=== PATIENT | male | born 1955 | race Caucasian/White ===

== ENCOUNTER 2017-10-14 10:20 | Inpatient (IN) ==
[2017-10-14] MEDS ORDERED: IOPAMIDOL 100 ML BOTTLE IJ ONE (10:21)
[2017-10-14] MEDS ORDERED: VANCOMYCIN 1,000 MG in 0.9 % SODIUM CHLORIDE 250 ML IV ONE (10:29)
[2017-10-14] MEDS ORDERED: PIPERACILLIN SODIUM/TAZOBACTAM 4.5 GM in DEXTROSE 5% IN WATER 50 ML IV ONE (10:29)
[2017-10-14] MEDS ORDERED: DILTIAZEM 25 MG/5 ML VIAL IV ONE (10:30)
[2017-10-14] MEDS ORDERED: 0.9 % SODIUM CHLORIDE 1,000 ML IV ONE ×3 (10:30→11:23)
[2017-10-14] MEDS ORDERED: MAGNESIUM SULFATE 2 GM/50 ML BAG IV ONE (10:31)
--- NOTE | 2017-10-14 10:39 | Emergency Department Note ---
Arrhythmia/Palpitations HPI - General Chief Complaint: Arrhythmia/Palpitations Stated Complaint: Tachycardia. Chest pain Time Seen by Provider: 10/14/17 10:28 Source: patient Mode of arrival: wheelchair Limitations: no limitations - History of Present Illness HPI Narrative: Patient seen critical care. Rapid heart rate, wheeled over from his physician' s office. Reports chest pressure and palpitations that began approximately one hour prior to his exam with his primary physician this morning. Comes in the setting of increasing low back pain, flank pain, abdominal distention with pain. Associated malaise. Unclear fever. Drinking increasing amounts of alcohol for "control my back pain". Several beers with hard alcohol every day History otherwise limited, patient in extremis. asplenia due to trauma and surgical removal - Related Data Home Medications Medication Instructions Recorded Confirmed Valsartan [Diovan] 80 mg PO DAILY 07/12/17 10/14/17 budesonide-formoterol HFA 80 2 puff INHALATION BID 08/12/17 10/14/17 mcg-4.5 mcg/actuation aerosol inhaler oxyCODONE HCL [Oxycodone HCl] 5 mg PO Q4HP PRN 10/14/17 10/14/17 Allergies Allergy/AdvReac Type Severity Reaction Status Date / Time No Known Drug Allergies Allergy Verified 10/14/17 10:29 Review of Systems All systems ED: reviewed and negative except as stated. Past Medical History - Past Medical History Attestation: Yes: The following information was validated with the patient. Medical history: Reports: other (Chronic back pain; alcohol abuse; asplenic) Surgical history ED: Reports: other (spleen removal; low back surgery) Family history: Reports: non-contributory - Social History smoking status: Current every day smoker Physical Exam Limitations: no limitations General appearance: alert, anxious, in distress, other (Central wasting distended abdomen) Head: atraumatic Eye: Present: normal appearance. Absent: scleral icterus ENT: normal exam, mucous membranes moist Neck: Present: normal inspection. Absent: meningismus Chest: Present: normal inspection, symmetric chest wall rise Respiratory: Present: normal lung sounds bilaterally. Absent: respiratory distress Cardiovascular: Present: tachycardia, irregular rhythm. Absent: systolic murmur Abdominal: Present: distention, tenderness, guarding, rebound, scar (midline). Absent: soft, rigidity Extremities: Present: other (thin, no edema) Neurological: Present: alert, oriented X3 Psychiatric: Present: anxious Skin: Present: other (no petechia). Absent: rash Course - Reevaluation(s) Reevaluation #1: improved rate and pain control; antibiotics handing; Time: 11:13 Reevaluation #2: requested to the bedside for reassessment; increasing pain report; patient with severe epigastric pain, radiating to mid back; pacing repeat EKG, patient converted to NSR; no ischemic findings pain consistent with tense ascites; pending paracentesis; r/o SBP Time: 14:53 Vital Signs Temperature 97.1 F 10/14/17 10:23 Pulse Rate 185 H 10/14/17 10:23 Respiratory Rate 24 H 10/14/17 10:23 Blood Pressure 170/80 10/14/17 10:23 Pulse Oximetry (%) 97 10/14/17 10:23 Temperature 97.1 F 10/14/17 10:23 Pulse Rate 135 H 10/14/17 14:17 Respiratory Rate 22 10/14/17 14:17 Blood Pressure 120/76 10/14/17 14:17 Pulse Oximetry (%) 91 10/14/17 14:17 Arrhythmia/Palpitations - Lab Data Lab results reviewed: Yes I reviewed the patient's lab results. Result diagrams: 10/14/17 10:29 10/14/17 11:08 Lab Results 10/14/17 10/14/17 10/14/17 Range/Units 10:29 10:57 11:04 WBC 12.4 H (4.5-11.0) K/mcL RBC 3.72 L (4.50-5.90) M/mcL Hgb 13.6 (13.5-16.5) g/dL Hct 40.0 L (41.0-55.0) % POC Hct (41.0-55.0) % MCV 107.4 H (80.0-100.0) fL MCH 36.6 H (26.0-34.0) pg MCHC 34.1 (31.0-36.0) g/dL RDW 14.8 H (11.5-14.5) % Plt Count 101 L (140-440) K/mcL MPV 12.8 H (7.4-10.4) fL Gran % 59.6 (38.0-78.0) % Lymph % (Auto) 21.8 (15.5-49.0) % [place] % (Auto) 15.1 H (1.0-12.0) % Eos % (Auto) 2.2 (0.0-7.0) % Baso % (Auto) 1.3 (0.0-2.0) % Gran # 7.4 (1.8-8.0) K/mcL Lymph # (Auto) 2.7 (1.5-4.8) K/mcL [place] # (Auto) 1.9 H (0.1-0.9) K/mcL Eos # (Auto) 0.3 (0.0-0.7) K/mcL Baso # (Auto) 0.2 (0.0-0.3) K/mcL PT INR VBG Lactic Acid 5.3 H* (0.5-2.2) mmol/L POC Sodium (133-145) mmol/L Sodium (133-145) mmol/L POC Potassium (3.3-5.1) mmol/L Potassium (3.3-5.1) mmol/L POC Chloride (96-108) mmol/L Chloride (96-108) mmol/L Carbon Dioxide (22-30) mmol/L POC Total CO2 (22-30) mmol/L Anion Gap (8-16) POC BUN (6-20) mg/dl BUN (6-20) mg/dl Creatinine (0.7-1.2) mg/dl POC Creatinine (0.7-1.2) mg/dl GFR Calculation Glucose (70-105) mg/dL POC Glucose (70-105) mg/dL Calcium (8.6-10.4) mg/dl POC WB Ioniz Calcium (1.16-1.32) mmol/L Magnesium (1.6-2.5) mg/dL Total Bilirubin (0.0-1.0) mg/dL AST (0-37) U/l ALT (0-40) U/l Alkaline Phosphatase (39-117) U/L Troponin T < 0.01 (0-0.03) ng/ml Total Protein (5.9-8.4) gm/dL Albumin (3.2-5.2) gm/dL Globulin (2.2-3.7) gm/dL Albumin/Globulin Ratio (1.0-2.3) Amylase (28-100) U/L Lipase (7-60) U/L 10/14/17 10/14/17 10/14/17 Range/Units 11:08 11:10 12:24 WBC (4.5-11.0) K/mcL RBC (4.50-5.90) M/mcL Hgb (13.5-16.5) g/dL Hct (41.0-55.0) % POC Hct 47.0 (41.0-55.0) % MCV (80.0-100.0) fL MCH (26.0-34.0) pg MCHC (31.0-36.0) g/dL RDW (11.5-14.5) % Plt Count (140-440) K/mcL MPV (7.4-10.4) fL Gran % (38.0-78.0) % Lymph % (Auto) (15.5-49.0) % [place] % (Auto) (1.0-12.0) % Eos % (Auto) (0.0-7.0) % Baso % (Auto) (0.0-2.0) % Gran # (1.8-8.0) K/mcL Lymph # (Auto) (1.5-4.8) K/mcL [place] # (Auto) (0.1-0.9) K/mcL Eos # (Auto) (0.0-0.7) K/mcL Baso # (Auto) (0.0-0.3) K/mcL PT TNP 16.7 H INR TNP 1.3 H VBG Lactic Acid (0.5-2.2) mmol/L POC Sodium 139 (133-145) mmol/L Sodium 138 (133-145) mmol/L POC Potassium 3.4 (3.3-5.1) mmol/L Potassium 3.3 (3.3-5.1) mmol/L POC Chloride 103 (96-108) mmol/L Chloride 100 (96-108) mmol/L Carbon Dioxide 18 L (22-30) mmol/L POC Total CO2 21 L (22-30) mmol/L Anion Gap 20.0 H (8-16) POC BUN 13 (6-20) mg/dl BUN 13 (6-20) mg/dl Creatinine 0.7 (0.7-1.2) mg/dl POC Creatinine 0.8 (0.7-1.2) mg/dl GFR Calculation 103 Glucose 103 (70-105) mg/dL POC Glucose 101 (70-105) mg/dL Calcium 8.1 L (8.6-10.4) mg/dl POC WB Ioniz Calcium 1.02 L (1.16-1.32) mmol/L Magnesium 1.6 (1.6-2.5) mg/dL Total Bilirubin 2.8 H (0.0-1.0) mg/dL AST 119 H (0-37) U/l ALT 65 H (0-40) U/l Alkaline Phosphatase 218 H (39-117) U/L Troponin T (0-0.03) ng/ml Total Protein 6.3 (5.9-8.4) gm/dL Albumin 3.1 L (3.2-5.2) gm/dL Globulin 3.2 (2.2-3.7) gm/dL Albumin/Globulin Ratio 1.0 (1.0-2.3) Amylase 95 (28-100) U/L Lipase 33 (7-60) U/L - Radiology Data Radiology results reviewed: Yes I reviewed the patient's radiology results. CT results of abd reviewed Chest xray nl - EKG Data EKG attestation: Yes I reviewed and interpreted this EKG. Rhythm: A.Fib (RVR) Critical Care Time Critical Care Time: Yes Total Critical Care Time: 105 Attestation: asplenic, A. fib with RVR, acute abdomen multiple reassessments over 5 hrs ER stay Disposition Pt seen by [employer]CH[employer] APPRENTICE/PA only: No Clinical Impression: SBP (spontaneous bacterial peritonitis), Lactic acid acidosis, Post-splenectomy Atrial fibrillation Qualifiers: Atrial fibrillation type: unspecified Qualified Code(s): I48.91 - Unspecified atrial fibrillation Sepsis Qualifiers: Sepsis type: sepsis due to unspecified organism Qualified Code(s): A41.9 - Sepsis, unspecified organism Cirrhosis of liver with ascites Qualifiers: Hepatic cirrhosis type: alcoholic cirrhosis Qualified Code(s): K70.31 - Alcoholic cirrhosis of liver with ascites Disposition: Xfer As Inpt ([facility]) Condition: Critical Referrals: Vitaliy Chen PA-C [Primary Care Provider] -
[2017-10-14] MEDS ORDERED: fentaNYL 100 MCG/2 ML VIAL IV ONE ×2 (10:50→12:13)
[2017-10-14] MEDS ORDERED: DILTIAZEM 125 MG in DEXTROSE 5% IN WATER 100 ML IV SCH (11:15)
[2017-10-14 11:33] LABS: Basophils # (Auto) 0.2 K/mcL (0.0-0.3); Basophils % (Auto) 1.3 % (0.0-2.0); Eosinophils # (Auto) 0.3 K/mcL (0.0-0.7); Eosinophils % (Auto) 2.2 % (0.0-7.0); Granulocytes % (Auto) 59.6 % (38.0-78.0); Lymphocytes # (Auto) 2.7 K/mcL (1.5-4.8); Lymphocytes % (Auto) 21.8 % (15.5-49.0); Mean Cell Volume 107.4 fL (80.0-100.0); Mean Corpuscular HGB Conc 34.1 g/dL (31.0-36.0); Mean Corpuscular Hemoglobin 36.6 pg (26.0-34.0); Monocytes # (Auto) 1.9 K/mcL (0.1-0.9); Monocytes % (Auto) 15.1 % (1.0-12.0); Platelet Count 101 K/mcL (140-440); RBC 3.72 M/mcL (4.50-5.90); Red Cell Distribution Width 14.8 % (11.5-14.5)
[2017-10-14 11:59] LABS: ALT/SGPT 65 U/l (0-40); Albumin 3.1 gm/dL (3.2-5.2); Alkaline Phosphatase 218 U/L (39-117); Amylase 95 U/L (28-100); Blood Urea Nitrogen 13 mg/dl (6-20); Lipase 33 U/L (7-60); Magnesium 1.6 mg/dL (1.6-2.5)
[2017-10-14] MEDS ORDERED: fentaNYL 100 MCG/2 ML VIAL IV PRN (12:15)
--- NOTE | 2017-10-14 12:25 | XRay Report ---
CLINICAL INFORMATION: Tachycardia and chest pain COMPARISON: None. FINDINGS: Heart is mildly enlarged. Mediastinum is unremarkable. Pulmonary vessels are mildly distended and there is mild interstitial edema in both lungs. Minor bibasilar atelectasis noted. Small right pleural effusion is appreciated IMPRESSION: Moderate CHF Interpreted and Authenticated by: Cristian Ozuna 10/14/17
[2017-10-14] MEDS: HYDROmorphone 2 MG/ML SYRINGE IV PRN ×2 (12:40→13:58)
[2017-10-14] MEDS ORDERED: ONDANSETRON 4 MG/2 ML VIAL IV ONE (12:40)
[2017-10-14] MEDS ORDERED: ONDANSETRON 4 MG/2 ML VIAL ONE (12:49)
--- NOTE | 2017-10-14 13:54 | Cat Scan Report ---
CLINICAL INFORMATION: New onset ascites COMPARISON: Very limited shot tube machine tender images of the upper abdomen from a lumbar spine MRI 08/07/2017. TECHNIQUE: Following enteric contrast, 80 cc of Isovue-300 were injected intravenously, and 60 seconds later, 0.625 mm helical slices were obtained from the mid heart through the subtrochanteric regions. Following reconstruction, 2.5 mm sagittal, coronal and axial reformatted images were processed and reviewed at bone, lung and soft tissue windows. Five minutes later, 0.625 mm helical slices were obtained from the mid heart through the kidneys and viewed at soft tissue windows.The exam was performed using radiation dose optimization techniques including, but not limited to, automated exposure control, adjustment of the mA and/or kV according to patient size and use of iterative reconstruction technique. FINDINGS: There is moderate subsegmental atelectasis in the posterior lower lobes and small bilateral pleural effusions. The visualized heart is borderline enlarged. Images through the abdomen show moderate cirrhotic changes. A 2.4 cm fat-containing lobulated mass in the medial segment of the left lower lobe was not definitely seen on the previous study. Moderate ascites seen throughout the abdomen and pelvis. Portal vein and tributaries are normal caliber - no evidence of portal hypertension. The gallbladder is surrounded by ascites, but the wall appears normal thickness. The intrahepatic and common bile ducts are normal caliber. A 16 mm low-attenuation lesion noted in the posterior cortex of the inferior pole right kidney. The remainder of both kidneys, adrenal glands, pancreas are unremarkable. The spleen has been surgically removed. The aorta is normal in caliber. Moderate as chronic plaque is noted. Celiac, SMA, SCOTT and renal arteries are unremarkable. Images through the pelvis show urinary bladder to be normal. Prostate and seminal vesicles are unremarkable. Bone windows show no osseous abnormality IMPRESSION: 1. Moderate cirrhotic changes progressing rapidly over the past two months. There is moderate ascites throughout the abdomen and pelvis. No definite evidence of portal hypertension. 2. 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 It also represent an adenoma, focal nodular hyperplasia, teratoma or even hepatocellular carcinoma. Please correlate with alpha-fetoprotein and suggest ultrasound-guided biopsy 3. Subsegmental atelectasis both lower lobes and tiny bilateral pleural effusions. 4. 16 mm low-attenuation lesion posterior cortex inferior right kidney. Suggest renal ultrasound to determine whether it is a cyst or solid lesion 5. Splenectomy changes Interpreted and Authenticated by: Cristian Ozuna 10/14/17
[2017-10-14] MEDS ORDERED: KETOROLAC 30 MG/ML VIAL IV ONE (14:09)
[2017-10-14] MEDS ORDERED: ALBUMIN HUMAN 12.5 GM/50 ML BAG IV ONE (14:19)
[2017-10-14] MEDS ORDERED: ALBUMIN HUMAN 25 GM/100 ML BAG IV ONE (14:28)
--- NOTE | 2017-10-14 16:00 | Ultrasound Report ---
Ultrasound-guided paracentesis CLINICAL INFORMATION: Moderate ascites TECHNIQUE: Procedure and risks including possibility of bleeding, infection, and pneumothorax were explained to the patient. They understood and wished to proceed. With the patient in supine position, the fluid was first sonographically localized over the right flank in the subhepatic region. The skin overlying this region was marked, prepped and locally anesthetized with 1% lidocaine using a 25-gauge needle to the level the parietal peritoneum. An 18-gauge Yueh needle was then advanced under sonographic guidance into the ascites approximately 2.6 L of simple appearing ascites was aspirated. Post procedure scanning shows only minimal residual fluid. Patient tolerated procedure well without apparent complication. IMPRESSION: Successful ultrasound-guided paracentesis yielding 2.6 L cc of simple appearing ascites. No apparent complication. The patient was given concomitant IV albumin to prevent third spacing Interpreted and Authenticated by: Cristian Ozuna 10/14/17
[2017-10-14] MEDS ORDERED: PNEUMOCOCCAL 23-VAL P-SAC VAC 0.5 ML VIAL IM ONE (16:21)
[2017-10-14] MEDS ORDERED: NALOXONE HCL 0.4 MG/ML VIAL IV PRN (16:21)
[2017-10-14] MEDS ORDERED: DOCUSATE SODIUM 100 MG CAPSULE PO PRN (16:21)
[2017-10-14] MEDS ORDERED: ALBUTEROL SULFATE 2.5 MG/3 ML NEBULIZER NEB PRN (16:21)
[2017-10-14] MEDS ORDERED: MAGNESIUM HYDROXIDE 30 ML ORAL.SUSP PO PRN (16:21)
[2017-10-14] MEDS ORDERED: ONDANSETRON 4 MG/2 ML VIAL IV PRN (16:21)
--- NOTE | 2017-10-14 16:29 | Internal Med History&Physical ---
Medical - H&P: HPI Patient information: Note initiated : 10/14/17 at 4:20 pm Patient: Neal Bolaños 62 y/o M admitted on for Tachycardia, Chest Pain. History of present illness: Mr. Bolaños is a 62 year old with a past history of alcohol and tobacco abuse and hepatitis C. He also has chronic back pain, and underwent back surgery for what sounds like a discectomy about 2-1/2 weeks ago. When he saw his surgeon in follow-up, he complained that his abdomen was getting more and more distended , and that he was having abdominal pain that was radiating into his back. His surgeon strongly recommended that he see his PCP today, which he did. He was then referred to the emergency room for further evaluation. The patient had somewhat altered mental status on arrival. He was also found to be in A. fib with a rate of 170. Extremities were a bit mottled. Paracentesis was performed and showed turbid fluid, consistent with probable spontaneous bacterial peritonitis, cirrhosis with ascites. Elevated lactic acid was consistent with sepsis. The patient is now admitted for further workup and management. He and his deny that he has had recent fever or chills. He believes he has had abdominal swelling for about 1 month now. He was told of hepatitis C 10 years or so ago and told that he had liver damage, but does not have any follow-up for his liver health. He denies headaches or dizziness new eye or ear changes, sore throat or cough. He describes lower sternal chest pain in addition to epigastric pain today, which seems to be radiating towards his back between his shoulder blades. He has had increased shortness of breath since yesterday and worse today. He denies diaphoresis. He says he did vomit once in the emergency room today, and that was just clear fluid. He has diffuse abdominal pain. The pain did seem to improve after they took off about a liter of fluid in the emergency room. He denies palpitations, orthopnea, hematemesis, nausea. He does say that he is been struggling with some constipation which he blames on his pain medications. He denies dysuria. Medical History Sciatica, status post recent discectomy with orthopedics. Chronic back pain (Chronic) Hypertension (Chronic) alcohol abuse-he drinks about 2/5 of vodka per week, according to his . He has smoked cigarettes since about the age of 18, generally 1 pack per day. COPD History of hepatitis C History of splenectomy Social History The patient is and lives with his . He has a 40+ pack year smoking history, and still smokes 3-4 cigarettes per day. He drinks 3-4 drinks of alcohol per day, either beer or vodka, and his notes 2/5 of vodka per week. He only occasionally smokes marijuana. His says he has a [facility] eligibility, and wonders if he should follow-up with them. Family history: He believes his parents are alive and well. He has 1 sister who is paralyzed and resides in a wheelchair. Medication List budesonide-formoterol 80-4.5 mcg/actuation (Symbicort) 2 puffs Inhalation BID oxycodone 10 mg PO TID valsartan 80 mg PO DAILY Allergies/Adverse Reactions No Known Drug Allergies Allergy (Verified 10/14/17 10:29) Medical - H&P: Meds Home Medications Medication Instructions Recorded Confirmed Type Valsartan [Diovan] 80 mg PO DAILY 07/12/17 10/14/17 History budesonide-formoterol HFA 80 2 puff INHALATION BID 08/12/17 10/14/17 History mcg-4.5 mcg/actuation aerosol inhaler Symbicort 80-4.5 Mcg Inhaler 1 puff PO BID 10/14/17 10/14/17 History oxyCODONE HCL [Oxycodone HCl] 5 mg PO Q4HP PRN 10/14/17 10/14/17 History Allergies Allergy/AdvReac Type Severity Reaction Status Date / Time No Known Drug Allergies Allergy Verified 10/14/17 10:29 Medical - H&P: Exam - Constitutional Vitals: Temp Pulse Resp BP Pulse Ox 97.1 F 82 17 95/51 91 10/14/17 10:23 10/14/17 16:03 10/14/17 16:03 10/14/17 16:03 10/14/17 16:03 Heart rate ranges from 82-185, respiratory rate ranging from 11 -32, blood pressure 92 -170/68-83, O2 saturation 88 to 97% on room air On exam, he appears quite uncomfortable, and keeps shifting around due to the pain in his back. He is a bit sleepy at times, and occasionally falls asleep mid sentence. Otherwise, his answers to questions seem appropriate. Head: Normocephalic, atraumatic. Eyes: PERRLA, EOMI, anicteric. Ears: TMs and canals are clear. Pharynx: Pharynx is clear. Mucosa appears normal. Neck: Is supple, without lymphadenopathy, JVD, thyromegaly, bruits. Cardiac exam shows regular rate and rhythm with normal S1 and S2, without murmurs, rubs, gallops. Lungs have slightly decreased breath sounds at the bases, but otherwise are clear, without obvious rales, rhonchi, wheezes. Abdomen: Is quite protuberant, and is diffusely tender. There does not appear to be guarding or rebound. There are no definite masses. Bowel sounds are active. Does have fairly diffuse telangiectasias. Extremities: Show 1-2+ pitting edema of the feet and lower ankles. Pulses are somewhat decreased. Neurologic exam: The patient is generally awake but at times sleepy. He answers questions appropriately. Mood is calm. He is cooperative. Cranial nerves are grossly intact. Motor exam is grossly nonfocal. Medical - H&P: Reslt - Labs CBC & Chem 7: 10/14/17 10:29 10/14/17 11:08 Labs: Short CBC 10/14/17 Range/Units 10:29 WBC 12.4 H (4.5-11.0) K/mcL Hgb 13.6 (13.5-16.5) g/dL Hct 40.0 L (41.0-55.0) % Plt Count 101 L (140-440) K/mcL BMP 10/14/17 11:08 Sodium 138 Potassium 3.3 Chloride 100 Carbon Dioxide 18 L BUN 13 Creatinine 0.7 Glucose 103 Calcium 8.1 L Cardiac Enzymes 10/14/17 10/14/17 Range/Units 11:04 14:30 Troponin T < 0.01 0.04 H* (0-0.03) ng/ml Liver Function 10/14/17 Range/Units 11:08 Total Bilirubin 2.8 H (0.0-1.0) mg/dL AST 119 H (0-37) U/l ALT 65 H (0-40) U/l Alkaline Phosphatase 218 H (39-117) U/L Albumin 3.1 L (3.2-5.2) gm/dL October 14: Lactic acid #1: 5.3; lactic acid #2: 3.4 Peritoneal fluid Gram stain: Shows moderate polys, mononuclear cells, many red blood cells, no organisms. EKG at 10:13 AM: Shows A. fib with a rate of 170, with nonspecific ST-T changes. EKG at 2:39 PM: Shows probable sinus rhythm, although P waves not well visualized. Next CT of the abdomen: IMPRESSION: 1. Moderate cirrhotic changes progressing rapidly over the past two months. There is moderate ascites throughout the abdomen and pelvis. No definite evidence of portal hypertension. 2. 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 It also represent an adenoma, focal nodular hyperplasia, teratoma or even hepatocellular carcinoma. Please correlate with alpha-fetoprotein and suggest ultrasound-guided biopsy 3. Subsegmental atelectasis both lower lobes and tiny bilateral pleural effusions. 4. 16 mm low-attenuation lesion posterior cortex inferior right kidney. Suggest renal ultrasound to determine whether it is a cyst or solid lesion 5. Splenectomy changes Chest x-ray: Shows mild cardiomegaly, mild pulmonary vascular congestion consistent with mild CHF. Small right pleural effusion. Medical - H&P: A/P (1) Elevated troponin Current visit: No Status: Acute (2) CHF (congestive heart failure) Current visit: No Status: Acute (3) Atrial fibrillation Current visit: No Status: Acute (4) Cirrhosis of liver with ascites Current visit: No Status: Acute (5) Lactic acid acidosis Current visit: No Status: Acute (6) SBP (spontaneous bacterial peritonitis) Current visit: No Status: Acute (7) Sepsis Current visit: No Status: Acute - Narrative A/P Narrative: #1. Infectious disease/sepsis. Patient presents appearing very ill, with leukocytosis, tachycardia, lactic acidosis. Peritoneal fluid analysis is consistent with likely spontaneous bacterial peritonitis. -Patient was given IV fluids in the ER, and lactic acid is trending down. We will need to be cautious with this, as he appears to have both ascites and CHF. -GI consult. -Empiric antibiotic coverage with Zosyn and ciprofloxacin. -Blood and peritoneal fluid cultures and other studies are pending. #2. Cardiac. Patient presents with dyspnea, and atrial fibrillation with rapid ventricular response, apparently of new onset. -Admit to ICU, monitor on telemetry. -Patient was given diltiazem in the emergency room, and can appears to have converted to sinus rhythm. To need to monitor. -Initial troponin is elevated, continue to trend. -Check echocardiogram. 3. CODE STATUS: Full code. Patient would not want long-term life support. His will act as his POA. 4. DVT prophylaxis: Use low-dose subcu heparin for now, to keep an eye on his platelets, which are borderline low. 5. History of alcohol abuse. Monitor with CIWA protocol. 6. Tobacco abuse. -NicoDerm patch. 7. GI. Patient presents with apparent alcoholic liver cirrhosis, with associated ascites, which apparently has been getting quite a bit worse lately. CT scan also shows a liver mass, which could be benign, but may also be malignant. -GI consult. -Check alpha-fetoprotein, and consider biopsy. -GI prophylaxis with Protonix. -He will likely need to be discharged on a combination of Lasix and spironolactone to help manage his ascites. Patient appears to be declining a Chamberlain catheter to help keep an eye on intake and output. 8. Renal. Patient also has a tiny lesion in the right kidney, which might require ultrasound to follow-up further to see if it is a cyst. 9. 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 --be sure he is up-to-date on flu vaccine and Pneumovax. Next 10. Chronic pain. He apparently has chronic disc issues. He also has a new pain that is slightly higher this evening. We may try Lidoderm on that. Also use IV morphine with or without muscle relaxers as needed. Disposition: The patient's mentions they might be considering moving to the [facility] so that he can be connected with the [facility] for his care. Today's visit took approximately 70 minutes, review his case with the ER MD, review his records, interview and examine him, review plan of care with the patient and his family, and write orders. I have also placed a page out to GI, to discuss GI consultation.
[2017-10-14 16:41] LABS: Glucose,Peritoneal Fluid 110 mg/dL; LDH,Peritoneal Fluid 49 U/L; Total Protein,Peritoneal Fluid 0.8 gm/dL
[2017-10-14 17:19] LABS: Appearance, Body Fluid HAZY; Color, Body Fluid YELLOW; Nucleated Cells,Body Fld 349 /cumm; RBC, Body Fluid < 50000 /cumm
[2017-10-14 17:21] LABS: Mesothelial,Body Fluid 9 %; Total Cell Count Body Fld 100
[2017-10-14] MEDS: [UNRECOGNIZED DRUG - OTHER] IV SCH (17:25)
[2017-10-14] MEDS: POTASSIUM CHLORIDE IV SCH (17:25)
[2017-10-14] MEDS: DEXTROSE 5% IV SCH (17:25)
[2017-10-14] MEDS: CIPROFLOXACIN 400 MG/200 ML BAG IV SCH (17:25)
[2017-10-14] MEDS: PIPERACILLIN SODIUM/TAZOBACTAM 3.375 GM in DEXTROSE 5% IN WATER 50 ML IV SCH (18:09)
[2017-10-14] MEDS: cloNIDine HCL 0.1 MG TABLET PO PRN (18:20)
[2017-10-14] MEDS: LORazepam 2 MG/ML VIAL IV PRN (18:20)
[2017-10-14 22:08] LABS: Amphetamine Screen,Urine NONE DETECTED (NONDETECTED); Benzodiazepines Screen,Urine NONE DETECTED (NONDETECTED); Cocaine Screen,Urine NONE DETECTED (NONDETECTED); Opiate Screen,Urine SUSPECT POSITIVE (NONDETECTED)
[2017-10-14] MEDS: NICOTINE 7 MG PATCH TOPICAL SCH (22:37)
[2017-10-14] MEDS: HEPARIN 5,000 UNIT/ML VIAL SQ SCH (22:37)
[2017-10-14] MEDS: 0.9 % SODIUM CHLORIDE 10 ML SYRINGE IV SCH ×2 (22:37→22:38)
[2017-10-15] MEDS: DILTIAZEM 125 MG in DEXTROSE 5% IN WATER 100 ML IV SCH ×2 (00:15→11:26)
[2017-10-15] MEDS: PIPERACILLIN SODIUM/TAZOBACTAM 3.375 GM in DEXTROSE 5% IN WATER 50 ML IV SCH ×4 (00:17→16:46)
[2017-10-15] MEDS: LORazepam 2 MG/ML VIAL IV PRN ×2 (01:30→21:35)
[2017-10-15 05:09] LABS: Basophils # (Auto) 0.1 K/mcL (0.0-0.3); Basophils % (Auto) 1.1 % (0.0-2.0); Eosinophils # (Auto) 0.8 K/mcL (0.0-0.7); Eosinophils % (Auto) 7.4 % (0.0-7.0); Granulocytes % (Auto) 49.2 % (38.0-78.0); Lymphocytes # (Auto) 3.1 K/mcL (1.5-4.8); Lymphocytes % (Auto) 27.1 % (15.5-49.0); Mean Corpuscular HGB Conc 33.4 g/dL (31.0-36.0); Mean Corpuscular Hemoglobin 36.4 pg (26.0-34.0); Monocytes # (Auto) 1.7 K/mcL (0.1-0.9); Monocytes % (Auto) 15.2 % (1.0-12.0); Platelet Count 88 K/mcL (140-440); RBC 3.11 M/mcL (4.50-5.90); Red Cell Distribution Width 15.4 % (11.5-14.5)
[2017-10-15 05:29] LABS: ALT/SGPT 47 U/l (0-40); Albumin 2.8 gm/dL (3.2-5.2); Albumin/Globulin Ratio 1.2 (1.0-2.3); Alkaline Phosphatase 119 U/L (39-117); Bilirubin,Direct 2.2 mg/dL (0.0-0.3); Blood Urea Nitrogen 18 mg/dl (6-20); Gamma Glutamyl Transpeptidase 85 U/L (8-61); Uric Acid 4.8 mg/dL (2.5-8.0)
[2017-10-15] MEDS: 0.9 % SODIUM CHLORIDE 10 ML SYRINGE IV SCH ×6 (05:46→22:05)
[2017-10-15] MEDS: [UNRECOGNIZED DRUG - OTHER] IV SCH ×2 (08:14→20:45)
[2017-10-15] MEDS: DEXTROSE 5% IV SCH ×2 (08:14→20:45)
[2017-10-15] MEDS: POTASSIUM CHLORIDE IV SCH ×2 (08:14→20:45)
[2017-10-15] MEDS: THIAMINE 100 MG/ML VIAL IM SCH (08:15)
[2017-10-15] MEDS: CIPROFLOXACIN 400 MG/200 ML BAG IV SCH ×2 (08:15→21:11)
[2017-10-15] MEDS: MULTIVIT,THER IRON,CA,FA & MIN 1 TABLET PO SCH (11:23)
[2017-10-15] MEDS: PANTOPRAZOLE 40 MG VIAL IV SCH (11:23)
[2017-10-15] MEDS: FUROSEMIDE 20 MG TABLET PO SCH (11:23)
[2017-10-15] MEDS: SPIRONOLACTONE 25 MG TABLET PO SCH ×2 (11:23→15:58)
[2017-10-15] MEDS: FOLIC ACID 1 MG TABLET PO SCH (11:23)
[2017-10-15] MEDS: HEPARIN 5,000 UNIT/ML VIAL SQ SCH ×2 (11:24→21:12)
[2017-10-15] MEDS: NICOTINE 7 MG PATCH TOPICAL SCH (11:25)
--- NOTE | 2017-10-15 11:43 | Internal Med Progress Note ---
Medical - PN: Subj Patient information: Note initiated : 10/15/17 at 11:43 am Service Date, if different from initiated Date: [] Patient: Neal Bolaños 62 y/o M admitted on 10/14/17 for AFib, Sepsis, Spontaneous Bacterial Peritonitis. Chief Complaint: [] Interval history: October 14, 2017: History of present illness: Mr. Bolaños is a 62 year old with a past history of alcohol and tobacco abuse and hepatitis C. He also has chronic back pain, and underwent back surgery for what sounds like a discectomy about 2-1/2 weeks ago. When he saw his surgeon in follow-up, he complained that his abdomen was getting more and more distended , and that he was having abdominal pain that was radiating into his back. His surgeon strongly recommended that he see his PCP today, which he did. He was then referred to the emergency room for further evaluation. The patient had somewhat altered mental status on arrival. He was also found to be in A. fib with a rate of 170. Extremities were a bit mottled. Paracentesis was performed and showed turbid fluid, consistent with probable spontaneous bacterial peritonitis, cirrhosis with ascites. Elevated lactic acid was consistent with sepsis. The patient is now admitted for further workup and management. He and his deny that he has had recent fever or chills. He believes he has had abdominal swelling for about 1 month now. He was told of hepatitis C 10 years or so ago and told that he had liver damage, but does not have any follow-up for his liver health. He denies headaches or dizziness new eye or ear changes, sore throat or cough. He describes lower sternal chest pain in addition to epigastric pain today, which seems to be radiating towards his back between his shoulder blades. He has had increased shortness of breath since yesterday and worse today. He denies diaphoresis. He says he did vomit once in the emergency room today, and that was just clear fluid. He has diffuse abdominal pain. The pain did seem to improve after they took off about a liter of fluid in the emergency room. He denies palpitations, orthopnea, hematemesis, nausea. He does say that he is been struggling with some constipation which he blames on his pain medications. He denies dysuria. October 15: The patient thinks she is feeling a bit better today. However he still having moderate abdominal discomfort related to abdominal distention. Unfortunately, he appears to have gained about 5 pounds since admission. He denies fever chills, chest pain or palpitations. He does not have shortness of breath, but notes his abdomen seems to create a lot of pressure in his chest area as well. He had declined Chamberlain catheter last night, but had great difficulty emptying his bladder, so Chamberlain catheter was placed. He is continuing to have significant mid back pain. He says he thinks oral oxycodone works better for him than IV morphine. He is concerned that he may have constipation. He was up with physical therapy today, and continues to need moderate assistance for all mobility. Occupational Therapy also notes the patient has decreased cognition and coordination. He is requiring 5 L of oxygen to keep his O2 saturations above 90%. - Constitutional Vitals: Vital Signs Temp Pulse Resp BP Pulse Ox 99.0 F H 85 12 126/67 96 10/15/17 04:01 10/15/17 06:31 10/15/17 06:31 10/15/17 06:01 10/15/17 06:31 Period Temp Pulse Resp BP Sys/[place] Pulse Ox Last 24 Hr 98.4 F-99.0 F 71-155 8-30 86-149/49-126 82-96 Intake and Output 10/14/17 10/15/17 10/15/17 21:59 05:59 13:59 Intake Total 342 / 342 610 / 610 1185 / 1185 Output Total 300 / 300 420 / 420 Balance 42 / 42 190 / 190 1185 / 1185 Weight 187 lb He is awake, but a bit groggy this morning. Neck is supple without obvious JVD. Cardiac exam shows regular rate and rhythm. Lungs have decreased breath sounds at the bases, but are otherwise clear. Abdomen is quite protuberant and distended. Extremities show 2-3+ pitting edema. Neurologic exam: Patient is somewhat groggy. It is unclear if this is related to his disease or to his medications. Intake & Output: Intake & Output 10/14/17 10/15/17 10/15/17 21:59 05:59 13:59 Intake Total 342 / 342 610 / 610 1185 / 1185 Output Total 300 / 300 420 / 420 Balance 42 / 42 190 / 190 1185 / 1185 Weight 187 lb Intake: IV 222 / 222 250 / 250 1065 / 1065 BUMINATE 25 gm In 100 ml As IV 100 / 100 [facility] Rx#:[id number] Cardizem 125 mg In Dextrose 5% 72 / 72 in Water 100 ml @ 5 MG/HR 5 mls /hr IV Q12H [facility] Rx#:[id number] Zosyn 3.375 gm In Dextrose 5% 50 / 50 50 / 50 50 / 50 in Water 50 ml @ 100 mls/hr IV Q6H [facility] Rx#:[id number] Potassium Chloride 30 Meq In 1015 / 1015 Dextrose 5%-Ns IV Solution 1, 000 ml @ 75 mls/hr IV .[id number] [facility] Rx#:[id number] Oral 120 / 120 360 / 360 120 / 120 Output: Urine Catheter Amount 300 / 300 420 / 420 Other: Meal Dinner Breakfast Percent of Meal Consumed 25% 100% Medical - PN: Obj Da - Labs CBC & Chem 7: 10/15/17 04:10 10/15/17 04:10 Labs: Abnormal Lab Results 10/15/17 10/15/17 10/15/17 04:10 04:10 04:10 WBC 11.4 H RBC 3.11 L Hgb 11.3 L Hct 33.9 L MCV 109.0 H MCH 36.4 H RDW 15.4 H Plt Count 88 L MPV 11.7 H [place] % (Auto) 15.2 H Eos % (Auto) 7.4 H [place] # (Auto) 1.7 H Eos # (Auto) 0.8 H PT INR VBG Lactic Acid Carbon Dioxide POC Total CO2 Anion Gap Calcium 7.6 L POC WB Ioniz Calcium Total Bilirubin 3.9 H Direct Bilirubin 2.2 H GGT 85 H AST 90 H ALT 47 H Alkaline Phosphatase 119 H Lactate Dehydrogenase 265 H Troponin T NT-Pro-B Natriuret Pep Total Protein 5.1 L Albumin 2.8 L Alpha Fetoprotein 80.4 H Urine Opiates Screen 10/14/17 10/14/17 10/14/17 20:35 19:55 19:55 WBC RBC Hgb Hct MCV MCH RDW Plt Count MPV [place] % (Auto) Eos % (Auto) [place] # (Auto) Eos # (Auto) PT INR VBG Lactic Acid 2.6 H Carbon Dioxide POC Total CO2 Anion Gap Calcium POC WB Ioniz Calcium Total Bilirubin Direct Bilirubin GGT AST ALT Alkaline Phosphatase Lactate Dehydrogenase Troponin T NT-Pro-B Natriuret Pep 632.1 H Total Protein Albumin Alpha Fetoprotein Urine Opiates Screen Suspect positive A 10/14/17 10/14/17 10/14/17 15:15 14:30 12:24 WBC RBC Hgb Hct MCV MCH RDW Plt Count MPV [place] % (Auto) Eos % (Auto) [place] # (Auto) Eos # (Auto) PT 16.7 H INR 1.3 H VBG Lactic Acid 3.4 H Carbon Dioxide POC Total CO2 Anion Gap Calcium POC WB Ioniz Calcium Total Bilirubin Direct Bilirubin GGT AST ALT Alkaline Phosphatase Lactate Dehydrogenase Troponin T 0.04 H* NT-Pro-B Natriuret Pep Total Protein Albumin Alpha Fetoprotein Urine Opiates Screen 10/14/17 10/14/17 10/14/17 11:08 10:57 10:29 WBC 12.4 H RBC 3.72 L Hgb Hct 40.0 L MCV 107.4 H MCH 36.6 H RDW 14.8 H Plt Count 101 L MPV 12.8 H [place] % (Auto) 15.1 H Eos % (Auto) [place] # (Auto) 1.9 H Eos # (Auto) PT INR VBG Lactic Acid 5.3 H* Carbon Dioxide 18 L POC Total CO2 21 L Anion Gap 20.0 H Calcium 8.1 L POC WB Ioniz Calcium 1.02 L Total Bilirubin 2.8 H Direct Bilirubin GGT AST 119 H ALT 65 H Alkaline Phosphatase 218 H Lactate Dehydrogenase Troponin T NT-Pro-B Natriuret Pep Total Protein Albumin 3.1 L Alpha Fetoprotein Urine Opiates Screen October 15: Alpha-fetoprotein is elevated at 80 Peritoneal fluid analysis: 13% neutrophils, 21% lymphocytes, 57 macrophages. Total protein 0.8, albumin 0.4, LDH 49, glucose 110, amylase 26, lipase 21 Echocardiogram: Shows normal left ventricular systolic function with ejection fraction 55%. No wall motion abnormalities. No valvular abnormalities. October 14: Nasal MRSA screen was negative. Lactic acid #1: 5.3; lactic acid #2: 3.4 Peritoneal fluid Gram stain: Shows moderate polys, mononuclear cells, many red blood cells, no organisms. EKG at 10:13 AM: Shows A. fib with a rate of 170, with nonspecific ST-T changes. EKG at 2:39 PM: Shows probable sinus rhythm, although P waves not well visualized. Next CT of the abdomen: IMPRESSION: 1. Moderate cirrhotic changes progressing rapidly over the past two months. There is moderate ascites throughout the abdomen and pelvis. No definite evidence of portal hypertension. 2. 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 It also represent an adenoma, focal nodular hyperplasia, teratoma or even hepatocellular carcinoma. Please correlate with alpha-fetoprotein and suggest ultrasound-guided biopsy 3. Subsegmental atelectasis both lower lobes and tiny bilateral pleural effusions. 4. 16 mm low-attenuation lesion posterior cortex inferior right kidney. Suggest renal ultrasound to determine whether it is a cyst or solid lesion 5. Splenectomy changes Chest x-ray: Shows mild cardiomegaly, mild pulmonary vascular congestion consistent with mild CHF. Small right pleural effusion. Meds: Medications Albuterol Sulfate (Ventolin) 2.5 mg NEB Q4HRT PRN PRN Reason: Shortness Of Breath Or Wheezing Clonidine HCl (Catapres) 0.1 mg PO Q4HP PRN PRN Reason: Alcohol Withdrawal Last Admin: 10/14/17 18:20 Dose: 0.1 mg Docusate Sodium (Colace) 100 mg PO BID PRN PRN Reason: Constipation Folic Acid (Folic Acid) 1 mg PO DAILY [facility] Last Admin: 10/15/17 11:23 Dose: 1 mg Furosemide (Lasix) 20 mg PO DAILY [facility] Last Admin: 10/15/17 11:23 Dose: 20 mg Heparin Sodium (Porcine) (Heparin) 5,000 unit SQ Q12 [facility] Last Admin: 10/15/17 11:24 Dose: 5,000 unit Diltiazem HCl 125 mg/ Dextrose 125 mls @ 5 mls/hr IV Q12H ANNELIESE; 5 MG/HR PRN Reason: Protocol Last Admin: 10/15/17 11:26 Dose: Not Given Ciprofloxacin (Cipro) 400 mg in 200 mls @ 200 mls/hr IV BID [facility] Last Admin: 10/15/17 08:15 Dose: 200 mls/hr Potassium Chloride 30 meq/ (Dextrose/Sodium Chloride) 1,015 mls @ 75 mls/hr IV .[id number] [facility] Last Admin: 10/15/17 08:14 Dose: 75 mls/hr Piperacillin Sod/Tazobactam (Sod 3.375 gm/ Dextrose) 50 mls @ 100 mls/hr IV Q6H [facility] Last Infusion: 10/15/17 07:10 Dose: Infused Iron Carb/Multivit/[place]/Folic Acid (Multivitamin W/Minerals) 1 tab PO DAILY [facility] Last Admin: 10/15/17 11:23 Dose: 1 tab Lorazepam (Ativan) 0 mg IV Q4HP PRN; Protocol PRN Reason: Alcohol Withdrawal Last Admin: 10/15/17 01:30 Dose: 1 mg Magnesium Hydroxide (Milk Of Magnesia) 30 ml PO DAILYP PRN PRN Reason: Constipation Last Admin: 10/15/17 11:24 Dose: 30 ml Morphine Sulfate (Morphine) 4 mg IV Q2HP PRN PRN Reason: PAIN LEVEL > 6 Last Admin: 10/15/17 01:29 Dose: 4 mg Naloxone HCl (Narcan) 0.1 mg IV Q2MIN PRN PRN Reason: Opiate Reversal Nicotine (Nicoderm) 7 mg TOPICAL DAILY@1000 [facility] Last Admin: 10/15/17 11:25 Dose: 7 mg Ondansetron HCl (Zofran) 4 mg IV Q4-6HP PRN PRN Reason: Nausea And Vomiting Pantoprazole Sodium (Protonix) 40 mg IV QAMAC [facility] Last Admin: 10/15/17 11:23 Dose: 40 mg Sodium Chloride (Saline Flush) 10 ml IV Q8 [facility] Last Admin: 10/15/17 05:46 Dose: 10 ml Sodium Chloride (Saline Flush) 10 ml IV Q8 [facility] Last Admin: 10/15/17 05:46 Dose: Not Given Spironolactone (Aldactone) 25 mg PO BIDD [facility] Last Admin: 10/15/17 11:23 Dose: 25 mg Thiamine HCl (Vitamin B1) 100 mg IM DAILY [facility] Last Admin: 10/15/17 08:15 Dose: 100 mg Medical - PN: A/P - Time Spent With Patient Total time spent is greater than 50% in coordination of care (as documented) at patient's floor/unit and/or counseling patient: Greater than 35 minutes (1) Elevated troponin Status: Acute Current Visit: No (2) CHF (congestive heart failure) Status: Acute Current Visit: No (3) Atrial fibrillation Status: Acute Current Visit: No (4) Cirrhosis of liver with ascites Status: Acute Current Visit: No (5) Lactic acid acidosis Status: Acute Current Visit: No (6) SBP (spontaneous bacterial peritonitis) Status: Acute Current Visit: No (7) Sepsis Status: Acute Current Visit: No - Narrative A/P Narrative: #1. Infectious disease/sepsis. Patient presents appearing very ill, with leukocytosis, tachycardia, lactic acidosis. Peritoneal fluid analysis is consistent with likely spontaneous bacterial peritonitis. -Patient was given IV fluids in the ER, and lactic acid is trending down. We will need to be cautious with this, as he appears to have both ascites and CHF. -GI consult was requested, but the GI on-call doctor was actually unavailable. I have asked Dr. Antonio if he can step in and see the patient tomorrow.. -Empiric antibiotic coverage with Zosyn and ciprofloxacin. -Blood and peritoneal fluid cultures are pending. #2. Cardiac. Patient presents with dyspnea, and atrial fibrillation with rapid ventricular response, apparently of new onset. Atrial fibrillation resolved. Echocardiogram does not indicate any significant abnormalities. A. fib was likely due to acute illness. -Troponin bumped slightly on admission, but is back to normal today. 3. CODE STATUS: Full code. Patient would not want long-term life support. His will act as his POA. 4. DVT prophylaxis: Use low-dose subcu heparin for now, to keep an eye on his platelets, which are borderline low. 5. History of alcohol abuse. Monitor with CIWA protocol. 6. Tobacco abuse. -NicoDerm patch. 7. GI. Patient presents with apparent alcoholic liver cirrhosis, with associated ascites, which apparently has been getting quite a bit worse lately. CT scan also shows a liver mass, which could be benign, but may also be malignant. -GI consult. Alpha-fetoprotein level is elevated, which is worrisome. -GI prophylaxis with Protonix. -He will likely need to be discharged on a combination of Lasix and spironolactone to help manage his ascites. Spironolactone dose is increased, to see if he can tolerate this. I will request paracentesis with radiology under ultrasound, in addition to IV albumin tomorrow, after GI evaluation. 8. Renal. Patient also has a tiny lesion in the right kidney, which might require ultrasound to follow-up further to see if it is a cyst. 9. 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 --be sure he is up-to-date on flu vaccine and Pneumovax. 10. Chronic pain. He apparently has chronic disc issues. Patient requested switching IV morphine back to oral oxycodone today, so that was done. Disposition: The patient's mentions they might be considering moving to the [facility] so that he can be connected with the [facility] for his care. Approximately 35 minutes was spent today, reviewing patient's test results, interviewing and examining him, reviewing plan of care with the patient and his family, as well as staff, and touching base with GI. Medical - PN: Qual - VTE Deep Vein Thrombosis/Pulmonary Embolism Present on Admission: No
[2017-10-15] MEDS ORDERED: DILTIAZEM 125 MG in DEXTROSE 5% IN WATER 100 ML IV PRN (15:45)
[2017-10-15] MEDS: oxyCODONE HCL 5 MG TABLET PO PRN ×2 (17:43→21:17)
[2017-10-15] MEDS ORDERED: SPIRONOLACTONE 25 MG TABLET PO SCH (20:46)
[2017-10-15] MEDS: cloNIDine HCL 0.1 MG TABLET PO PRN (21:13)
[2017-10-15] MEDS: Budesonide/Formoterol Fumarate [Symbicort] 80-4.5 mcg Inhaler INH SCH (21:13)
[2017-10-16] MEDS: LORazepam 2 MG/ML VIAL IV PRN
[2017-10-16] MEDS: PIPERACILLIN SODIUM/TAZOBACTAM 3.375 GM in DEXTROSE 5% IN WATER 50 ML IV SCH ×5 (00:15→23:56)
[2017-10-16] MEDS: oxyCODONE HCL 5 MG TABLET PO PRN ×5 (01:02→21:22)
[2017-10-16] MEDS: 0.9 % SODIUM CHLORIDE 10 ML SYRINGE IV SCH ×5 (05:22→20:36)
[2017-10-16 05:30] LABS: Basophils # (Auto) 0.1 K/mcL (0.0-0.3); Basophils % (Auto) 0.9 % (0.0-2.0); Eosinophils # (Auto) 1.2 K/mcL (0.0-0.7); Eosinophils % (Auto) 8.9 % (0.0-7.0); Granulocytes % (Auto) 50.6 % (38.0-78.0); Lymphocytes # (Auto) 3.2 K/mcL (1.5-4.8); Lymphocytes % (Auto) 22.9 % (15.5-49.0); Mean Cell Volume 109.1 fL (80.0-100.0); Mean Corpuscular HGB Conc 33.6 g/dL (31.0-36.0); Mean Corpuscular Hemoglobin 36.6 pg (26.0-34.0); Monocytes # (Auto) 2.3 K/mcL (0.1-0.9); Monocytes % (Auto) 16.7 % (1.0-12.0); Platelet Count 92 K/mcL (140-440); RBC 3.17 M/mcL (4.50-5.90); Red Cell Distribution Width 15.3 % (11.5-14.5)
[2017-10-16 05:51] LABS: ALT/SGPT 46 U/l (0-40); Albumin 2.7 gm/dL (3.2-5.2); Albumin/Globulin Ratio 1.3 (1.0-2.3); Alkaline Phosphatase 111 U/L (39-117); Bilirubin,Direct 2.1 mg/dL (0.0-0.3); Blood Urea Nitrogen 12 mg/dl (6-20); Gamma Glutamyl Transpeptidase 89 U/L (8-61); Magnesium 1.9 mg/dL (1.6-2.5); Uric Acid 3.5 mg/dL (2.5-8.0)
[2017-10-16] MEDS: PANTOPRAZOLE 40 MG VIAL IV SCH (07:47)
[2017-10-16] MEDS: FUROSEMIDE 20 MG TABLET PO SCH (08:19)
[2017-10-16] MEDS: MULTIVIT,THER IRON,CA,FA & MIN 1 TABLET PO SCH (08:19)
[2017-10-16] MEDS: FOLIC ACID 1 MG TABLET PO SCH (08:19)
[2017-10-16] MEDS: CIPROFLOXACIN 400 MG/200 ML BAG IV SCH ×2 (08:43→20:34)
[2017-10-16] MEDS ORDERED: FUROSEMIDE 40 MG TABLET PO SCH (09:00)
[2017-10-16] MEDS: Budesonide/Formoterol Fumarate [Symbicort] 80-4.5 mcg Inhaler INH SCH ×3 (09:00→22:42)
[2017-10-16] MEDS: HEPARIN 5,000 UNIT/ML VIAL SQ SCH ×2 (09:01→20:34)
[2017-10-16] MEDS: THIAMINE 100 MG/ML VIAL IM SCH (09:01)
[2017-10-16] MEDS ORDERED: ALBUMIN HUMAN IV ONE (09:12)
--- NOTE | 2017-10-16 09:28 | Internal Medicine Consult Note ---
Medical - CN: HPI - Data of Consult Patient: new to practice Consult date: 10/16/17 Requesting Physician: Betzaida Garcia Primary Care Provider: Vitaliy Chen - Consult Narrative Reason for consult: Ascites History of present illness: Mr. Bolaños is a 62 year old M with a long history of ETOH/treatment-naive HCV cirrhosis, believed to be acquired after unregulated tattoo in 1982, who presented to ER 10/14 with a 4-6 week history of abdominal distention and mental status changes following microdiskectomy and was discovered to have ascites and sepsis. He has not previously undergone GI evaluation. He drinks alcohol daily, but has cut back to 2-3 beers a day and 2 mixed drinks nightly. He is not sure if he will be able to stop drinking while also attempting tobacco cessation. Extrahepatic manifestations of HCV include chronic arthralgias of hips and back. He is on chronic narcotics. He has gained 30lbs above baseline. Upon admission, paracentesis of 2.6L of turbid fluid was drawn and he was started on empiric treatment with cipro IV BID for SBP. Fluid analysis was inconsistent with SBP however and there has been no growth on culture to date. Today, he continues to have abdominal pain and appears lethargic. He is afebrile. He has been given ativan for CIWA protocol as well as roxicodone for chronic pain. Schaefer was placed at admission for urinary retention, but patient believes he was unable to void due to an audience of healthcare providers. 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 Smoker. 4+ alcoholic beverages daily. Marijuana occasionally. No IVDA. Smoking status: Current every day smoker Have you smoked in the last 12 months: Yes Drug use: marijuana Alcohol use: heavy history: [place] Medical - CN: Meds Home Medications Medication Instructions Recorded Confirmed Type Valsartan [Diovan] 80 mg PO DAILY 07/12/17 10/14/17 History budesonide-formoterol HFA 80 2 puff INHALATION BID 08/12/17 10/14/17 History mcg-4.5 mcg/actuation aerosol inhaler Symbicort 80-4.5 Mcg Inhaler 1 puff PO BID 10/14/17 10/14/17 History oxyCODONE HCL [Oxycodone HCl] 5 mg PO Q4HP PRN 10/14/17 10/14/17 History Allergies Allergy/AdvReac Type Severity Reaction Status Date / Time No Known Drug Allergies Allergy Verified 10/14/17 10:29 Medical - CN: Exam - Constitutional Vitals: Temp Pulse Resp BP Pulse Ox 99.3 F H 78 14 134/72 94 10/16/17 07:00 10/16/17 07:31 10/16/17 07:31 10/16/17 07:00 10/16/17 07:31 General appearance: average body habitus Exam: jaundiced - Head Head exam: Present: atraumatic - Neck Neck exam: Absent: lymphadenopathy, thyromegaly - Respiratory Respiratory exam: Present: decreased breath sounds, wheezes Additional comments: crackles right base - Cardiovascular Cardiovascular exam: Present: normal rate and rhythm Additional comments: mild dependent edema - GI/Abdominal GI/Abdominal exam: Present: normal bowel sounds, distended Additional comments: tense ascites, tender - Expanded GI/Abdominal Exam GI/Abdominal exam: Present: ascites - Neurological Exam Additional comments: no asterixis. lethargic consistent with mild encephalopathy Medical - CN: Result - Labs CBC & Chem 7: 10/16/17 04:00 10/16/17 04:00 Labs: Short CBC 10/16/17 Range/Units 04:00 WBC 13.9 H (4.5-11.0) K/mcL Hgb 11.6 L (13.5-16.5) g/dL Hct 34.6 L (41.0-55.0) % Plt Count 92 L (140-440) K/mcL BMP 10/16/17 04:00 Sodium 138 Potassium 4.1 Chloride 105 Carbon Dioxide 23 BUN 12 Creatinine 0.7 Glucose 82 Calcium 7.7 L Liver Function 10/16/17 Range/Units 04:00 Total Bilirubin 4.1 H (0.0-1.0) mg/dL Direct Bilirubin 2.1 H (0.0-0.3) mg/dL GGT 89 H (8-61) U/L AST 90 H (0-37) U/l ALT 46 H (0-40) U/l Alkaline Phosphatase 111 (39-117) U/L Albumin 2.7 L (3.2-5.2) gm/dL Medical - CN: A/P (1) Ascites due to alcoholic cirrhosis Status: Acute Assessment and plan: Child's class C cirrhotic. Discussed the importance of abstinence from alcohol. Cautioned patient that alcoholic cirrhotics often have a decompensation in the liver function for several weeks following abstinence and careful followup will be required. Will continue to follow during hospital admission with hospitalist. His fluid analysis showed neutrophils 13 with moderate polys and total cell count 100. No growth on cx today. Patient does not meet criteria of SBP, but is at high risk for developing SBP so it would be reasonable to continue CIPRO for at least 5 days. Should be started on SBP prophylaxis at discharge. SAAG 2.3 consistent with portal hypertension. Will aggressively diuresis patient , changing from aldactone to amiloride to minimize gynecomastia complaints, and increasing furosemide and administering IV albumin. Repeat paracentesis with repeat fluid analysis. Remove schaefer due to risk of infection. Plan for EGD as outpatient for variceal screening. Avoid beta blockers. (2) Hepatitis C Status: Acute Assessment and plan: Ordered HBV and HIV serologies to check for coinfection. ORdered HCV ab, genotype and PCR RNA. Briefly discussed possibility of treatment once acute issues improve. Patient concerned about cost but treatment typically [facility]. Also checked serologies for autoimmune hepatitis and Alpha 1 antitrypsin in light of patient's COPD. (3) Encephalopathy Status: Acute Assessment and plan: Discussed with Dr. Talbert. Patient is quite lethargic. Will DC CiWA protocol as encephalopathics unlikely to suffer DTs. Ammonia ordered. Consider adding lactulose and/or Xifaxan. (4) Liver mass, left lobe Status: Acute Assessment and plan: AFP 80. Would advocate for avoiding biopsy at this time. Will follow radiologically. 1 hour spent on consult
[2017-10-16] MEDS ORDERED: ALBUMIN HUMAN 25 GM/100 ML BAG IV ONE (10:00)
[2017-10-16] MEDS: NICOTINE 7 MG PATCH TOPICAL SCH (10:08)
--- NOTE | 2017-10-16 11:00 | Internal Med Progress Note ---
Medical - PN: Subj Patient information: Note initiated : 10/16/17 at 11:00 am Patient: Neal Bolaños 62 y/o M admitted on 10/14/17 for AFib, Sepsis, Spontaneous Bacterial Peritonitis. Interval history: October 14, 2017: History of present illness: Mr. Bolaños is a 62 year old with a past history of alcohol and tobacco abuse and hepatitis C. He also has chronic back pain, and underwent back surgery for what sounds like a discectomy about 2-1/2 weeks ago. When he saw his surgeon in follow-up, he complained that his abdomen was getting more and more distended , and that he was having abdominal pain that was radiating into his back. His surgeon strongly recommended that he see his PCP today, which he did. He was then referred to the emergency room for further evaluation. The patient had somewhat altered mental status on arrival. He was also found to be in A. fib with a rate of 170. Extremities were a bit mottled. Paracentesis was performed and showed turbid fluid, consistent with probable spontaneous bacterial peritonitis, cirrhosis with ascites. Elevated lactic acid was consistent with sepsis. The patient is now admitted for further workup and management. He and his deny that he has had recent fever or chills. He believes he has had abdominal swelling for about 1 month now. He was told of hepatitis C 10 years or so ago and told that he had liver damage, but does not have any follow-up for his liver health. He denies headaches or dizziness new eye or ear changes, sore throat or cough. He describes lower sternal chest pain in addition to epigastric pain today, which seems to be radiating towards his back between his shoulder blades. He has had increased shortness of breath since yesterday and worse today. He denies diaphoresis. He says he did vomit once in the emergency room today, and that was just clear fluid. He has diffuse abdominal pain. The pain did seem to improve after they took off about a liter of fluid in the emergency room. He denies palpitations, orthopnea, hematemesis, nausea. He does say that he is been struggling with some constipation which he blames on his pain medications. He denies dysuria. October 15: The patient thinks she is feeling a bit better today. However he still having moderate abdominal discomfort related to abdominal distention. Unfortunately, he appears to have gained about 5 pounds since admission. He denies fever chills, chest pain or palpitations. He does not have shortness of breath, but notes his abdomen seems to create a lot of pressure in his chest area as well. He had declined Chamberlain catheter last night, but had great difficulty emptying his bladder, so Chamberlain catheter was placed. He is continuing to have significant mid back pain. He says he thinks oral oxycodone works better for him than IV morphine. He is concerned that he may have constipation. He was up with physical therapy today, and continues to need moderate assistance for all mobility. Occupational Therapy also notes the patient has decreased cognition and coordination. He is requiring 5 L of oxygen to keep his O2 saturations above 90%. October 16: Today, the patient notes he is still having significant flank pain and still feels quite weak. Otherwise he thinks overall he is improved. He is having a little bit less pressure in his lower chest upper epigastric area. He denies fever chills, chest pain or palpitations significant shortness of breath, nausea or vomiting, diarrhea or constipation. He was seen by GI this morning, and they agree with IV albumin and paracentesis. They have also ordered some other studies to follow-up on his history of hepatitis C, and changed his diuretics around a little bit. Patient did have a low-grade fever this morning. Cultures so far have been negative. Peritoneal fluid will be recultured today. - Constitutional Vitals: Vital Signs Temp Pulse Resp BP Pulse Ox 98.6 F 78 14 141/75 97 10/16/17 09:03 10/16/17 07:31 10/16/17 10:01 10/16/17 10:01 10/16/17 10:01 Period Temp Pulse Resp BP Sys/[place] Pulse Ox Last 24 Hr 98.6 F-99.7 F 73-95 8-22 116-154/65-90 88-99 Intake and Output 10/15/17 10/16/17 10/16/17 21:59 05:59 13:59 Intake Total 1315 / 1315 1000 / 1000 620 / 620 Output Total 1400 / 1400 640 / 640 370 / 370 Balance -85 / -85 360 / 360 250 / 250 Weight 192 lb Intake & Output: Intake & Output 10/15/17 10/16/17 10/16/17 21:59 05:59 13:59 Intake Total 1315 / 1315 1000 / 1000 620 / 620 Output Total 1400 / 1400 640 / 640 370 / 370 Balance -85 / -85 360 / 360 250 / 250 Weight 192 lb Intake: IV 1195 / 1195 250 / 250 50 / 50 Zosyn 3.375 gm In Dextrose 5% 50 / 50 50 / 50 50 / 50 in Water 50 ml @ 100 mls/hr IV Q6H [facility] Rx#:[id number] Oral 120 / 120 750 / 750 570 / 570 Output: Urine Catheter Amount 1400 / 1400 640 / 640 370 / 370 Other: Meal Dinner Breakfast Percent of Meal Consumed 10% 100% He is awake, but still seems to mentate a bit slowly. He is sitting up in a chair and just a good breakfast. O2 saturations tend to drift down into the upper 80s when he is not on oxygen. . Neck is supple without obvious JVD. Cardiac exam shows regular rate and rhythm. Lungs have decreased breath sounds at the bases, but are otherwise clear. Abdomen is quite protuberant and distended. Abdomen is tender. Extremities show 2-3+ pitting edema. Neurologic exam: Patient is somewhat groggy. It is unclear if this is related to his disease or to his medications, or possibly due to hepatic encephalopathy.. Medical - PN: Obj Da - Labs CBC & Chem 7: 10/16/17 04:00 10/16/17 04:00 Labs: Abnormal Lab Results 10/16/17 10/16/17 10/15/17 04:00 04:00 04:10 WBC 13.9 H RBC 3.17 L Hgb 11.6 L Hct 34.6 L MCV 109.1 H MCH 36.6 H RDW 15.3 H Plt Count 92 L MPV 12.1 H [place] % (Auto) 16.7 H Eos % (Auto) 8.9 H [place] # (Auto) 2.3 H Eos # (Auto) 1.2 H PT INR VBG Lactic Acid Carbon Dioxide POC Total CO2 Anion Gap Calcium 7.7 L POC WB Ioniz Calcium Total Bilirubin 4.1 H Direct Bilirubin 2.1 H GGT 89 H AST 90 H ALT 46 H Alkaline Phosphatase Lactate Dehydrogenase 262 H Troponin T NT-Pro-B Natriuret Pep Total Protein 4.8 L Albumin 2.7 L Globulin 2.1 L Alpha Fetoprotein 80.4 H Urine Opiates Screen 10/15/17 10/15/17 10/14/17 04:10 04:10 20:35 WBC 11.4 H RBC 3.11 L Hgb 11.3 L Hct 33.9 L MCV 109.0 H MCH 36.4 H RDW 15.4 H Plt Count 88 L MPV 11.7 H [place] % (Auto) 15.2 H Eos % (Auto) 7.4 H [place] # (Auto) 1.7 H Eos # (Auto) 0.8 H PT INR VBG Lactic Acid Carbon Dioxide POC Total CO2 Anion Gap Calcium 7.6 L POC WB Ioniz Calcium Total Bilirubin 3.9 H Direct Bilirubin 2.2 H GGT 85 H AST 90 H ALT 47 H Alkaline Phosphatase 119 H Lactate Dehydrogenase 265 H Troponin T NT-Pro-B Natriuret Pep Total Protein 5.1 L Albumin 2.8 L Globulin Alpha Fetoprotein Urine Opiates Screen Suspect positive A 10/14/17 10/14/17 10/14/17 19:55 19:55 15:15 WBC RBC Hgb Hct MCV MCH RDW Plt Count MPV [place] % (Auto) Eos % (Auto) [place] # (Auto) Eos # (Auto) PT INR VBG Lactic Acid 2.6 H 3.4 H Carbon Dioxide POC Total CO2 Anion Gap Calcium POC WB Ioniz Calcium Total Bilirubin Direct Bilirubin GGT AST ALT Alkaline Phosphatase Lactate Dehydrogenase Troponin T NT-Pro-B Natriuret Pep 632.1 H Total Protein Albumin Globulin Alpha Fetoprotein Urine Opiates Screen 10/14/17 10/14/17 10/14/17 14:30 12:24 11:08 WBC RBC Hgb Hct MCV MCH RDW Plt Count MPV [place] % (Auto) Eos % (Auto) [place] # (Auto) Eos # (Auto) PT 16.7 H INR 1.3 H VBG Lactic Acid Carbon Dioxide 18 L POC Total CO2 21 L Anion Gap 20.0 H Calcium 8.1 L POC WB Ioniz Calcium 1.02 L Total Bilirubin 2.8 H Direct Bilirubin GGT AST 119 H ALT 65 H Alkaline Phosphatase 218 H Lactate Dehydrogenase Troponin T 0.04 H* NT-Pro-B Natriuret Pep Total Protein Albumin 3.1 L Globulin Alpha Fetoprotein Urine Opiates Screen 10/14/17 10/14/17 10:57 10:29 WBC 12.4 H RBC 3.72 L Hgb Hct 40.0 L MCV 107.4 H MCH 36.6 H RDW 14.8 H Plt Count 101 L MPV 12.8 H [place] % (Auto) 15.1 H Eos % (Auto) [place] # (Auto) 1.9 H Eos # (Auto) PT INR VBG Lactic Acid 5.3 H* Carbon Dioxide POC Total CO2 Anion Gap Calcium POC WB Ioniz Calcium Total Bilirubin Direct Bilirubin GGT AST ALT Alkaline Phosphatase Lactate Dehydrogenase Troponin T NT-Pro-B Natriuret Pep Total Protein Albumin Globulin Alpha Fetoprotein Urine Opiates Screen October 16 Peritoneal fluid: Gram stain: Many polys, no organisms seen. October 15: Alpha-fetoprotein is elevated at 80 Peritoneal fluid analysis: 13% neutrophils, 21% lymphocytes, 57 macrophages. Total protein 0.8, albumin 0.4, LDH 49, glucose 110, amylase 26, lipase 21 Echocardiogram: Shows normal left ventricular systolic function with ejection fraction 55%. No wall motion abnormalities. No valvular abnormalities. October 14: Nasal MRSA screen was negative. Lactic acid #1: 5.3; lactic acid #2: 3.4 Peritoneal fluid Gram stain: Shows moderate polys, mononuclear cells, many red blood cells, no organisms. EKG at 10:13 AM: Shows A. fib with a rate of 170, with nonspecific ST-T changes. EKG at 2:39 PM: Shows probable sinus rhythm, although P waves not well visualized. Next CT of the abdomen: IMPRESSION: 1. Moderate cirrhotic changes progressing rapidly over the past two months. There is moderate ascites throughout the abdomen and pelvis. No definite evidence of portal hypertension. 2. 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 It also represent an adenoma, focal nodular hyperplasia, teratoma or even hepatocellular carcinoma. Please correlate with alpha-fetoprotein and suggest ultrasound-guided biopsy 3. Subsegmental atelectasis both lower lobes and tiny bilateral pleural effusions. 4. 16 mm low-attenuation lesion posterior cortex inferior right kidney. Suggest renal ultrasound to determine whether it is a cyst or solid lesion 5. Splenectomy changes Chest x-ray: Shows mild cardiomegaly, mild pulmonary vascular congestion consistent with mild CHF. Small right pleural effusion. Meds: Medications Albuterol Sulfate (Ventolin) 2.5 mg NEB Q4HRT PRN PRN Reason: Shortness Of Breath Or Wheezing Amiloride HCl (Amiloride) 20 mg PO BID [facility] Clonidine HCl (Catapres) 0.1 mg PO Q4HP PRN PRN Reason: Alcohol Withdrawal Last Admin: 10/15/17 21:13 Dose: 0.1 mg Docusate Sodium (Colace) 100 mg PO BID PRN PRN Reason: Constipation Last Admin: 10/15/17 21:13 Dose: 100 mg Folic Acid (Folic Acid) 1 mg PO DAILY [facility] Last Admin: 10/16/17 08:19 Dose: 1 mg Furosemide (Lasix) 40 mg PO DAILY [facility] Last Admin: 10/16/17 10:07 Dose: 40 mg Heparin Sodium (Porcine) (Heparin) 5,000 unit SQ Q12 [facility] Last Admin: 10/16/17 09:01 Dose: 5,000 unit Ciprofloxacin (Cipro) 400 mg in 200 mls @ 200 mls/hr IV BID [facility] Last Admin: 10/16/17 08:43 Dose: 200 mls/hr Piperacillin Sod/Tazobactam (Sod 3.375 gm/ Dextrose) 50 mls @ 100 mls/hr IV Q6H [facility] Last Infusion: 10/16/17 06:00 Dose: Infused Diltiazem HCl 125 mg/ Dextrose 125 mls @ 5 mls/hr IV Q12HP PRN; Protocol; 5 MG/ HR PRN Reason: Tachyarrhythmias Albumin Human (Buminate) 100 gm in 400 mls @ 133.333 mls/hr IV ONCE ONE Stop: 10/16/17 12:11 Last Admin: 10/16/17 10:20 Dose: 133.333 mls/hr Iron Carb/Multivit/Line Clearance Foreman/Folic Acid (Multivitamin W/Minerals) 1 tab PO DAILY [facility] Last Admin: 10/16/17 08:19 Dose: 1 tab Lorazepam (Ativan) 0 mg IV Q4HP PRN; Protocol PRN Reason: Alcohol Withdrawal Last Admin: 10/16/17 00:00 Dose: 1 mg Magnesium Hydroxide (Milk Of Magnesia) 30 ml PO DAILYP PRN PRN Reason: Constipation Last Admin: 10/15/17 11:24 Dose: 30 ml Morphine Sulfate (Morphine) 4 mg IV Q2HP PRN PRN Reason: PAIN LEVEL > 6 Last Admin: 10/15/17 01:29 Dose: 4 mg Naloxone HCl (Narcan) 0.1 mg IV Q2MIN PRN PRN Reason: Opiate Reversal Nicotine (Nicoderm) 7 mg TOPICAL DAILY@1000 [facility] Last Admin: 10/16/17 10:08 Dose: 7 mg Ondansetron HCl (Zofran) 4 mg IV Q4-6HP PRN PRN Reason: Nausea And Vomiting Oxycodone HCl (Roxicodone) 5 mg PO Q4HP PRN PRN Reason: Pain Last Admin: 10/16/17 07:58 Dose: 5 mg Pantoprazole Sodium (Protonix) 40 mg IV QAMAC [facility] Last Admin: 10/16/17 07:47 Dose: 40 mg Budesonide/Formoterol Fumarate [Symbicort] 80-4.5 Mcg Inhaler 2 dose INH BID [facility] Last Admin: 10/16/17 09:00 Dose: 2 dose Sodium Chloride (Saline Flush) 10 ml IV Q8 [facility] Last Admin: 10/16/17 07:48 Dose: 10 ml Thiamine HCl (Vitamin B1) 100 mg IM DAILY [facility] Last Admin: 10/16/17 09:01 Dose: 100 mg Medical - PN: A/P - Time Spent With Patient Total time spent is greater than 50% in coordination of care (as documented) at patient's floor/unit and/or counseling patient: Greater than 35 minutes (1) Elevated troponin Status: Acute Current Visit: No (2) CHF (congestive heart failure) Status: Acute Current Visit: No (3) Atrial fibrillation Status: Acute Current Visit: No (4) Cirrhosis of liver with ascites Status: Acute Current Visit: No (5) Lactic acid acidosis Status: Acute Current Visit: No (6) SBP (spontaneous bacterial peritonitis) Status: Acute Current Visit: No (7) Sepsis Status: Acute Current Visit: No - Narrative A/P Narrative: #1. Infectious disease/sepsis. Patient presents appearing very ill, with leukocytosis, tachycardia, lactic acidosis. Peritoneal fluid analysis is consistent with likely spontaneous bacterial peritonitis. -Patient was given IV fluids in the ER, and lactic acid is trending down. We will need to be cautious with this, as he appears to have both ascites and CHF. -GI consult .. -Empiric antibiotic coverage with Zosyn and ciprofloxacin. White blood cell count is a bit higher today, for uncertain reasons. Per GI, he may need empiric SBP prophylaxis as an outpatient. -Repeat blood and peritoneal fluid cultures are pending. #2. Cardiac. Patient presents with dyspnea, and atrial fibrillation with rapid ventricular response, apparently of new onset. Atrial fibrillation resolved. Echocardiogram does not indicate any significant abnormalities. A. fib was likely due to acute illness. -Troponin bumped slightly on admission, but is back to normal .. 3. CODE STATUS: Full code. Patient would not want long-term life support. His will act as his POA. 4. DVT prophylaxis: Use low-dose subcu heparin for now, to keep an eye on his platelets, which are borderline low. 5. History of alcohol abuse. Monitor with CIWA protocol. GI suggested if patient has encephalopathy he is at lower risk for alcohol withdrawal, but patient's ammonia level is normal. We will continue to monitor. 6. Tobacco abuse. -NicoDerm patch. 7. GI. Patient presents with apparent alcoholic liver cirrhosis, with associated ascites, which apparently has been getting quite a bit worse lately. CT scan also shows a liver mass, which could be benign, but may also be malignant. - Alpha-fetoprotein level is elevated, which is worrisome. GI recommends following radiologically. -Peptic ulcer disease prophylaxis with Protonix. -He will likely need to be discharged on a combination of Lasix and spironolactone or amiloride to help manage his ascites. Patient had repeat paracentesis and IV albumin today. -Patient has reported history of hepatitis C. Serologies were ordered by GI today. Remove Chamberlain catheter to decrease risk of infection. 8. Renal. Patient also has a tiny lesion in the right kidney, which might require ultrasound to follow-up further to see if it is a cyst. 9. 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 --be sure he is up-to-date on flu vaccine and Pneumovax. 10. Chronic pain. He apparently has chronic disc issues. Patient requested switching IV morphine back to oral oxycodone , so that was done. Disposition: The patient's mentions they might be considering moving to the [facility] so that he can be connected with the [facility] for his care. Approximately 35 minutes was spent today, reviewing patient's test results, interviewing and examining him, reviewing plan of care with the patient , as well as staff, and reviewing the case with Dr. Antonio and Felecia Aguilar of GI. Medical - PN: Qual - VTE Deep Vein Thrombosis/Pulmonary Embolism Present on Admission: No
[2017-10-16] MEDS: ALBUMIN HUMAN 25 GM/100 ML BAG IV SCH ×3 (12:29→14:42)
[2017-10-16] MEDS ORDERED: LIDOCAINE 1% 20 ML VIAL SQ ONE (13:27)
--- NOTE | 2017-10-16 14:05 | Ultrasound Report ---
Ultrasound-guided paracentesis CLINICAL INFORMATION: Ascites TECHNIQUE: Procedure and risks including possibility of bleeding, infection, and bowel perforation were explained to the patient. They understood and wished to proceed. With the patient in supine position, the fluid was first sonographically localized over the right flank the skin overlying this region was marked, prepped and locally anesthetized with 1% lidocaine using a 25-gauge needle to the level the parietal peritoneum. An 18-gauge Yueh needle was then advanced under sonographic guidance into the ascites and approximately 1.4 L of simple appearing ascites was aspirated. Post procedure scanning shows only minimal residual fluid. Patient tolerated procedure well without apparent complication. IMPRESSION: Successful paracentesis yielding 1.4 L of simple appearing ascites. No apparent complication Interpreted and Authenticated by: Cristian Ozuna 10/16/17
[2017-10-16 14:08] LABS: Neutrophils,Peritoneal Fluid 33 %; Nucleated Cel,Peritoneal Fluid 148 /cumm; RBC,Peritoneal Fluid < 50000 /cumm
[2017-10-16] MEDS ORDERED: ALBUTEROL SULFATE 2.5 MG/3 ML NEBULIZER NEB PRN (15:51)
[2017-10-16] MEDS ORDERED: NALOXONE HCL 0.4 MG/ML VIAL IV PRN (15:51)
[2017-10-16] MEDS ORDERED: cloNIDine HCL 0.1 MG TABLET PO PRN (15:51)
[2017-10-16] MEDS ORDERED: LORazepam 2 MG/ML VIAL IV PRN (15:51)
[2017-10-16] MEDS ORDERED: DOCUSATE SODIUM 100 MG CAPSULE PO PRN (15:51)
[2017-10-16] MEDS ORDERED: ONDANSETRON 4 MG/2 ML VIAL IV PRN (15:51)
[2017-10-16] MEDS ORDERED: MAGNESIUM HYDROXIDE 30 ML ORAL.SUSP PO PRN (15:51)
[2017-10-16] MEDS ORDERED: ACETAMINOPHEN 500 MG TABLET PO PRN (20:19)
[2017-10-16] MEDS ORDERED: ACETAMINOPHEN 500 MG TABLET PO ONE (20:31)
[2017-10-16] MEDS: aMILoride 5 MG TABLET PO SCH (20:35)
[2017-10-16] MEDS ORDERED: aMILoride 5 MG TABLET PO SCH (21:00)
[2017-10-17] MEDS: oxyCODONE HCL 5 MG TABLET PO PRN ×5 (02:48→22:46)
[2017-10-17 05:14] LABS: ALT/SGPT 36 U/l (0-40); Albumin 3.4 gm/dL (3.2-5.2); Albumin/Globulin Ratio 1.9 (1.0-2.3); Alkaline Phosphatase 82 U/L (39-117); Basophils # (Auto) 0.1 K/mcL (0.0-0.3); Basophils % (Auto) 0.5 % (0.0-2.0); Bilirubin,Direct 2.1 mg/dL (0.0-0.3); Blood Urea Nitrogen 12 mg/dl (6-20); Eosinophils # (Auto) 0.9 K/mcL (0.0-0.7); Eosinophils % (Auto) 6.5 % (0.0-7.0); Gamma Glutamyl Transpeptidase 68 U/L (8-61); Granulocytes % (Auto) 51.2 % (38.0-78.0); Lymphocytes # (Auto) 3.5 K/mcL (1.5-4.8); Lymphocytes % (Auto) 24.8 % (15.5-49.0); Magnesium 1.8 mg/dL (1.6-2.5); Mean Cell Volume 108.8 fL (80.0-100.0); Mean Corpuscular HGB Conc 33.8 g/dL (31.0-36.0); Mean Corpuscular Hemoglobin 36.8 pg (26.0-34.0); Monocytes # (Auto) 2.4 K/mcL (0.1-0.9); Platelet Count 84 K/mcL (140-440); RBC 2.97 M/mcL (4.50-5.90); Red Cell Distribution Width 14.9 % (11.5-14.5); Uric Acid 3.7 mg/dL (2.5-8.0)
[2017-10-17] MEDS: PIPERACILLIN SODIUM/TAZOBACTAM 3.375 GM in DEXTROSE 5% IN WATER 50 ML IV SCH ×3 (05:40→17:45)
[2017-10-17 05:52] LABS: Hepatitis B Surface Antigen NEGATIVE (NEGATIVE)
[2017-10-17 06:30] LABS: Hepatitis C Virus Antibody REACTIVE (NEGATIVE)
[2017-10-17] MEDS: 0.9 % SODIUM CHLORIDE 10 ML SYRINGE IV SCH ×6 (06:30→22:46)
[2017-10-17] MEDS: PANTOPRAZOLE 40 MG VIAL IV SCH (06:55)
[2017-10-17] MEDS: HEPARIN 5,000 UNIT/ML VIAL SQ SCH ×2 (09:03→20:30)
[2017-10-17] MEDS: FOLIC ACID 1 MG TABLET PO SCH (09:03)
[2017-10-17] MEDS: FUROSEMIDE 40 MG TABLET PO SCH (09:07)
[2017-10-17] MEDS: Budesonide/Formoterol Fumarate [Symbicort] 80-4.5 mcg Inhaler INH SCH ×2 (09:08→20:30)
[2017-10-17] MEDS: MULTIVIT,THER IRON,CA,FA & MIN 1 TABLET PO SCH (09:08)
[2017-10-17] MEDS: aMILoride 5 MG TABLET PO SCH ×2 (09:08→20:29)
[2017-10-17] MEDS: THIAMINE 100 MG/ML VIAL IM SCH (09:08)
[2017-10-17] MEDS: CIPROFLOXACIN 400 MG/200 ML BAG IV SCH (09:09)
--- NOTE | 2017-10-17 10:18 | XRay Report ---
CLINICAL INFORMATION: Fever COMPARISON: 10/14/2017 FINDINGS: Heart size, mediastinum and pulmonary vessels are normal. Moderate sized infiltrate has developed in the right upper lobe with a possible small infiltrate developing in the left upper lobe. No definite effusion IMPRESSION: Moderate right upper lobe infiltrate with probable small infiltrate developing in the left upper lobe. Interpreted and Authenticated by: Cristian Ozuna 10/17/17
[2017-10-17] MEDS: NICOTINE 7 MG PATCH TOPICAL SCH (11:05)
[2017-10-17] MEDS: LORazepam 2 MG/ML VIAL IV PRN ×2 (11:47→22:50)
--- NOTE | 2017-10-17 11:57 | Internal Med Progress Note ---
Medical - PN: Subj Patient information: Note initiated : 10/17/17 at 11:57 am Service Date, if different from initiated Date: [] Patient: Neal Bolaños 62 y/o M admitted on 10/14/17 for AFib, Sepsis, Spontaneous Bacterial Peritonitis. Chief Complaint: [] Interval history: October 14, 2017: History of present illness: Mr. Bolaños is a 62 year old with a past history of alcohol and tobacco abuse and hepatitis C. He also has chronic back pain, and underwent back surgery for what sounds like a discectomy about 2-1/2 weeks ago. When he saw his surgeon in follow-up, he complained that his abdomen was getting more and more distended , and that he was having abdominal pain that was radiating into his back. His surgeon strongly recommended that he see his PCP today, which he did. He was then referred to the emergency room for further evaluation. The patient had somewhat altered mental status on arrival. He was also found to be in A. fib with a rate of 170. Extremities were a bit mottled. Paracentesis was performed and showed turbid fluid, consistent with probable spontaneous bacterial peritonitis, cirrhosis with ascites. Elevated lactic acid was consistent with sepsis. The patient is now admitted for further workup and management. He and his deny that he has had recent fever or chills. He believes he has had abdominal swelling for about 1 month now. He was told of hepatitis C 10 years or so ago and told that he had liver damage, but does not have any follow-up for his liver health. He denies headaches or dizziness new eye or ear changes, sore throat or cough. He describes lower sternal chest pain in addition to epigastric pain today, which seems to be radiating towards his back between his shoulder blades. He has had increased shortness of breath since yesterday and worse today. He denies diaphoresis. He says he did vomit once in the emergency room today, and that was just clear fluid. He has diffuse abdominal pain. The pain did seem to improve after they took off about a liter of fluid in the emergency room. He denies palpitations, orthopnea, hematemesis, nausea. He does say that he is been struggling with some constipation which he blames on his pain medications. He denies dysuria. October 15: The patient thinks she is feeling a bit better today. However he still having moderate abdominal discomfort related to abdominal distention. Unfortunately, he appears to have gained about 5 pounds since admission. He denies fever chills, chest pain or palpitations. He does not have shortness of breath, but notes his abdomen seems to create a lot of pressure in his chest area as well. He had declined Chamberlain catheter last night, but had great difficulty emptying his bladder, so Chamberlain catheter was placed. He is continuing to have significant mid back pain. He says he thinks oral oxycodone works better for him than IV morphine. He is concerned that he may have constipation. He was up with physical therapy today, and continues to need moderate assistance for all mobility. Occupational Therapy also notes the patient has decreased cognition and coordination. He is requiring 5 L of oxygen to keep his O2 saturations above 90%. October 16: Today, the patient notes he is still having significant flank pain and still feels quite weak. Otherwise he thinks overall he is improved. He is having a little bit less pressure in his lower chest upper epigastric area. He denies fever chills, chest pain or palpitations significant shortness of breath, nausea or vomiting, diarrhea or constipation. He was seen by GI this morning, and they agree with IV albumin and paracentesis. They have also ordered some other studies to follow-up on his history of hepatitis C, and changed his diuretics around a little bit. Patient did have a low-grade fever this morning. Cultures so far have been negative. Peritoneal fluid will be recultured today. October 17: Today, the patient continues to complain of low back pain, and frequently requests oxycodone. He was more sedated and confused this morning, but became more alert as the day wore on. He states he really did not sleep well, and notes he has chronic insomnia at home. I mentioned to him that alcohol tends to make that worse. He says overall he definitely feels better than when he was admitted. So far he is tolerating oral diuretics. Chamberlain catheter was removed this morning. He denies fever chills, chest pain or shortness of breath, nausea or vomiting or diarrhea. - Constitutional Vitals: Vital Signs Temp Pulse Resp BP Pulse Ox 99.2 F H 85 12 131/71 92 10/17/17 07:00 10/17/17 03:28 10/17/17 07:00 10/17/17 07:00 10/17/17 07:00 Period Temp Pulse Resp BP Sys/[place] Pulse Ox Last 24 Hr 98.9 F-100.3 F 85-106 12-20 127-153/59-117 92-98 Intake and Output 10/16/17 10/17/17 10/17/17 21:59 05:59 13:59 Intake Total 1100 / 1100 300 / 300 670 / 670 Output Total 2530 / 2530 1350 / 1350 1550 / 1550 Balance -1430 / -1430 -1050 / -1050 -880 / -880 Weight 182 lb 8 oz Intake & Output: Intake & Output 10/16/17 10/17/17 10/17/17 21:59 05:59 13:59 Intake Total 1100 / 1100 300 / 300 670 / 670 Output Total 2530 / 2530 1350 / 1350 1550 / 1550 Balance -1430 / -1430 -1050 / -1050 -880 / -880 Weight 182 lb 8 oz Intake: IV 450 / 450 50 / 50 250 / 250 Zosyn 3.375 gm In Dextrose 5% 50 / 50 50 / 50 50 / 50 in Water 50 ml @ 100 mls/hr IV Q6H [facility] Rx#:[id number] Oral 650 / 650 250 / 250 420 / 420 Output: Urine Catheter Amount 2530 / 2530 1350 / 1350 975 / 975 Void Amount 575 / 575 Other: Meal Dinner Breakfast Percent of Meal Consumed 100% 75% Feeding Ability Assist with Tray Set Up Independent # Bowel Movements 0 He is awake, but still seems to mentate a bit slowly. He is lying in bed with his eyes closed. Neck is supple without obvious JVD. Cardiac exam shows regular rate and rhythm. Lungs have decreased breath sounds at the bases, but are otherwise clear. Abdomen is quite protuberant and distended. Abdomen is less tender. Extremities show 2-3+ pitting edema. Neurologic exam: Patient is somewhat groggy. It is unclear if this is related to his disease or to his medications, or possibly due to hepatic encephalopathy.. Medical - PN: Obj Da - Labs CBC & Chem 7: 10/17/17 03:35 10/17/17 03:35 Labs: Abnormal Lab Results 12/01/0210/17/17 10/16/17 03:35 03:35 04:00 WBC 14.1 H 13.9 H RBC 2.97 L 3.17 L Hgb 10.9 L 11.6 L Hct 32.3 L 34.6 L MCV 108.8 H 109.1 H MCH 36.8 H 36.6 H RDW 14.9 H 15.3 H Plt Count 84 L 92 L MPV 11.9 H 12.1 H [place] % (Auto) 17.0 H 16.7 H Eos % (Auto) 8.9 H [place] # (Auto) 2.4 H 2.3 H Eos # (Auto) 0.9 H 1.2 H PT INR VBG Lactic Acid Carbon Dioxide Anion Gap Calcium 8.2 L Total Bilirubin 5.0 H Direct Bilirubin 2.1 H GGT 68 H AST 69 H ALT Alkaline Phosphatase Lactate Dehydrogenase Troponin T NT-Pro-B Natriuret Pep Total Protein 5.2 L Albumin Globulin 1.8 L Alpha Fetoprotein Urine Opiates Screen 10/16/17 10/15/17 10/15/17 04:00 04:10 04:10 WBC 11.4 H RBC 3.11 L Hgb 11.3 L Hct 33.9 L MCV 109.0 H MCH 36.4 H RDW 15.4 H Plt Count 88 L MPV 11.7 H [place] % (Auto) 15.2 H Eos % (Auto) 7.4 H [place] # (Auto) 1.7 H Eos # (Auto) 0.8 H PT INR VBG Lactic Acid Carbon Dioxide Anion Gap Calcium 7.7 L Total Bilirubin 4.1 H Direct Bilirubin 2.1 H GGT 89 H AST 90 H ALT 46 H Alkaline Phosphatase Lactate Dehydrogenase 262 H Troponin T NT-Pro-B Natriuret Pep Total Protein 4.8 L Albumin 2.7 L Globulin 2.1 L Alpha Fetoprotein 80.4 H Urine Opiates Screen 10/15/17 10/14/17 10/14/17 04:10 20:35 19:55 WBC RBC Hgb Hct MCV MCH RDW Plt Count MPV [place] % (Auto) Eos % (Auto) [place] # (Auto) Eos # (Auto) PT INR VBG Lactic Acid Carbon Dioxide Anion Gap Calcium 7.6 L Total Bilirubin 3.9 H Direct Bilirubin 2.2 H GGT 85 H AST 90 H ALT 47 H Alkaline Phosphatase 119 H Lactate Dehydrogenase 265 H Troponin T NT-Pro-B Natriuret Pep 632.1 H Total Protein 5.1 L Albumin 2.8 L Globulin Alpha Fetoprotein Urine Opiates Screen Suspect positive A 10/14/17 10/14/17 10/14/17 19:55 15:15 14:30 WBC RBC Hgb Hct MCV MCH RDW Plt Count MPV [place] % (Auto) Eos % (Auto) [place] # (Auto) Eos # (Auto) PT INR VBG Lactic Acid 2.6 H 3.4 H Carbon Dioxide Anion Gap Calcium Total Bilirubin Direct Bilirubin GGT AST ALT Alkaline Phosphatase Lactate Dehydrogenase Troponin T 0.04 H* NT-Pro-B Natriuret Pep Total Protein Albumin Globulin Alpha Fetoprotein Urine Opiates Screen 10/14/17 10/14/17 12:24 11:08 WBC RBC Hgb Hct MCV MCH RDW Plt Count MPV [place] % (Auto) Eos % (Auto) [place] # (Auto) Eos # (Auto) PT 16.7 H INR 1.3 H VBG Lactic Acid Carbon Dioxide 18 L Anion Gap 20.0 H Calcium 8.1 L Total Bilirubin 2.8 H Direct Bilirubin GGT AST 119 H ALT 65 H Alkaline Phosphatase 218 H Lactate Dehydrogenase Troponin T NT-Pro-B Natriuret Pep Total Protein Albumin 3.1 L Globulin Alpha Fetoprotein Urine Opiates Screen October 17: Urinalysis: Normal. Chest x-ray: IMPRESSION: Moderate right upper lobe infiltrate with probable small infiltrate developing in the left upper lobe. October 16 Peritoneal fluid: Gram stain: Many polys, no organisms seen. October 15: Alpha-fetoprotein is elevated at 80 Peritoneal fluid analysis: 13% neutrophils, 21% lymphocytes, 57 macrophages. Total protein 0.8, albumin 0.4, LDH 49, glucose 110, amylase 26, lipase 21 Echocardiogram: Shows normal left ventricular systolic function with ejection fraction 55%. No wall motion abnormalities. No valvular abnormalities. October 14: Nasal MRSA screen was negative. Lactic acid #1: 5.3; lactic acid #2: 3.4 Peritoneal fluid Gram stain: Shows moderate polys, mononuclear cells, many red blood cells, no organisms. EKG at 10:13 AM: Shows A. fib with a rate of 170, with nonspecific ST-T changes. EKG at 2:39 PM: Shows probable sinus rhythm, although P waves not well visualized. Next CT of the abdomen: IMPRESSION: 1. Moderate cirrhotic changes progressing rapidly over the past two months. There is moderate ascites throughout the abdomen and pelvis. No definite evidence of portal hypertension. 2. 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 It also represent an adenoma, focal nodular hyperplasia, teratoma or even hepatocellular carcinoma. Please correlate with alpha-fetoprotein and suggest ultrasound-guided biopsy 3. Subsegmental atelectasis both lower lobes and tiny bilateral pleural effusions. 4. 16 mm low-attenuation lesion posterior cortex inferior right kidney. Suggest renal ultrasound to determine whether it is a cyst or solid lesion 5. Splenectomy changes Chest x-ray: Shows mild cardiomegaly, mild pulmonary vascular congestion consistent with mild CHF. Small right pleural effusion. Meds: Medications Acetaminophen (Tylenol) 500 mg PO Q6HP PRN PRN Reason: PAIN/FEVER > 101 Last Admin: 10/16/17 20:35 Dose: 500 mg Albuterol Sulfate (Ventolin) 2.5 mg NEB Q4HRT PRN PRN Reason: Shortness Of Breath Or Wheezing Amiloride HCl (Amiloride) 20 mg PO BID [facility] Last Admin: 10/17/17 09:08 Dose: 20 mg Clonidine HCl (Catapres) 0.1 mg PO Q4HP PRN PRN Reason: Alcohol Withdrawal Docusate Sodium (Colace) 100 mg PO BID PRN PRN Reason: Constipation Last Admin: 10/16/17 20:34 Dose: 100 mg Folic Acid (Folic Acid) 1 mg PO DAILY [facility] Last Admin: 10/17/17 09:03 Dose: 1 mg Furosemide (Lasix) 40 mg PO DAILY [facility] Last Admin: 10/17/17 09:07 Dose: 40 mg Heparin Sodium (Porcine) (Heparin) 5,000 unit SQ Q12 [facility] Last Admin: 10/17/17 09:03 Dose: 5,000 unit Ciprofloxacin (Cipro) 400 mg in 200 mls @ 200 mls/hr IV BID [facility] Last Infusion: 10/17/17 11:15 Dose: Infused Piperacillin Sod/Tazobactam (Sod 3.375 gm/ Dextrose) 50 mls @ 100 mls/hr IV Q6H [facility] Last Admin: 10/17/17 11:51 Dose: 100 mls/hr Iron Carb/Multivit/Housekeeping Assistant/Folic Acid (Multivitamin W/Minerals) 1 tab PO DAILY [facility] Last Admin: 12/02/17 09:08 Dose: 1 tab Lorazepam (Ativan) 0 mg IV Q4HP PRN; Protocol PRN Reason: Alcohol Withdrawal Lorazepam (Ativan) 0.5 mg IV Q4HP PRN PRN Reason: ANXIETY/SEDATION Last Admin: 10/17/17 11:47 Dose: 0.5 mg Magnesium Hydroxide (Milk Of Magnesia) 30 ml PO DAILYP PRN PRN Reason: Constipation Last Admin: 10/17/17 04:59 Dose: 30 ml Morphine Sulfate (Morphine) 4 mg IV Q2HP PRN PRN Reason: PAIN LEVEL > 6 Naloxone HCl (Narcan) 0.1 mg IV Q2MIN PRN PRN Reason: Opiate Reversal Nicotine (Nicoderm) 7 mg TOPICAL DAILY@1000 [facility] Last Admin: 10/17/17 11:05 Dose: 7 mg Ondansetron HCl (Zofran) 4 mg IV Q4-6HP PRN PRN Reason: Nausea And Vomiting Oxycodone HCl (Roxicodone) 5 mg PO Q4HP PRN PRN Reason: Pain Last Admin: 10/17/17 09:06 Dose: 5 mg Pantoprazole Sodium (Protonix) 40 mg IV QAMAC [facility] Last Admin: 10/17/17 06:55 Dose: 40 mg Budesonide/Formoterol Fumarate [Symbicort] 80-4.5 Mcg Inhaler 2 dose INH BID [facility] Last Admin: 10/17/17 09:08 Dose: 2 dose Sodium Chloride (Saline Flush) 10 ml IV Q8 [facility] Last Admin: 10/17/17 11:50 Dose: 10 ml Thiamine HCl (Vitamin B1) 100 mg IM DAILY [facility] Last Admin: 10/17/17 09:08 Dose: 100 mg Medical - PN: A/P - Time Spent With Patient Total time spent is greater than 50% in coordination of care (as documented) at patient's floor/unit and/or counseling patient: 25 - 35 minutes (1) Elevated troponin Status: Acute Current Visit: No (2) CHF (congestive heart failure) Status: Acute Current Visit: No (3) Atrial fibrillation Status: Acute Current Visit: No (4) Cirrhosis of liver with ascites Status: Acute Current Visit: No (5) Lactic acid acidosis Status: Acute Current Visit: No (6) SBP (spontaneous bacterial peritonitis) Status: Acute Current Visit: No (7) Sepsis Status: Acute Current Visit: No - Narrative A/P Narrative: #1. Infectious disease/sepsis. Patient presents appearing very ill, with leukocytosis, tachycardia, lactic acidosis. Initial peritoneal fluid analysis was consistent with likely spontaneous bacterial peritonitis, but cultures have not been positive.. -Patient has been on empiric antibiotic coverage with Zosyn and ciprofloxacin. White blood cell count is a bit higher today, so urinalysis and chest x-ray were ordered. Chest x-ray shows right upper lobe and possible left upper lobe infiltrates. I will stop his Cipro, given negative peritoneal fluid analysis, and add vancomycin to the Zosyn, for possible healthcare associated pneumonia. #2. Cardiac. Patient presents with dyspnea, and atrial fibrillation with rapid ventricular response, apparently of new onset. Atrial fibrillation resolved. Echocardiogram does not indicate any significant abnormalities. A. fib was likely due to acute illness. -Troponin bumped slightly on admission, but is back to normal .. 3. CODE STATUS: Full code. Patient would not want long-term life support. His will act as his POA. 4. DVT prophylaxis: Use low-dose subcu heparin for now, to keep an eye on his platelets, which are borderline low. 5. History of alcohol abuse. Monitor with CIWA protocol. GI suggested if patient has encephalopathy he is at lower risk for alcohol withdrawal, but patient's ammonia level is normal. We will continue to monitor. 6. Tobacco abuse. -NicoDerm patch. 7. GI. Patient presents with apparent alcoholic liver cirrhosis, with associated ascites, which apparently has been getting quite a bit worse lately. CT scan also shows a liver mass, which could be benign, but may also be malignant. - Alpha-fetoprotein level is elevated, which is worrisome. GI recommends following radiologically. -Peptic ulcer disease prophylaxis with Protonix. -He will likely need to be discharged on a combination of Lasix and spironolactone or amiloride to help manage his ascites. Patient had repeat paracentesis and IV albumin today. -Patient has reported history of hepatitis C. Serologies were ordered by GI . Remove Chamberlain catheter to decrease risk of infection. 8. Renal. Patient also has a tiny lesion in the right kidney, which might require ultrasound to follow-up further to see if it is a cyst. 9. 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 --be sure he is up-to-date on flu vaccine and Pneumovax. 10. Chronic pain. He apparently has chronic disc issues. Patient requested switching IV morphine back to oral oxycodone , so that was done. Disposition: The patient's mentions they might be considering moving to the [facility] so that he can be connected with the [facility] for his care. Approximately 30 minutes was spent today, reviewing patient's test results, interviewing and examining him, reviewing plan of care with the patient , as well as staff, and reviewing the case with Felecia Aguilar of . Medical - PN: Qual - VTE Deep Vein Thrombosis/Pulmonary Embolism Present on Admission: No
[2017-10-17] MEDS ORDERED: VANCOMYCIN PER PHARMACY IV SCH (12:52)
--- NOTE | 2017-10-17 12:57 | Internal Med Progress Note ---
Medical - PN: Subj Patient information: Note initiated : 10/17/17 at 12:53 pm Service Date, if different from initiated Date: [] Patient: Neal Bolaños 62 y/o M admitted on 10/14/17 for AFib, Sepsis, Spontaneous Bacterial Peritonitis. Chief Complaint: [Ascites, cirrhosis 2/2 ETOH and HCV, sepsis] Interval history: Mr. 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 at bedside. Had 1.6L Paracentesis yesterday; repeat fluid analysis inconsistent with SBP. WBC continues to rise (14 today) and recent CXR shows RUL infiltrate). Per nursing, pt has been agitated, requesting cigarettes and beer. Lost 10lbs since yesterday. Tolerating diuretic therapy without renal insufficiency. Bilirubin increased to 5. No problems urinating since [place]lain d/c' d. Abdominal pain improved. - Constitutional Vitals: Vital Signs Temp Pulse Resp BP Pulse Ox 98.9 F 85 16 141/75 94 10/17/17 11:50 10/17/17 03:28 10/17/17 11:50 10/17/17 11:50 10/17/17 11:50 Period Temp Pulse Resp BP Sys/[place] Pulse Ox Last 24 Hr 98.9 F-100.3 F 85-106 12-20 127-153/59-117 92-98 Intake and Output 10/16/17 10/17/17 10/17/17 21:59 05:59 13:59 Intake Total 1100 / 1100 300 / 300 670 / 670 Output Total 2530 / 2530 1350 / 1350 1675 / 1675 Balance -1430 / -1430 -1050 / -1050 -1005 / -1005 Weight 182 lb 8 oz 182 lb 8 oz Patient Weight 10/18/17 05:59 Weight 182 lb 8 oz Intake & Output: Intake & Output 10/16/17 10/17/17 10/17/17 21:59 05:59 13:59 Intake Total 1100 / 1100 300 / 300 670 / 670 Output Total 2530 / 2530 1350 / 1350 1675 / 1675 Balance -1430 / -1430 -1050 / -1050 -1005 / -1005 Weight 182 lb 8 oz 182 lb 8 oz Intake: IV 450 / 450 50 / 50 250 / 250 Zosyn 3.375 gm In Dextrose 5% 50 / 50 50 / 50 50 / 50 in Water 50 ml @ 100 mls/hr IV Q6H [facility] Rx#:[id number] Oral 650 / 650 250 / 250 420 / 420 Output: Urine Catheter Amount 2530 / 2530 1350 / 1350 975 / 975 Void Amount 700 / 700 Other: Meal Dinner Breakfast Percent of Meal Consumed 100% 75% Feeding Ability Assist with Tray Set Up Independent # Bowel Movements 0 General appearance: average body habitus Exam: lethargic, responds to questions briefly with prompting - Respiratory Respiratory exam: Present: rhonchi Additional comments: right side - Cardiovascular Cardiovascular exam: Present: normal rate and rhythm Additional comments: no dependent edema - GI/Abdominal GI/Abdominal exam: Present: normal bowel sounds, distended, tenderness Additional comments: Decreased ascites. Less tender than yesterday. Midline scar. - Skin Additional comments: jaundiced. lumbar diskectomy scar without erythema, pain, induration or drainage. Medical - PN: Obj Da - Labs CBC & Chem 7: 10/17/17 03:35 10/17/17 03:35 Labs: Abnormal Lab Results 10/17/17 10/17/17 10/16/17 03:35 03:35 04:00 WBC 14.1 H 13.9 H RBC 2.97 L 3.17 L Hgb 10.9 L 11.6 L Hct 32.3 L 34.6 L MCV 108.8 H 109.1 H MCH 36.8 H 36.6 H RDW 14.9 H 15.3 H Plt Count 84 L 92 L MPV 11.9 H 12.1 H Crosby % (Auto) 17.0 H 16.7 H Eos % (Auto) 8.9 H Crosby # (Auto) 2.4 H 2.3 H Eos # (Auto) 0.9 H 1.2 H PT INR VBG Lactic Acid Calcium 8.2 L Total Bilirubin 5.0 H Direct Bilirubin 2.1 H GGT 68 H AST 69 H ALT Alkaline Phosphatase Lactate Dehydrogenase Troponin T NT-Pro-B Natriuret Pep Total Protein 5.2 L Albumin Globulin 1.8 L Alpha Fetoprotein Urine Opiates Screen 10/16/17 10/15/17 10/15/17 04:00 04:10 04:10 WBC 11.4 H RBC 3.11 L Hgb 11.3 L Hct 33.9 L MCV 109.0 H MCH 36.4 H RDW 15.4 H Plt Count 88 L MPV 11.7 H Crosby % (Auto) 15.2 H Eos % (Auto) 7.4 H Crosby # (Auto) 1.7 H Eos # (Auto) 0.8 H PT INR VBG Lactic Acid Calcium 7.7 L Total Bilirubin 4.1 H Direct Bilirubin 2.1 H GGT 89 H AST 90 H ALT 46 H Alkaline Phosphatase Lactate Dehydrogenase 262 H Troponin T NT-Pro-B Natriuret Pep Total Protein 4.8 L Albumin 2.7 L Globulin 2.1 L Alpha Fetoprotein 80.4 H Urine Opiates Screen 10/15/17 10/14/17 10/14/17 04:10 20:35 19:55 WBC RBC Hgb Hct MCV MCH RDW Plt Count MPV Crosby % (Auto) Eos % (Auto) Crosby # (Auto) Eos # (Auto) PT INR VBG Lactic Acid Calcium 7.6 L Total Bilirubin 3.9 H Direct Bilirubin 2.2 H GGT 85 H AST 90 H ALT 47 H Alkaline Phosphatase 119 H Lactate Dehydrogenase 265 H Troponin T NT-Pro-B Natriuret Pep 632.1 H Total Protein 5.1 L Albumin 2.8 L Globulin Alpha Fetoprotein Urine Opiates Screen Suspect positive A 10/14/17 10/14/17 10/14/17 19:55 15:15 14:30 WBC RBC Hgb Hct MCV MCH RDW Plt Count MPV Crosby % (Auto) Eos % (Auto) Crosby # (Auto) Eos # (Auto) PT INR VBG Lactic Acid 2.6 H 3.4 H Calcium Total Bilirubin Direct Bilirubin GGT AST ALT Alkaline Phosphatase Lactate Dehydrogenase Troponin T 0.04 H* NT-Pro-B Natriuret Pep Total Protein Albumin Globulin Alpha Fetoprotein Urine Opiates Screen 10/14/17 12:24 WBC RBC Hgb Hct MCV MCH RDW Plt Count MPV Crosby % (Auto) Eos % (Auto) Crosby # (Auto) Eos # (Auto) PT 16.7 H INR 1.3 H VBG Lactic Acid Calcium Total Bilirubin Direct Bilirubin GGT AST ALT Alkaline Phosphatase Lactate Dehydrogenase Troponin T NT-Pro-B Natriuret Pep Total Protein Albumin Globulin Alpha Fetoprotein Urine Opiates Screen Meds: Medications Acetaminophen (Tylenol) 500 mg PO Q6HP PRN PRN Reason: PAIN/FEVER > 101 Last Admin: 10/16/17 20:35 Dose: 500 mg Albuterol Sulfate (Ventolin) 2.5 mg NEB Q4HRT PRN PRN Reason: Shortness Of Breath Or Wheezing Amiloride HCl (Amiloride) 20 mg PO BID [facility] Last Admin: 10/17/17 09:08 Dose: 20 mg Clonidine HCl (Catapres) 0.1 mg PO Q4HP PRN PRN Reason: Alcohol Withdrawal Docusate Sodium (Colace) 100 mg PO BID PRN PRN Reason: Constipation Last Admin: 10/16/17 20:34 Dose: 100 mg Folic Acid (Folic Acid) 1 mg PO DAILY [facility] Last Admin: 10/17/17 09:03 Dose: 1 mg Furosemide (Lasix) 40 mg PO DAILY [facility] Last Admin: 10/17/17 09:07 Dose: 40 mg Heparin Sodium (Porcine) (Heparin) 5,000 unit SQ Q12 [facility] Last Admin: 10/17/17 09:03 Dose: 5,000 unit Piperacillin Sod/Tazobactam (Sod 3.375 gm/ Dextrose) 50 mls @ 100 mls/hr IV Q6H [facility] Last Admin: 10/17/17 11:51 Dose: 100 mls/hr Iron Carb/Multivit/Mainframe Applications Developer/Folic Acid (Multivitamin W/Minerals) 1 tab PO DAILY [facility] Last Admin: 10/17/17 09:08 Dose: 1 tab Lorazepam (Ativan) 0 mg IV Q4HP PRN; Protocol PRN Reason: Alcohol Withdrawal Lorazepam (Ativan) 0.5 mg IV Q4HP PRN PRN Reason: ANXIETY/SEDATION Last Admin: 10/17/17 11:47 Dose: 0.5 mg Magnesium Hydroxide (Milk Of Magnesia) 30 ml PO DAILYP PRN PRN Reason: Constipation Last Admin: 10/17/17 04:59 Dose: 30 ml Morphine Sulfate (Morphine) 4 mg IV Q2HP PRN PRN Reason: PAIN LEVEL > 6 Naloxone HCl (Narcan) 0.1 mg IV Q2MIN PRN PRN Reason: Opiate Reversal Nicotine (Nicoderm) 7 mg TOPICAL DAILY@1000 ANNELIESE Last Admin: 10/17/17 11:05 Dose: 7 mg Ondansetron HCl (Zofran) 4 mg IV Q4-6HP PRN PRN Reason: Nausea And Vomiting Oxycodone HCl (Roxicodone) 5 mg PO Q4HP PRN PRN Reason: Pain Last Admin: 10/17/17 09:06 Dose: 5 mg Pantoprazole Sodium (Protonix) 40 mg IV QAMAC [facility] Last Admin: 10/17/17 06:55 Dose: 40 mg Budesonide/Formoterol Fumarate [Symbicort] 80-4.5 Mcg Inhaler 2 dose INH BID [facility] Last Admin: 10/17/17 09:08 Dose: 2 dose Sodium Chloride (Saline Flush) 10 ml IV Q8 [facility] Last Admin: 10/17/17 11:50 Dose: 10 ml Thiamine HCl (Vitamin B1) 100 mg IM DAILY [facility] Last Admin: 10/17/17 09:08 Dose: 100 mg Vancomycin HCl (Vancomycin Per Pharmacy) 1 order IV ONCE ONE Stop: 10/17/17 12:53 Medical - PN: A/P - Time Spent With Patient Total time spent is greater than 50% in coordination of care (as documented) at patient's floor/unit and/or counseling patient: 15 - 24 minutes (1) Ascites due to alcoholic cirrhosis Status: Acute Assessment and plan: Continue diuretic therapy. Discussed importance of abstaining from alcohol with and patient. Emphasized 2g Na diet. Cautioned that cirrhotics are increased risk for infection and often experience a decline in liver function temporarily after alcohol cessation. EGD as an outpatient for variceal screening. Current Visit: Yes (2) Hepatitis C Status: Acute Assessment and plan: HCV PCR RNA and genotype pending. Serologies negative for HBV and HIV. Current Visit: Yes (3) Encephalopathy Status: Acute Assessment and plan: NH4 normal. Lethargic but no asterixis. Likely has minimal or grade 1 hepatic encephalopathy. Treatment with lactulose would be reasonable. Avoid constipation from narcotics. Current Visit: Yes (4) Liver mass, left lobe Status: Acute Assessment and plan: Will continue surveillance with imaging and AFP over next 3 months. Current Visit: Yes Medical - PN: Qual - VTE Deep Vein Thrombosis/Pulmonary Embolism Present on Admission: No
[2017-10-17 13:05] LABS: Appearance,Urine CLEAR; Bilirubin,Urine NEG (NEG); Color,Urine YELLOW; Glucose,Urine (UA) NEGATIVE (NEG); Leukocyte Esterase,Urine NEG /uL (NEG); Nitrate,Urine NEG (NEG); Protein,Urine NEG (NEG); Specific Gravity,Urine 1.005 (1.000-1.035); Urine Blood NEG mg/dL (<0.03); Urobilinogen,Urine NEG (NEG)
[2017-10-17] MEDS: VANCOMYCIN 1,000 MG in 0.9 % SODIUM CHLORIDE 250 ML IV SCH ×2 (13:32→22:46)
[2017-10-18] MEDS: PIPERACILLIN SODIUM/TAZOBACTAM 3.375 GM in DEXTROSE 5% IN WATER 50 ML IV SCH ×4 (00:29→18:18)
[2017-10-18] MEDS: oxyCODONE HCL 5 MG TABLET PO PRN ×5 (02:36→22:43)
[2017-10-18] MEDS: 0.9 % SODIUM CHLORIDE 10 ML SYRINGE IV SCH ×3 (05:49→23:46)
[2017-10-18 06:34] LABS: Basophils # (Auto) 0.1 K/mcL (0.0-0.3); Basophils % (Auto) 0.6 % (0.0-2.0); Eosinophils # (Auto) 1.3 K/mcL (0.0-0.7); Eosinophils % (Auto) 9.8 % (0.0-7.0); Granulocytes % (Auto) 55.8 % (38.0-78.0); Lymphocytes # (Auto) 2.7 K/mcL (1.5-4.8); Lymphocytes % (Auto) 19.8 % (15.5-49.0); Mean Corpuscular HGB Conc 33.4 g/dL (31.0-36.0); Mean Corpuscular Hemoglobin 36.7 pg (26.0-34.0); Monocytes # (Auto) 1.9 K/mcL (0.1-0.9); Platelet Count 101 K/mcL (140-440); RBC 3.33 M/mcL (4.50-5.90); Red Cell Distribution Width 15.4 % (11.5-14.5)
[2017-10-18 06:48] LABS: ALT/SGPT 44 U/l (0-40); Albumin 3.5 gm/dL (3.2-5.2); Albumin/Globulin Ratio 1.5 (1.0-2.3); Alkaline Phosphatase 120 U/L (39-117); Bilirubin,Direct 2.3 mg/dL (0.0-0.3); Blood Urea Nitrogen 11 mg/dl (6-20); Gamma Glutamyl Transpeptidase 79 U/L (8-61); Magnesium 1.9 mg/dL (1.6-2.5); Uric Acid 4.1 mg/dL (2.5-8.0)
[2017-10-18] MEDS: LACTULOSE 20 GM/30 ML ORAL.SOL PO SCH (08:05)
[2017-10-18] MEDS: PANTOPRAZOLE 40 MG VIAL IV SCH (08:05)
[2017-10-18] MEDS: FUROSEMIDE 40 MG TABLET PO SCH (08:05)
[2017-10-18] MEDS: MULTIVIT,THER IRON,CA,FA & MIN 1 TABLET PO SCH (08:06)
[2017-10-18] MEDS: aMILoride 5 MG TABLET PO SCH ×2 (08:06→20:43)
[2017-10-18] MEDS: FOLIC ACID 1 MG TABLET PO SCH (08:06)
[2017-10-18] MEDS: HEPARIN 5,000 UNIT/ML VIAL SQ SCH ×2 (08:31→20:43)
[2017-10-18] MEDS ORDERED: LACTULOSE 20 GM/30 ML ORAL.SOL PO SCH (09:00)
[2017-10-18] MEDS: VANCOMYCIN 1,500 MG in 0.9 % SODIUM CHLORIDE 500 ML IV SCH ×2 (10:54→20:43)
[2017-10-18] MEDS: NICOTINE 7 MG PATCH TOPICAL SCH (11:20)
[2017-10-18] MEDS: VANCOMYCIN 1,000 MG in 0.9 % SODIUM CHLORIDE 250 ML IV SCH (11:21)
--- NOTE | 2017-10-18 11:32 | Internal Med Progress Note ---
Medical - PN: Subj Patient information: Note initiated : 10/18/17 at 11:31 am Service Date, if different from initiated Date: [] Patient: Neal Bolaños 62 y/o M admitted on 10/14/17 for AFib, Sepsis, Spontaneous Bacterial Peritonitis. Chief Complaint: [] Interval history: October 14, 2017: History of present illness: Mr. Bolaños is a 62 year old with a past history of alcohol and tobacco abuse and hepatitis C. He also has chronic back pain, and underwent back surgery for what sounds like a discectomy about 2-1/2 weeks ago. When he saw his surgeon in follow-up, he complained that his abdomen was getting more and more distended , and that he was having abdominal pain that was radiating into his back. His surgeon strongly recommended that he see his PCP today, which he did. He was then referred to the emergency room for further evaluation. The patient had somewhat altered mental status on arrival. He was also found to be in A. fib with a rate of 170. Extremities were a bit mottled. Paracentesis was performed and showed turbid fluid, consistent with probable spontaneous bacterial peritonitis, cirrhosis with ascites. Elevated lactic acid was consistent with sepsis. The patient is now admitted for further workup and management. He and his deny that he has had recent fever or chills. He believes he has had abdominal swelling for about 1 month now. He was told of hepatitis C 10 years or so ago and told that he had liver damage, but does not have any follow-up for his liver health. He denies headaches or dizziness new eye or ear changes, sore throat or cough. He describes lower sternal chest pain in addition to epigastric pain today, which seems to be radiating towards his back between his shoulder blades. He has had increased shortness of breath since yesterday and worse today. He denies diaphoresis. He says he did vomit once in the emergency room today, and that was just clear fluid. He has diffuse abdominal pain. The pain did seem to improve after they took off about a liter of fluid in the emergency room. He denies palpitations, orthopnea, hematemesis, nausea. He does say that he is been struggling with some constipation which he blames on his pain medications. He denies dysuria. October 15: The patient thinks she is feeling a bit better today. However he still having moderate abdominal discomfort related to abdominal distention. Unfortunately, he appears to have gained about 5 pounds since admission. He denies fever chills, chest pain or palpitations. He does not have shortness of breath, but notes his abdomen seems to create a lot of pressure in his chest area as well. He had declined Chamberlain catheter last night, but had great difficulty emptying his bladder, so Chamberlain catheter was placed. He is continuing to have significant mid back pain. He says he thinks oral oxycodone works better for him than IV morphine. He is concerned that he may have constipation. He was up with physical therapy today, and continues to need moderate assistance for all mobility. Occupational Therapy also notes the patient has decreased cognition and coordination. He is requiring 5 L of oxygen to keep his O2 saturations above 90%. October 16: Today, the patient notes he is still having significant flank pain and still feels quite weak. Otherwise he thinks overall he is improved. He is having a little bit less pressure in his lower chest upper epigastric area. He denies fever chills, chest pain or palpitations significant shortness of breath, nausea or vomiting, diarrhea or constipation. He was seen by GI this morning, and they agree with IV albumin and paracentesis. They have also ordered some other studies to follow-up on his history of hepatitis C, and changed his diuretics around a little bit. Patient did have a low-grade fever this morning. Cultures so far have been negative. Peritoneal fluid will be recultured today. October 17: Today, the patient continues to complain of low back pain, and frequently requests oxycodone. He was more sedated and confused this morning, but became more alert as the day wore on. He states he really did not sleep well, and notes he has chronic insomnia at home. I mentioned to him that alcohol tends to make that worse. He says overall he definitely feels better than when he was admitted. So far he is tolerating oral diuretics. Chamberlain catheter was removed this morning. He denies fever chills, chest pain or shortness of breath, nausea or vomiting or diarrhea. October 18: Yesterday's chest x-ray did show bilateral upper lobe infiltrates, worrisome for aspiration pneumonia. The patient was already being covered with Zosyn, but vancomycin was added so this could be treated as HCAP. Ciprofloxacin was discontinued as it appears currently that he does not have SBP. Patient denies fever or chills, cough or shortness of breath. He continues to have issues with low back discomfort and occasional right upper quadrant discomfort, which is managed fairly well with oxycodone. Nurses note he has gotten a little more agitated over the last day or so, and more demanding of cigarettes. Otherwise, the patient notes that he continues to struggle with mild constipation. Lactulose was added today. He denies chest pain or palpitations , nausea or vomiting, diarrhea, dysuria. - Constitutional Vitals: Vital Signs Temp Pulse Resp BP Pulse Ox 98.4 F 84 16 122/78 97 10/18/17 11:28 10/18/17 11:28 10/18/17 11:28 10/18/17 11:28 10/18/17 11:28 Period Temp Pulse Resp BP Sys/[place] Pulse Ox Last 24 Hr 98.4 F-100.0 F 83-86 16-18 122-151/75-94 94-97 Intake and Output 10/17/17 10/18/17 10/18/17 21:59 05:59 13:59 Intake Total 660 / 660 920 / 920 Output Total 650 / 650 350 / 350 800 / 800 Balance 570 / 570 -800 / -800 Weight 181 lb 9.6 oz Intake & Output: Intake & Output 10/17/17 10/18/17 10/18/17 21:59 05:59 13:59 Intake Total 660 / 660 920 / 920 Output Total 650 / 650 350 / 350 800 / 800 Balance 570 / 570 -800 / -800 Weight 181 lb 9.6 oz Intake: IV 300 / 300 300 / 300 Zosyn 3.375 gm In Dextrose 5% 50 / 50 50 / 50 in Water 50 ml @ 100 mls/hr IV Q6H ANNELIESE Rx#:[id number] Vancomycin 1,000 mg In Sodium 250 / 250 250 / 250 Chloride 0.9% 250 ml @ 250 mls/ hr IV Q12H ANNELIESE Rx#:[id number] Oral 360 / 360 620 / 620 Output: Void Amount 650 / 650 350 / 350 800 / 800 Other: # Voids 1 1 He is sitting up on the side of his bed, and seems fairly alert. Neck is supple without obvious JVD. Cardiac exam shows regular rate and rhythm. Lungs have decreased breath sounds at the bases, but are otherwise clear. Abdomen is quite protuberant and distended. Abdomen is less tender. Extremities show about 1+ pitting edema. Neurologic exam: The patient seems a little more alert this morning, but does sleep quite a bit, which the nurses feel is due to the oxycodone. Medical - PN: Obj Da - Labs CBC & Chem 7: 10/18/17 03:30 10/18/17 03:30 Labs: Abnormal Lab Results 10/18/17 10/18/17 10/17/17 03:30 03:30 03:35 WBC 13.4 H 14.1 H RBC 3.33 L 2.97 L Hgb 12.2 L 10.9 L Hct 36.6 L 32.3 L MCV 110.0 H 108.8 H MCH 36.7 H 36.8 H RDW 15.4 H 14.9 H Plt Count 101 L 84 L MPV 11.8 H 11.9 H [place] % (Auto) 14.0 H 17.0 H Eos % (Auto) 9.8 H [place] # (Auto) 1.9 H 2.4 H Eos # (Auto) 1.3 H 0.9 H Calcium Total Bilirubin 4.9 H Direct Bilirubin 2.3 H GGT 79 H AST 72 H ALT 44 H Alkaline Phosphatase 120 H Lactate Dehydrogenase 284 H Total Protein Albumin Globulin 10/17/17 10/16/17 10/16/17 03:35 04:00 04:00 WBC 13.9 H RBC 3.17 L Hgb 11.6 L Hct 34.6 L MCV 109.1 H MCH 36.6 H RDW 15.3 H Plt Count 92 L MPV 12.1 H [place] % (Auto) 16.7 H Eos % (Auto) 8.9 H [place] # (Auto) 2.3 H Eos # (Auto) 1.2 H Calcium 8.2 L 7.7 L Total Bilirubin 5.0 H 4.1 H Direct Bilirubin 2.1 H 2.1 H GGT 68 H 89 H AST 69 H 90 H ALT 46 H Alkaline Phosphatase Lactate Dehydrogenase 262 H Total Protein 5.2 L 4.8 L Albumin 2.7 L Globulin 1.8 L 2.1 L October 2: Urinalysis: Normal. Chest x-ray: IMPRESSION: Moderate right upper lobe infiltrate with probable small infiltrate developing in the left upper lobe. October 16 Peritoneal fluid: Gram stain: Many polys, no organisms seen. October 15: Alpha-fetoprotein is elevated at 80 Peritoneal fluid analysis: 13% neutrophils, 21% lymphocytes, 57 macrophages. Total protein 0.8, albumin 0.4, LDH 49, glucose 110, amylase 26, lipase 21 Echocardiogram: Shows normal left ventricular systolic function with ejection fraction 55%. No wall motion abnormalities. No valvular abnormalities. October 14: Nasal MRSA screen was negative. Lactic acid #1: 5.3; lactic acid #2: 3.4 Peritoneal fluid Gram stain: Shows moderate polys, mononuclear cells, many red blood cells, no organisms. EKG at 10:13 AM: Shows A. fib with a rate of 170, with nonspecific ST-T changes. EKG at 2:39 PM: Shows probable sinus rhythm, although P waves not well visualized. Next CT of the abdomen: IMPRESSION: 1. Moderate cirrhotic changes progressing rapidly over the past two months. There is moderate ascites throughout the abdomen and pelvis. No definite evidence of portal hypertension. 2. 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 It also represent an adenoma, focal nodular hyperplasia, teratoma or even hepatocellular carcinoma. Please correlate with alpha-fetoprotein and suggest ultrasound-guided biopsy 3. Subsegmental atelectasis both lower lobes and tiny bilateral pleural effusions. 4. 16 mm low-attenuation lesion posterior cortex inferior right kidney. Suggest renal ultrasound to determine whether it is a cyst or solid lesion 5. Splenectomy changes Chest x-ray: Shows mild cardiomegaly, mild pulmonary vascular congestion consistent with mild CHF. Small right pleural effusion. Meds: Medications Acetaminophen (Tylenol) 500 mg PO Q6HP PRN PRN Reason: PAIN/FEVER > 101 Last Admin: 10/16/17 20:35 Dose: 500 mg Albuterol Sulfate (Ventolin) 2.5 mg NEB Q4HRT PRN PRN Reason: Shortness Of Breath Or Wheezing Amiloride HCl (Amiloride) 20 mg PO BID ANNELIESE Last Admin: 10/18/17 08:06 Dose: 20 mg Clonidine HCl (Catapres) 0.1 mg PO Q4HP PRN PRN Reason: Alcohol Withdrawal Docusate Sodium (Colace) 100 mg PO BID PRN PRN Reason: Constipation Last Admin: 10/16/17 20:34 Dose: 100 mg Folic Acid (Folic Acid) 1 mg PO DAILY [facility] Last Admin: 10/18/17 08:06 Dose: 1 mg Furosemide (Lasix) 40 mg PO DAILY [facility] Last Admin: 10/18/17 08:05 Dose: 40 mg Heparin Sodium (Porcine) (Heparin) 5,000 unit SQ Q12 [facility] Last Admin: 10/18/17 08:31 Dose: 5,000 unit Piperacillin Sod/Tazobactam (Sod 3.375 gm/ Dextrose) 50 mls @ 100 mls/hr IV Q6H [facility] Last Admin: 10/18/17 05:49 Dose: 100 mls/hr Vancomycin HCl 1,500 mg/ (Sodium Chloride) 500 mls @ 333.3 mls/hr IV Q12H [facility] Last Admin: 10/18/17 10:54 Dose: 333.3 mls/hr Iron Carb/Multivit/Certified Hearing Instrument Dispenser/Folic Acid (Multivitamin W/Minerals) 1 tab PO DAILY [facility] Last Admin: 10/18/17 08:06 Dose: 1 tab Lactulose (Cephulac) 10 gm PO DAILY [facility] Last Admin: 10/18/17 08:05 Dose: 10 gm Lorazepam (Ativan) 0 mg IV Q4HP PRN; Protocol PRN Reason: Alcohol Withdrawal Lorazepam (Ativan) 0.5 mg IV Q4HP PRN PRN Reason: ANXIETY/SEDATION Last Admin: 10/17/17 22:50 Dose: 0.5 mg Magnesium Hydroxide (Milk Of Magnesia) 30 ml PO DAILYP PRN PRN Reason: Constipation Last Admin: 10/17/17 04:59 Dose: 30 ml Morphine Sulfate (Morphine) 4 mg IV Q2HP PRN PRN Reason: PAIN LEVEL > 6 Last Admin: 10/18/17 02:35 Dose: 2 mg Naloxone HCl (Narcan) 0.1 mg IV Q2MIN PRN PRN Reason: Opiate Reversal Nicotine (Nicoderm) 7 mg TOPICAL DAILY@1000 [facility] Last Admin: 10/18/17 11:20 Dose: Not Given Ondansetron HCl (Zofran) 4 mg IV Q4-6HP PRN PRN Reason: Nausea And Vomiting Oxycodone HCl (Roxicodone) 5 mg PO Q4HP PRN PRN Reason: Pain Last Admin: 10/18/17 08:06 Dose: 5 mg Pantoprazole Sodium (Protonix) 40 mg IV QAMAC [facility] Last Admin: 10/18/17 08:05 Dose: 40 mg Budesonide/Formoterol Fumarate [Symbicort] 80-4.5 Mcg Inhaler 2 dose INH BID [facility] Last Admin: 10/17/17 20:30 Dose: 2 dose Sodium Chloride (Saline Flush) 10 ml IV Q8 [facility] Last Admin: 10/18/17 05:49 Dose: 10 ml Thiamine HCl (Vitamin B1) 100 mg IM DAILY [facility] Last Admin: 10/17/17 09:08 Dose: 100 mg Vancomycin HCl (Vancomycin Per Pharmacy) 1 order IV UD [facility] Medical - PN: A/P - Time Spent With Patient Total time spent is greater than 50% in coordination of care (as documented) at patient's floor/unit and/or counseling patient: (1) Elevated troponin Status: Acute Current Visit: No (2) CHF (congestive heart failure) Status: Acute Current Visit: No (3) Atrial fibrillation Status: Acute Current Visit: No (4) Cirrhosis of liver with ascites Status: Acute Current Visit: No (5) Lactic acid acidosis Status: Acute Current Visit: No (6) SBP (spontaneous bacterial peritonitis) Status: Acute Current Visit: No (7) Sepsis Status: Acute Current Visit: No - Narrative A/P Narrative: #1. Infectious disease/sepsis. Patient presents appearing very ill, with leukocytosis, tachycardia, lactic acidosis. Initial peritoneal fluid analysis was consistent with likely spontaneous bacterial peritonitis, but cultures have not been positive.. - Chest x-ray shows right upper lobe and possible left upper lobe infiltrates. Patient is now on vancomycin to the [facility], for possible healthcare associated pneumonia. Leukocytosis is slightly improved today. Patient denies symptoms. #2. Cardiac. Patient presents with dyspnea, and atrial fibrillation with rapid ventricular response, apparently of new onset. Atrial fibrillation resolved. Echocardiogram does not indicate any significant abnormalities. A. fib was likely due to acute illness. -Troponin bumped slightly on admission, but is back to normal .. 3. CODE STATUS: Full code. Patient would not want long-term life support. His will act as his POA. 4. DVT prophylaxis: Use low-dose subcu heparin for now, to keep an eye on his platelets, which are borderline low. 5. History of alcohol abuse. Monitor with CIWA protocol. GI suggested if patient has encephalopathy he is at lower risk for alcohol withdrawal. We will continue to monitor. -Ammonia level is a bit higher today. Scheduled lactulose was added. 6. Tobacco abuse. -NicoDerm patch. Nurses feel he is having more nicotine cravings, so patch was increased to 14 mg. 7. GI. Patient presents with apparent lliver cirrhosis due to chronic alcohol abuse and hepatitis C, with associated ascites, which apparently has been getting quite a bit worse lately. CT scan also shows a liver mass, which could be benign, but may also be malignant. - Alpha-fetoprotein level is elevated, which is worrisome. GI recommends following radiologically. -Peptic ulcer disease prophylaxis with Protonix. -He will likely need to be discharged on a combination of Lasix and spironolactone or amiloride to help manage his ascites. He is status post paracentesis 2. Weight is down about 6 pounds since admission. -Patient has reported history of hepatitis C. Serologies were ordered by GI . 8. Renal. Patient also has a tiny lesion in the right kidney, which might require ultrasound to follow-up further to see if it is a cyst. 9. 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 --be sure he is up-to-date on flu vaccine and Pneumovax. 10. Chronic pain. He apparently has chronic disc issues. Patient requested switching IV morphine back to oral oxycodone , so that was done. Disposition: The patient's mentions they might be considering moving to the [facility]. Approximately 30 minutes was spent today, reviewing patient's test results, interviewing and examining him, reviewing plan of care with the patient , as well as staff, and writing orders. Medical - PN: Qual - VTE Deep Vein Thrombosis/Pulmonary Embolism Present on Admission: No
[2017-10-18] MEDS: THIAMINE 100 MG/ML VIAL IM SCH (12:06)
[2017-10-18] MEDS ORDERED: PNEUMOCOCCAL 23-VAL P-SAC VAC 0.5 ML VIAL IM ONE (13:15)
[2017-10-18] MEDS: NICOTINE 14 MG PATCH TOPICAL SCH (14:08)
[2017-10-18] MEDS: Budesonide/Formoterol Fumarate [Symbicort] 80-4.5 mcg Inhaler INH SCH ×2 (17:49→19:15)
[2017-10-19] MEDS: PIPERACILLIN SODIUM/TAZOBACTAM 3.375 GM in DEXTROSE 5% IN WATER 50 ML IV SCH ×5 (00:09→23:28)
[2017-10-19] MEDS: oxyCODONE HCL 5 MG TABLET PO PRN ×5 (02:34→22:16)
[2017-10-19 04:59] LABS: ALT/SGPT 52 U/l (0-40); Albumin 3.9 gm/dL (3.2-5.2); Albumin/Globulin Ratio 1.6 (1.0-2.3); Alkaline Phosphatase 124 U/L (39-117); Bilirubin,Direct 2.2 mg/dL (0.0-0.3); Blood Urea Nitrogen 11 mg/dl (6-20); Gamma Glutamyl Transpeptidase 84 U/L (8-61); Magnesium 1.9 mg/dL (1.6-2.5); Uric Acid 3.9 mg/dL (2.5-8.0)
[2017-10-19] MEDS: 0.9 % SODIUM CHLORIDE 10 ML SYRINGE IV SCH ×4 (05:38→23:29)
[2017-10-19 06:54] LABS: Mean Cell Volume 108.9 fL (80.0-100.0); Mean Corpuscular HGB Conc 33.9 g/dL (31.0-36.0); Platelet Count 114 K/mcL (140-440); RBC 3.44 M/mcL (4.50-5.90); Red Cell Distribution Width 15.8 % (11.5-14.5)
[2017-10-19 06:56] LABS: Anisocytosis 1+ (NONE SEEN); Basophils % (Manual) 1 % (0-2); Eosinophils % (Manual) 5 % (0-7); Howell-Jolly Bodies OCC (NONE SEEN); Lymphocytes % 22 % (15-49); Macrocytosis 3+ (NONE SEEN); Monocytes % (Manual) 10 % (1-12); Platelet Estimate DECREASED (NORMAL); RBC Morphology ABNORM (NORMAL); Segmented Neutrophils % 59 % (38-78); Target Cells 1+ (NONE SEEN)
[2017-10-19] MEDS: PANTOPRAZOLE 40 MG VIAL IV SCH (07:40)
[2017-10-19] MEDS: Budesonide/Formoterol Fumarate [Symbicort] 80-4.5 mcg Inhaler INH SCH ×2 (07:50→20:56)
[2017-10-19] MEDS: FOLIC ACID 1 MG TABLET PO SCH (09:13)
[2017-10-19] MEDS: HEPARIN 5,000 UNIT/ML VIAL SQ SCH ×2 (09:13→20:53)
[2017-10-19] MEDS: THIAMINE 100 MG/ML VIAL IM SCH (09:13)
[2017-10-19] MEDS: FUROSEMIDE 40 MG TABLET PO SCH (09:13)
[2017-10-19] MEDS: MULTIVIT,THER IRON,CA,FA & MIN 1 TABLET PO SCH (09:13)
[2017-10-19] MEDS: aMILoride 5 MG TABLET PO SCH ×2 (09:13→20:53)
[2017-10-19] MEDS: LACTULOSE 20 GM/30 ML ORAL.SOL PO SCH (09:14)
[2017-10-19] MEDS: NICOTINE 14 MG PATCH TOPICAL SCH (09:18)
--- NOTE | 2017-10-19 10:25 | Internal Med Progress Note ---
Medical - PN: Subj Patient information: Note initiated : 10/19/17 at 10:25 am Patient: Neal Bolaños 62 y/o M admitted on 10/14/17 for AFib, Sepsis, Spontaneous Bacterial Peritonitis. Interval history: October 14, 2017: History of present illness: Mr. Bolaños is a 62 year old with a past history of alcohol and tobacco abuse and hepatitis C. He also has chronic back pain, and underwent back surgery for what sounds like a discectomy about 2-1/2 weeks ago. When he saw his surgeon in follow-up, he complained that his abdomen was getting more and more distended , and that he was having abdominal pain that was radiating into his back. His surgeon strongly recommended that he see his PCP today, which he did. He was then referred to the emergency room for further evaluation. The patient had somewhat altered mental status on arrival. He was also found to be in A. fib with a rate of 170. Extremities were a bit mottled. Paracentesis was performed and showed turbid fluid, consistent with probable spontaneous bacterial peritonitis, cirrhosis with ascites. Elevated lactic acid was consistent with sepsis. The patient is now admitted for further workup and management. He and his deny that he has had recent fever or chills. He believes he has had abdominal swelling for about 1 month now. He was told of hepatitis C 10 years or so ago and told that he had liver damage, but does not have any follow-up for his liver health. He denies headaches or dizziness new eye or ear changes, sore throat or cough. He describes lower sternal chest pain in addition to epigastric pain today, which seems to be radiating towards his back between his shoulder blades. He has had increased shortness of breath since yesterday and worse today. He denies diaphoresis. He says he did vomit once in the emergency room today, and that was just clear fluid. He has diffuse abdominal pain. The pain did seem to improve after they took off about a liter of fluid in the emergency room. He denies palpitations, orthopnea, hematemesis, nausea. He does say that he is been struggling with some constipation which he blames on his pain medications. He denies dysuria. October 15: The patient thinks she is feeling a bit better today. However he still having moderate abdominal discomfort related to abdominal distention. Unfortunately, he appears to have gained about 5 pounds since admission. He denies fever chills, chest pain or palpitations. He does not have shortness of breath, but notes his abdomen seems to create a lot of pressure in his chest area as well. He had declined Chamberlain catheter last night, but had great difficulty emptying his bladder, so Chamberlain catheter was placed. He is continuing to have significant mid back pain. He says he thinks oral oxycodone works better for him than IV morphine. He is concerned that he may have constipation. He was up with physical therapy today, and continues to need moderate assistance for all mobility. Occupational Therapy also notes the patient has decreased cognition and coordination. He is requiring 5 L of oxygen to keep his O2 saturations above 90%. October 16: Today, the patient notes he is still having significant flank pain and still feels quite weak. Otherwise he thinks overall he is improved. He is having a little bit less pressure in his lower chest upper epigastric area. He denies fever chills, chest pain or palpitations significant shortness of breath, nausea or vomiting, diarrhea or constipation. He was seen by GI this morning, and they agree with IV albumin and paracentesis. They have also ordered some other studies to follow-up on his history of hepatitis C, and changed his diuretics around a little bit. Patient did have a low-grade fever this morning. Cultures so far have been negative. Peritoneal fluid will be recultured today. October 17: Today, the patient continues to complain of low back pain, and frequently requests oxycodone. He was more sedated and confused this morning, but became more alert as the day wore on. He states he really did not sleep well, and notes he has chronic insomnia at home. I mentioned to him that alcohol tends to make that worse. He says overall he definitely feels better than when he was admitted. So far he is tolerating oral diuretics. Chamberlain catheter was removed this morning. He denies fever chills, chest pain or shortness of breath, nausea or vomiting or diarrhea. October 18: Yesterday's chest x-ray did show bilateral upper lobe infiltrates, worrisome for aspiration pneumonia. The patient was already being covered with Zosyn, but vancomycin was added so this could be treated as HCAP. Ciprofloxacin was discontinued as it appears currently that he does not have SBP. Patient denies fever or chills, cough or shortness of breath. He continues to have issues with low back discomfort and occasional right upper quadrant discomfort, which is managed fairly well with oxycodone. Nurses note he has gotten a little more agitated over the last day or so, and more demanding of cigarettes. Otherwise, the patient notes that he continues to struggle with mild constipation. Lactulose was added today. He denies chest pain or palpitations , nausea or vomiting, diarrhea, dysuria. October 19: Today, the patient says he is feeling reasonably well. He continues to have significant low back pain, which she had hoped his recent disc surgery would address. He says it did take away the pain in his leg, but now the low back pain seems worse. He also continues to have mild lower abdominal discomfort that radiates up into his flanks, likely related to his ascites. Chest x-ray indicates pneumonia, the patient continues to deny fever chills, cough, shortness of breath. White blood cell count bumped up today, for uncertain reasons. The only change since yesterday was that we stop ciprofloxacin. He continues on Zosyn and vancomycin. Otherwise, he denies fever or chills, sore throat, swollen glands, chest pain or palpitations, shortness of breath, nausea or vomiting, diarrhea. He still feels mildly constipated. He denies dysuria, but is urinating frequently since being started on the diuretics. Nurses note he is a little confused at times, likely due to the frequent pain medications that he requests. - Constitutional Vitals: Vital Signs Temp Pulse Resp BP Pulse Ox 99 F 84 16 129/84 96 10/19/17 07:34 10/19/17 07:34 10/19/17 07:34 10/19/17 07:34 10/19/17 07:34 Period Temp Pulse Resp BP Sys/R[place] Pulse Ox Last 24 Hr 97.9 F-99 F 83-98 16-20 114-180/71-84 95-97 Intake and Output 10/18/17 10/19/17 10/19/17 21:59 05:59 13:59 Intake Total 690 / 690 1750 / 1750 Output Total 1140 / 1140 1100 / 1100 Balance -450 / -450 650 / 650 Weight 166 lb 4.8 oz Intake & Output: Intake & Output 10/18/17 10/19/17 10/19/17 21:59 05:59 13:59 Intake Total 690 / 690 1750 / 1750 Output Total 1140 / 1140 1100 / 1100 Balance -450 / -450 650 / 650 Weight 166 lb 4.8 oz Intake: IV 50 / 50 550 / 550 Zosyn 3.375 gm In Dextrose 5% 50 / 50 50 / 50 in Water 50 ml @ 100 mls/hr IV Q6H ANNELIESE Rx#:[id number] Vancomycin 1,500 mg In Sodium 500 / 500 Chloride 0.9% 500 ml @ 333.3 mls/hr IV Q12H ANNELIESE Rx#: [id number] Oral 640 / 640 1200 / 1200 Output: Void Amount 1140 / 1140 1100 / 1100 Other: Meal Dinner Percent of Meal Consumed 100% He is sitting up on the side of his bed, and seems fairly alert. Intake and output since admission show that he is negative about 2920 mL. Weight on arrival was 187 pounds, went up to 192, and since has dropped to 166 pounds Neck is supple without obvious JVD. Cardiac exam shows regular rate and rhythm. Lungs have decreased breath sounds at the bases, but are otherwise clear. Abdomen is quite protuberant and distended. Abdomen is less tender. Extremities show about 1+ pitting edema. Neurologic exam: The patient seems a little more alert this morning. Medical - PN: Obj Da - Labs CBC & Chem 7: 10/19/17 04:00 10/19/17 04:00 Labs: Abnormal Lab Results 10/19/17 10/19/17 10/18/17 04:00 04:00 03:30 WBC 15.7 H 13.4 H RBC 3.44 L 3.33 L Hgb 12.7 L 12.2 L Hct 37.5 L 36.6 L MCV 108.9 H 110.0 H MCH 37.0 H 36.7 H RDW 15.8 H 15.4 H Plt Count 114 L 101 L MPV 11.3 H 11.8 H Overton % (Auto) 14.0 H Eos % (Auto) 9.8 H Overton # (Auto) 1.9 H Eos # (Auto) 1.3 H Reactive Lymphocytes 3 H Platelet Estimate Decreased A RBC Morphology Abnorm A Anisocytosis 1+ A Macrocytosis 3+ A Target Cells 1+ A Goodrich-Goldthwaite Bodies Occ A Carbon Dioxide 20 L Calcium Total Bilirubin 4.6 H Direct Bilirubin 2.2 H GGT 84 H AST 88 H ALT 52 H Alkaline Phosphatase 124 H Lactate Dehydrogenase 284 H Total Protein Globulin 10/18/17 10/17/17 10/17/17 03:30 03:35 03:35 WBC 14.1 H RBC 2.97 L Hgb 10.9 L Hct 32.3 L MCV 108.8 H MCH 36.8 H RDW 14.9 H Plt Count 84 L MPV 11.9 H Overton % (Auto) 17.0 H Eos % (Auto) Overton # (Auto) 2.4 H Eos # (Auto) 0.9 H Reactive Lymphocytes Platelet Estimate RBC Morphology Anisocytosis Macrocytosis Target Cells Goodrich-Goldthwaite Bodies Carbon Dioxide Calcium 8.2 L Total Bilirubin 4.9 H 5.0 H Direct Bilirubin 2.3 H 2.1 H GGT 79 H 68 H AST 72 H 69 H ALT 44 H Alkaline Phosphatase 120 H Lactate Dehydrogenase 284 H Total Protein 5.2 L Globulin 1.8 L October 17: Urinalysis: Normal. Chest x-ray: IMPRESSION: Moderate right upper lobe infiltrate with probable small infiltrate developing in the left upper lobe. October 16 Peritoneal fluid: Gram stain: Many polys, no organisms seen. October 15: Alpha-fetoprotein is elevated at 80 Peritoneal fluid analysis: 13% neutrophils, 21% lymphocytes, 57 macrophages. Total protein 0.8, albumin 0.4, LDH 49, glucose 110, amylase 26, lipase 21 Echocardiogram: Shows normal left ventricular systolic function with ejection fraction 55%. No wall motion abnormalities. No valvular abnormalities. October 14: Nasal MRSA screen was negative. Lactic acid #1: 5.3; lactic acid #2: 3.4 Peritoneal fluid Gram stain: Shows moderate polys, mononuclear cells, many red blood cells, no organisms. EKG at 10:13 AM: Shows A. fib with a rate of 170, with nonspecific ST-T changes. EKG at 2:39 PM: Shows probable sinus rhythm, although P waves not well visualized. Next CT of the abdomen: IMPRESSION: 1. Moderate cirrhotic changes progressing rapidly over the past two months. There is moderate ascites throughout the abdomen and pelvis. No definite evidence of portal hypertension. 2. 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 It also represent an adenoma, focal nodular hyperplasia, teratoma or even hepatocellular carcinoma. Please correlate with alpha-fetoprotein and suggest ultrasound-guided biopsy 3. Subsegmental atelectasis both lower lobes and tiny bilateral pleural effusions. 4. 16 mm low-attenuation lesion posterior cortex inferior right kidney. Suggest renal ultrasound to determine whether it is a cyst or solid lesion 5. Splenectomy changes Chest x-ray: Shows mild cardiomegaly, mild pulmonary vascular congestion consistent with mild CHF. Small right pleural effusion. Meds: Medications Acetaminophen (Tylenol) 500 mg PO Q6HP PRN PRN Reason: PAIN/FEVER > 101 Last Admin: 10/16/17 20:35 Dose: 500 mg Albuterol Sulfate (Ventolin) 2.5 mg NEB Q4HRT PRN PRN Reason: Shortness Of Breath Or Wheezing Amiloride HCl (Amiloride) 20 mg PO BID [facility] Last Admin: 10/19/17 09:13 Dose: 20 mg Clonidine HCl (Catapres) 0.1 mg PO Q4HP PRN PRN Reason: Alcohol Withdrawal Docusate Sodium (Colace) 100 mg PO BID PRN PRN Reason: Constipation Last Admin: 10/16/17 20:34 Dose: 100 mg Folic Acid (Folic Acid) 1 mg PO DAILY [facility] Last Admin: 10/19/17 09:13 Dose: 1 mg Furosemide (Lasix) 40 mg PO DAILY [facility] Last Admin: 10/19/17 09:13 Dose: 40 mg Heparin Sodium (Porcine) (Heparin) 5,000 unit SQ Q12 ANNELIESE Last Admin: 10/19/17 09:13 Dose: 5,000 unit Piperacillin Sod/Tazobactam (Sod 3.375 gm/ Dextrose) 50 mls @ 100 mls/hr IV Q6H ANNELIESE Last Admin: 10/19/17 05:37 Dose: 100 mls/hr Vancomycin HCl 1,500 mg/ (Sodium Chloride) 500 mls @ 333.3 mls/hr IV Q12H [facility] Last Infusion: 10/18/17 22:14 Dose: Infused Iron Carb/Multivit/[place]/Folic Acid (Multivitamin W/Minerals) 1 tab PO DAILY [facility] Last Admin: 10/19/17 09:13 Dose: 1 tab Lactulose (Cephulac) 10 gm PO DAILY [facility] Last Admin: 10/19/17 09:14 Dose: 10 gm Lorazepam (Ativan) 0 mg IV Q4HP PRN; Protocol PRN Reason: Alcohol Withdrawal Lorazepam (Ativan) 0.5 mg IV Q4HP PRN PRN Reason: ANXIETY/SEDATION Last Admin: 10/17/17 22:50 Dose: 0.5 mg Magnesium Hydroxide (Milk Of Magnesia) 30 ml PO DAILYP PRN PRN Reason: Constipation Last Admin: 10/17/17 04:59 Dose: 30 ml Morphine Sulfate (Morphine) 2 mg IV Q2HP PRN PRN Reason: PAIN LEVEL > 6 Last Admin: 10/19/17 05:31 Dose: 2 mg Naloxone HCl (Narcan) 0.1 mg IV Q2MIN PRN PRN Reason: Opiate Reversal Nicotine (Nicoderm) 14 mg TOPICAL DAILY@1000 [facility] Last Admin: 10/19/17 09:18 Dose: 14 mg Ondansetron HCl (Zofran) 4 mg IV Q4-6HP PRN PRN Reason: Nausea And Vomiting Oxycodone HCl (Roxicodone) 5 mg PO Q4HP PRN PRN Reason: Pain Last Admin: 10/19/17 06:12 Dose: 5 mg Pantoprazole Sodium (Protonix) 40 mg IV QAMAC [facility] Last Admin: 10/19/17 07:40 Dose: 40 mg Budesonide/Formoterol Fumarate [Symbicort] 80-4.5 Mcg Inhaler 2 dose INH BID [facility] Last Admin: 10/19/17 07:50 Dose: 2 dose Sodium Chloride (Saline Flush) 10 ml IV Q8 [facility] Last Admin: 10/19/17 05:38 Dose: 10 ml Thiamine HCl (Vitamin B1) 100 mg IM DAILY [facility] Last Admin: 10/19/17 09:13 Dose: 100 mg Vancomycin HCl (Vancomycin Per Pharmacy) 1 order IV UD [facility] Medical - PN: A/P - Time Spent With Patient Total time spent is greater than 50% in coordination of care (as documented) at patient's floor/unit and/or counseling patient: 25 - 35 minutes (1) Elevated troponin Status: Acute Current Visit: No (2) CHF (congestive heart failure) Status: Acute Current Visit: No (3) Atrial fibrillation Status: Acute Current Visit: No (4) Cirrhosis of liver with ascites Status: Acute Current Visit: No (5) Lactic acid acidosis Status: Acute Current Visit: No (6) SBP (spontaneous bacterial peritonitis) Status: Acute Current Visit: No (7) Sepsis Status: Acute Current Visit: No - Narrative A/P Narrative: #1. Infectious disease/sepsis. Patient presents appearing very ill, with leukocytosis, tachycardia, lactic acidosis. Initial peritoneal fluid analysis was consistent with likely spontaneous bacterial peritonitis, but cultures have not been positive.. - Chest x-ray shows right upper lobe and possible left upper lobe infiltrates. Patient is now on vancomycin to the [facility], for possible healthcare associated pneumonia. Patient denies symptoms. -White blood cell count is higher today, for uncertain reasons. This was reviewed with GI, and they recommended he go back on the suppressive ciprofloxacin to prevent SBP. We will continue to monitor. #2. Cardiac. Patient presents with dyspnea, and atrial fibrillation with rapid ventricular response, apparently of new onset. Atrial fibrillation resolved. Echocardiogram does not indicate any significant abnormalities. A. fib was likely due to acute illness. -Troponin bumped slightly on admission, but is back to normal .. 3. CODE STATUS: Full code. Patient would not want long-term life support. His will act as his POA. 4. DVT prophylaxis: Use low-dose subcu heparin for now, to keep an eye on his platelets, which are borderline low. 5. History of alcohol abuse. Monitor with CIWA protocol. GI suggested if patient has encephalopathy he is at lower risk for alcohol withdrawal. We will continue to monitor. -Ammonia level is a bit higher today. Scheduled lactulose was added. 6. Tobacco abuse. -NicoDerm patch. Nurses feel he is having more nicotine cravings, so patch was increased to 14 mg. 7. GI. Patient presents with apparent lliver cirrhosis due to chronic alcohol abuse and hepatitis C, with associated ascites, which apparently has been getting quite a bit worse lately. CT scan also shows a liver mass, which could be benign, but may also be malignant. - Alpha-fetoprotein level is elevated, which is worrisome. GI recommends following radiologically. -Peptic ulcer disease prophylaxis with Protonix. -He will likely need to be discharged on a combination of Lasix and spironolactone or amiloride to help manage his ascites. He is status post paracentesis 2. Weight is down about 18 pounds since admission. -Patient has reported history of hepatitis C. Serologies were ordered by GI . 8. Renal. Patient also has a tiny lesion in the right kidney, which might require ultrasound to follow-up further to see if it is a cyst. 9. 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 --be sure he is up-to-date on flu vaccine and Pneumovax. 10. Chronic pain. He apparently has chronic disc issues. Patient continues to complain of fairly severe low back pain, at the site of his recent disc surgery. The site itself looks okay to me, without signs of inflammation or discharge. We will try adding a topical Lidoderm patch to see if that helps with the local pain. I will also touch base with orthopedics to see if we should pursue any imaging. Continue oral oxycodone, try to limit IV pain medications, regarding mental status. Disposition: The patient's mentions they might be considering moving to the [facility] so that he can be connected with the [facility] for his care. Approximately 30 minutes was spent today, reviewing patient's test results, interviewing and examining him, reviewing plan of care with the patient , as well as staff, and GI, and writing orders. Medical - PN: Qual - VTE Deep Vein Thrombosis/Pulmonary Embolism Present on Admission: No
[2017-10-19] MEDS: VANCOMYCIN 1,500 MG in 0.9 % SODIUM CHLORIDE 500 ML IV SCH ×2 (10:45→20:52)
--- NOTE | 2017-10-19 13:20 | Internal Med Progress Note ---
Medical - PN: Subj Patient information: Note initiated : 10/19/17 at 1:18 pm Service Date, if different from initiated Date: [] Patient: Neal Bolaños 62 y/o M admitted on 10/14/17 for AFib, Sepsis, Spontaneous Bacterial Peritonitis. Chief Complaint: [] Interval history: Mr. 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 Sister at bedside. WBC continues to rise (15 today) and recent CXR shows bilateral infiltrates consistent with aspiration pneumonia). Cipro was D/c'd due to lack of evidence of SBP, but WBC increasing. Mild abdominal pain. Per nursing, pt has been agitated, requesting cigarettes and beer. Lost 10lbs since yesterday. Tolerating diuretic therapy without renal insufficiency. Bilirubin stabilizing at 4.6. Having some trouble with constipation but was recently started on lactulose. wt down an additional 15lbs. - Constitutional Vitals: Vital Signs Temp Pulse Resp BP Pulse Ox 98.8 F 86 16 118/75 96 10/19/17 12:00 10/19/17 12:00 10/19/17 12:00 10/19/17 12:00 10/19/17 07:34 Period Temp Pulse Resp BP Sys/[place] Pulse Ox Last 24 Hr 97.9 F-99 F 83-98 16-20 114-180/71-84 95-96 Intake and Output 10/18/17 10/19/17 10/19/17 21:59 05:59 13:59 Intake Total 690 / 690 1750 / 1750 790 / 790 Output Total 1140 / 1140 1100 / 1100 1110 / 1110 Balance -450 / -450 650 / 650 -320 / -320 Weight 166 lb 4.8 oz Intake & Output: Intake & Output 10/18/17 10/19/17 10/19/17 21:59 05:59 13:59 Intake Total 690 / 690 1750 / 1750 790 / 790 Output Total 1140 / 1140 1100 / 1100 1110 / 1110 Balance -450 / -450 650 / 650 -320 / -320 Weight 166 lb 4.8 oz Intake: IV 50 / 50 550 / 550 50 / 50 Zosyn 3.375 gm In Dextrose 5% 50 / 50 50 / 50 50 / 50 in Water 50 ml @ 100 mls/hr IV Q6H [facility] Rx#:[id number] Vancomycin 1,500 mg In Sodium 500 / 500 Chloride 0.9% 500 ml @ 333.3 mls/hr IV Q12H [facility] Rx#: [id number] Oral 640 / 640 1200 / 1200 740 / 740 Output: Void Amount 1140 / 1140 1100 / 1100 1110 / 1110 Other: Meal Dinner Lunch Percent of Meal Consumed 100% 100% General appearance: average body habitus Exam: mildly jaundiced, sleepy but responds appropriately to questions - Head Head exam: Present: atraumatic - Respiratory Respiratory exam: Present: normal respiratory exam, CTAB - Cardiovascular Cardiovascular exam: Present: normal rate and rhythm Additional comments: no dependent edema - GI/Abdominal GI/Abdominal exam: Present: normal bowel sounds, tenderness Additional comments: rounded abdomen with ascites. Mild tenderness on exam. No erythema or drainage at paracenteses sites. Medical - PN: Obj Da - Labs CBC & Chem 7: 10/19/17 04:00 10/19/17 04:00 Labs: Abnormal Lab Results 10/19/17 10/19/17 10/18/17 04:00 04:00 03:30 WBC 15.7 H 13.4 H RBC 3.44 L 3.33 L Hgb 12.7 L 12.2 L Hct 37.5 L 36.6 L MCV 108.9 H 110.0 H MCH 37.0 H 36.7 H RDW 15.8 H 15.4 H Plt Count 114 L 101 L MPV 11.3 H 11.8 H [place] % (Auto) 14.0 H Eos % (Auto) 9.8 H [place] # (Auto) 1.9 H Eos # (Auto) 1.3 H Reactive Lymphocytes 3 H Platelet Estimate Decreased A RBC Morphology Abnorm A Anisocytosis 1+ A Macrocytosis 3+ A Target Cells 1+ A [place] Bodies Occ A Carbon Dioxide 20 L Calcium Total Bilirubin 4.6 H Direct Bilirubin 2.2 H GGT 84 H AST 88 H ALT 52 H Alkaline Phosphatase 124 H Lactate Dehydrogenase 284 H Total Protein Globulin [facility] Screen 10/18/17 10/17/17 10/17/17 03:30 03:35 03:35 WBC 14.1 H RBC 2.97 L Hgb 10.9 L Hct 32.3 L MCV 108.8 H MCH 36.8 H RDW 14.9 H Plt Count 84 L MPV 11.9 H [place] % (Auto) 17.0 H Eos % (Auto) [place] # (Auto) 2.4 H Eos # (Auto) 0.9 H Reactive Lymphocytes Platelet Estimate RBC Morphology Anisocytosis Macrocytosis Target Cells [place] Bodies Carbon Dioxide Calcium Total Bilirubin 4.9 H Direct Bilirubin 2.3 H GGT 79 H AST 72 H ALT 44 H Alkaline Phosphatase 120 H Lactate Dehydrogenase 284 H Total Protein Globulin [facility] Screen Pos 1:80 or greater A 10/17/17 03:35 WBC RBC Hgb Hct MCV MCH RDW Plt Count MPV [place] % (Auto) Eos % (Auto) [place] # (Auto) Eos # (Auto) Reactive Lymphocytes Platelet Estimate RBC Morphology Anisocytosis Macrocytosis Target Cells [place] Bodies Carbon Dioxide Calcium 8.2 L Total Bilirubin 5.0 H Direct Bilirubin 2.1 H GGT 68 H AST 69 H ALT Alkaline Phosphatase Lactate Dehydrogenase Total Protein 5.2 L Globulin 1.8 L [facility] Screen Meds: Medications Acetaminophen (Tylenol) 500 mg PO Q6HP PRN PRN Reason: PAIN/FEVER > 101 Last Admin: 10/16/17 20:35 Dose: 500 mg Albuterol Sulfate (Ventolin) 2.5 mg NEB Q4HRT PRN PRN Reason: Shortness Of Breath Or Wheezing Amiloride HCl (Amiloride) 20 mg PO BID [facility] Last Admin: 10/19/17 09:13 Dose: 20 mg Ciprofloxacin (Cipro) 500 mg PO DAILY [facility] Clonidine HCl (Catapres) 0.1 mg PO Q4HP PRN PRN Reason: Alcohol Withdrawal Docusate Sodium (Colace) 100 mg PO BID PRN PRN Reason: Constipation Last Admin: 10/16/17 20:34 Dose: 100 mg Folic Acid (Folic Acid) 1 mg PO DAILY [facility] Last Admin: 10/19/17 09:13 Dose: 1 mg Furosemide (Lasix) 40 mg PO DAILY [facility] Last Admin: 10/19/17 09:13 Dose: 40 mg Heparin Sodium (Porcine) (Heparin) 5,000 unit SQ Q12 [facility] Last Admin: 10/19/17 09:13 Dose: 5,000 unit Piperacillin Sod/Tazobactam (Sod 3.375 gm/ Dextrose) 50 mls @ 100 mls/hr IV Q6H [facility] Last Admin: 10/19/17 12:26 Dose: 100 mls/hr Vancomycin HCl 1,500 mg/ (Sodium Chloride) 500 mls @ 333.3 mls/hr IV Q12H [facility] Last Admin: 10/19/17 10:45 Dose: 333 mls/hr Iron Carb/Multivit/[place]/Folic Acid (Multivitamin W/Minerals) 1 tab PO DAILY [facility] Last Admin: 10/19/17 09:13 Dose: 1 tab Lactulose (Cephulac) 10 gm PO DAILY [facility] Last Admin: 10/19/17 09:14 Dose: 10 gm Lorazepam (Ativan) 0 mg IV Q4HP PRN; Protocol PRN Reason: Alcohol Withdrawal Lorazepam (Ativan) 0.5 mg IV Q4HP PRN PRN Reason: ANXIETY/SEDATION Last Admin: 10/17/17 22:50 Dose: 0.5 mg Magnesium Hydroxide (Milk Of Magnesia) 30 ml PO DAILYP PRN PRN Reason: Constipation Last Admin: 10/17/17 04:59 Dose: 30 ml Morphine Sulfate (Morphine) 2 mg IV Q2HP PRN PRN Reason: PAIN LEVEL > 6 Last Admin: 10/19/17 05:31 Dose: 2 mg Naloxone HCl (Narcan) 0.1 mg IV Q2MIN PRN PRN Reason: Opiate Reversal Nicotine (Nicoderm) 14 mg TOPICAL DAILY@1000 [facility] Last Admin: 10/19/17 09:18 Dose: 14 mg Ondansetron HCl (Zofran) 4 mg IV Q4-6HP PRN PRN Reason: Nausea And Vomiting Oxycodone HCl (Roxicodone) 5 mg PO Q4HP PRN PRN Reason: Pain Last Admin: 10/19/17 10:44 Dose: 5 mg Pantoprazole Sodium (Protonix) 40 mg IV QAMAC [facility] Last Admin: 10/19/17 07:40 Dose: 40 mg Budesonide/Formoterol Fumarate [Symbicort] 80-4.5 Mcg Inhaler 2 dose INH BID [facility] Last Admin: 10/19/17 07:50 Dose: 2 dose Sodium Chloride (Saline Flush) 10 ml IV Q8 [facility] Last Admin: 10/19/17 05:38 Dose: 10 ml Thiamine HCl (Vitamin B1) 100 mg IM DAILY [facility] Last Admin: 10/19/17 09:13 Dose: 100 mg Vancomycin HCl (Vancomycin Per Pharmacy) 1 order IV UD [facility] Medical - PN: A/P - Time Spent With Patient Total time spent is greater than 50% in coordination of care (as documented) at patient's floor/unit and/or counseling patient: 15 - 24 minutes (1) Ascites due to alcoholic cirrhosis Status: Acute Assessment and plan: Continue diuretic therapy. Discussed resuming cipro 500mg daily for SBP prophylaxis. Liver function appears to be stabilizing. Current Visit: Yes (2) Hepatitis C Status: Acute Assessment and plan: HCV PCR RNA and genotype pending. Current Visit: Yes (3) Encephalopathy Status: Acute Assessment and plan: Titrate lactulose dose to achieve 2-4 loose BMs/day. Current Visit: Yes (4) Liver mass, left lobe Status: Acute Assessment and plan: Will continue surveillance with imaging and AFP over next 3 months. Current Visit: Yes Medical - PN: Qual - VTE Deep Vein Thrombosis/Pulmonary Embolism Present on Admission: No
[2017-10-19] MEDS ORDERED: LIDOCAINE PATCH TOPICAL SCH (15:21)
[2017-10-19] MEDS ORDERED: cloNIDine HCL 0.1 MG TABLET PO PRN (15:21)
[2017-10-19] MEDS ORDERED: ONDANSETRON 4 MG/2 ML VIAL IV PRN (15:21)
[2017-10-19] MEDS ORDERED: NALOXONE HCL 0.4 MG/ML VIAL IV PRN (15:21)
[2017-10-19] MEDS ORDERED: ACETAMINOPHEN 500 MG TABLET PO PRN (15:21)
[2017-10-19] MEDS ORDERED: LORazepam 0.5 MG TABLET PO PRN (15:21)
[2017-10-19] MEDS ORDERED: MAGNESIUM HYDROXIDE 30 ML ORAL.SUSP PO PRN (15:21)
[2017-10-19] MEDS ORDERED: VANCOMYCIN PER PHARMACY IV SCH (15:21)
[2017-10-19] MEDS ORDERED: ALBUTEROL SULFATE 2.5 MG/3 ML NEBULIZER NEB PRN (15:21)
[2017-10-19] MEDS: LIDOCAINE PATCH TOPICAL SCH (15:42)
[2017-10-20] MEDS: oxyCODONE HCL 5 MG TABLET PO PRN ×6 (02:40→23:17)
[2017-10-20] MEDS: PIPERACILLIN SODIUM/TAZOBACTAM 3.375 GM in DEXTROSE 5% IN WATER 50 ML IV SCH ×4 (05:27→23:12)
[2017-10-20] MEDS: 0.9 % SODIUM CHLORIDE 10 ML SYRINGE IV SCH ×3 (05:27→21:10)
[2017-10-20 05:52] LABS: Basophils # (Auto) 0.1 K/mcL (0.0-0.3); Basophils % (Auto) 0.9 % (0.0-2.0); Eosinophils # (Auto) 1.2 K/mcL (0.0-0.7); Eosinophils % (Auto) 9.7 % (0.0-7.0); Granulocytes % (Auto) 33.2 % (38.0-78.0); Lymphocytes # (Auto) 4.2 K/mcL (1.5-4.8); Lymphocytes % (Auto) 33.2 % (15.5-49.0); Mean Cell Volume 107.5 fL (80.0-100.0); Mean Corpuscular HGB Conc 33.8 g/dL (31.0-36.0); Mean Corpuscular Hemoglobin 36.3 pg (26.0-34.0); Monocytes # (Auto) 2.9 K/mcL (0.1-0.9); Platelet Count 110 K/mcL (140-440); RBC 3.33 M/mcL (4.50-5.90)
[2017-10-20] MEDS: PANTOPRAZOLE 40 MG PACKET PO SCH (06:43)
[2017-10-20 07:00] LABS: ALT/SGPT 53 U/l (0-40); Albumin 3.5 gm/dL (3.2-5.2); Albumin/Globulin Ratio 1.6 (1.0-2.3); Alkaline Phosphatase 118 U/L (39-117); Bilirubin,Direct 1.9 mg/dL (0.0-0.3); Blood Urea Nitrogen 10 mg/dl (6-20); Gamma Glutamyl Transpeptidase 74 U/L (8-61)
[2017-10-20] MEDS ORDERED: LACTULOSE 20 GM/30 ML ORAL.SOL PO SCH (09:00)
[2017-10-20] MEDS ORDERED: CIPROFLOXACIN 500 MG TABLET PO SCH (09:00)
[2017-10-20] MEDS: VANCOMYCIN 1,500 MG in 0.9 % SODIUM CHLORIDE 500 ML IV SCH ×2 (09:10→21:08)
[2017-10-20] MEDS: aMILoride 5 MG TABLET PO SCH ×2 (09:14→21:09)
[2017-10-20] MEDS: MULTIVIT,THER IRON,CA,FA & MIN 1 TABLET PO SCH (09:15)
[2017-10-20] MEDS: FOLIC ACID 1 MG TABLET PO SCH (09:15)
[2017-10-20] MEDS: FUROSEMIDE 40 MG TABLET PO SCH (09:15)
[2017-10-20] MEDS: CIPROFLOXACIN 500 MG TABLET PO SCH (09:15)
[2017-10-20] MEDS: HEPARIN 5,000 UNIT/ML VIAL SQ SCH ×2 (09:16→21:09)
[2017-10-20] MEDS: THIAMINE 100 MG/ML VIAL IM SCH (09:16)
[2017-10-20] MEDS: Budesonide/Formoterol Fumarate [Symbicort] 80-4.5 mcg Inhaler INH SCH ×2 (09:24→21:15)
[2017-10-20] MEDS: LIDOCAINE PATCH TOPICAL SCH (09:49)
[2017-10-20] MEDS: NICOTINE 14 MG PATCH TOPICAL SCH (09:54)
--- NOTE | 2017-10-20 11:01 | Internal Med Progress Note ---
Medical - PN: Subj Patient information: Note initiated : 10/20/17 at 11:01 am Service Date, if different from initiated Date: [] Patient: Neal Bolaños 62 y/o M admitted on 10/14/17 for AFib, Sepsis, Spontaneous Bacterial Peritonitis. Chief Complaint: [] Interval history: October 14, 2017: History of present illness: Mr. Bolaños is a 62 year old with a past history of alcohol and tobacco abuse and hepatitis C. He also has chronic back pain, and underwent back surgery for what sounds like a discectomy about 2-1/2 weeks ago. When he saw his surgeon in follow-up, he complained that his abdomen was getting more and more distended , and that he was having abdominal pain that was radiating into his back. His surgeon strongly recommended that he see his PCP today, which he did. He was then referred to the emergency room for further evaluation. The patient had somewhat altered mental status on arrival. He was also found to be in A. fib with a rate of 170. Extremities were a bit mottled. Paracentesis was performed and showed turbid fluid, consistent with probable spontaneous bacterial peritonitis, cirrhosis with ascites. Elevated lactic acid was consistent with sepsis. The patient is now admitted for further workup and management. He and his deny that he has had recent fever or chills. He believes he has had abdominal swelling for about 1 month now. He was told of hepatitis C 10 years or so ago and told that he had liver damage, but does not have any follow-up for his liver health. He denies headaches or dizziness new eye or ear changes, sore throat or cough. He describes lower sternal chest pain in addition to epigastric pain today, which seems to be radiating towards his back between his shoulder blades. He has had increased shortness of breath since yesterday and worse today. He denies diaphoresis. He says he did vomit once in the emergency room today, and that was just clear fluid. He has diffuse abdominal pain. The pain did seem to improve after they took off about a liter of fluid in the emergency room. He denies palpitations, orthopnea, hematemesis, nausea. He does say that he is been struggling with some constipation which he blames on his pain medications. He denies dysuria. October 15: The patient thinks she is feeling a bit better today. However he still having moderate abdominal discomfort related to abdominal distention. Unfortunately, he appears to have gained about 5 pounds since admission. He denies fever chills, chest pain or palpitations. He does not have shortness of breath, but notes his abdomen seems to create a lot of pressure in his chest area as well. He had declined Chamberlain catheter last night, but had great difficulty emptying his bladder, so Chamberlain catheter was placed. He is continuing to have significant mid back pain. He says he thinks oral oxycodone works better for him than IV morphine. He is concerned that he may have constipation. He was up with physical therapy today, and continues to need moderate assistance for all mobility. Occupational Therapy also notes the patient has decreased cognition and coordination. He is requiring 5 L of oxygen to keep his O2 saturations above 90%. October 16: Today, the patient notes he is still having significant flank pain and still feels quite weak. Otherwise he thinks overall he is improved. He is having a little bit less pressure in his lower chest upper epigastric area. He denies fever chills, chest pain or palpitations significant shortness of breath, nausea or vomiting, diarrhea or constipation. He was seen by GI this morning, and they agree with IV albumin and paracentesis. They have also ordered some other studies to follow-up on his history of hepatitis C, and changed his diuretics around a little bit. Patient did have a low-grade fever this morning. Cultures so far have been negative. Peritoneal fluid will be recultured today. October 17: Today, the patient continues to complain of low back pain, and frequently requests oxycodone. He was more sedated and confused this morning, but became more alert as the day wore on. He states he really did not sleep well, and notes he has chronic insomnia at home. I mentioned to him that alcohol tends to make that worse. He says overall he definitely feels better than when he was admitted. So far he is tolerating oral diuretics. Chamberlain catheter was removed this morning. He denies fever chills, chest pain or shortness of breath, nausea or vomiting or diarrhea. October 18: Yesterday's chest x-ray did show bilateral upper lobe infiltrates, worrisome for aspiration pneumonia. The patient was already being covered with Zosyn, but vancomycin was added so this could be treated as HCAP. Ciprofloxacin was discontinued as it appears currently that he does not have SBP. Patient denies fever or chills, cough or shortness of breath. He continues to have issues with low back discomfort and occasional right upper quadrant discomfort, which is managed fairly well with oxycodone. Nurses note he has gotten a little more agitated over the last day or so, and more demanding of cigarettes. Otherwise, the patient notes that he continues to struggle with mild constipation. Lactulose was added today. He denies chest pain or palpitations , nausea or vomiting, diarrhea, dysuria. October 19: Today, the patient says he is feeling reasonably well. He continues to have significant low back pain, which she had hoped his recent disc surgery would address. He says it did take away the pain in his leg, but now the low back pain seems worse. He also continues to have mild lower abdominal discomfort that radiates up into his flanks, likely related to his ascites. Chest x-ray indicates pneumonia, the patient continues to deny fever chills, cough, shortness of breath. White blood cell count bumped up today, for uncertain reasons. The only change since yesterday was that we stop ciprofloxacin. He continues on Zosyn and vancomycin. Otherwise, he denies fever or chills, sore throat, swollen glands, chest pain or palpitations, shortness of breath, nausea or vomiting, diarrhea. He still feels mildly constipated. He denies dysuria, but is urinating frequently since being started on the diuretics. Nurses note he is a little confused at times, likely due to the frequent pain medications that he requests. October 20: Today, the patient says overall he feels improved, and is pleased with his fluid and weight loss, but is continuing to have quite significant low back pain at the site of his previous surgery. He says it feels puffy and sore. He is frequently asking for pain medications. He is not sure that the Lidoderm patch helped at all. I did touch base with Dr. Monge, and he recommended an MRI of his spine. White blood cell count is improved today. It is not certain if it was because we added back the oral Cipro for his SBP prophylaxis. He thinks he is still mildly constipated. - Constitutional Vitals: Vital Signs Temp Pulse Resp BP Pulse Ox 98.0 F 90 14 128/74 94 10/20/17 07:12 10/20/17 03:47 10/20/17 07:12 10/20/17 07:12 10/20/17 07:19 Period Temp Pulse Resp BP Sys/[place] Pulse Ox Last 24 Hr 97.7 F-98.8 F 78-90 12-20 118-150/66-90 94-98 Intake and Output 10/19/17 10/20/17 10/20/17 21:59 05:59 13:59 Intake Total 230 / 230 1400 / 1400 Output Total 1760 / 1760 350 / 350 Balance -1530 / -1530 1050 / 1050 Weight 158 lb Intake & Output: Intake & Output 10/19/17 10/20/17 10/20/17 21:59 05:59 13:59 Intake Total 230 / 230 1400 / 1400 Output Total 1760 / 1760 350 / 350 Balance -1530 / -1530 1050 / 1050 Weight 158 lb Intake: IV 50 / 50 600 / 600 Zosyn 3.375 gm In Dextrose 5% 50 / 50 100 / 100 in Water 50 ml @ 100 mls/hr IV Q6H ANNELIESE Rx#:[id number] Vancomycin 1,500 mg In Sodium 500 / 500 Chloride 0.9% 500 ml @ 333.3 mls/hr IV Q12H ANNELIESE Rx#: [id number] Oral 180 / 180 800 / 800 Output: Void Amount 1760 / 1760 350 / 350 Other: # Voids 3 # Bowel Movements 1 He seems fairly alert. Intake and output since admission show that he is negative about 2850 mL. Weight on arrival was 187 pounds, went up to 192, and since has dropped to 158pounds Neck is supple without obvious JVD. Cardiac exam shows regular rate and rhythm. Lungs have decreased breath sounds at the bases, but are otherwise clear. Abdomen is quite protuberant and distended. Abdomen is less tender. Examination of his lumbar area shows a fairly well-healed scar. It is a little puffy and tender, but not red or warm and there is no obvious drainage Extremities show about 1+ pitting edema. Neurologic exam: The patient seems a little more alert this morning. Medical - PN: Obj Da - Labs CBC & Chem 7: 10/20/17 04:35 10/20/17 04:35 Labs: Abnormal Lab Results 10/20/17 10/20/17 10/20/17 04:35 04:35 04:35 WBC 12.6 H RBC 3.33 L Hgb 12.1 L Hct 35.8 L MCV 107.5 H MCH 36.3 H RDW 15.0 H Plt Count 110 L MPV 10.8 H Gran % 33.2 L Kimball % (Auto) 23.0 H Eos % (Auto) 9.7 H Kimball # (Auto) 2.9 H Eos # (Auto) 1.2 H Reactive Lymphocytes Platelet Estimate RBC Morphology Anisocytosis Macrocytosis Target Cells Goodrich-Wagner Bodies Carbon Dioxide 20 L Creatinine 0.6 L Total Bilirubin 3.9 H Direct Bilirubin 1.9 H GGT 74 H AST 85 H ALT 53 H Alkaline Phosphatase 118 H Ammonia 68 H Lactate Dehydrogenase 253 H Total Protein 5.7 L CHRISTIAN Screen 10/19/17 10/19/17 10/18/17 04:00 04:00 03:30 WBC 15.7 H 13.4 H RBC 3.44 L 3.33 L Hgb 12.7 L 12.2 L Hct 37.5 L 36.6 L MCV 108.9 H 110.0 H MCH 37.0 H 36.7 H RDW 15.8 H 15.4 H Plt Count 114 L 101 L MPV 11.3 H 11.8 H Gran % Kimball % (Auto) 14.0 H Eos % (Auto) 9.8 H Kimball # (Auto) 1.9 H Eos # (Auto) 1.3 H Reactive Lymphocytes 3 H Platelet Estimate Decreased A RBC Morphology Abnorm A Anisocytosis 1+ A Macrocytosis 3+ A Target Cells 1+ A Goodrich-Wagner Bodies Occ A Carbon Dioxide 20 L Creatinine Total Bilirubin 4.6 H Direct Bilirubin 2.2 H GGT 84 H AST 88 H ALT 52 H Alkaline Phosphatase 124 H Ammonia Lactate Dehydrogenase 284 H Total Protein CHRISTIAN Screen 10/18/17 10/17/17 03:30 03:35 WBC RBC Hgb Hct MCV MCH RDW Plt Count MPV Gran % Kimball % (Auto) Eos % (Auto) Kimball # (Auto) Eos # (Auto) Reactive Lymphocytes Platelet Estimate RBC Morphology Anisocytosis Macrocytosis Target Cells Goodrich-Wagner Bodies Carbon Dioxide Creatinine Total Bilirubin 4.9 H Direct Bilirubin 2.3 H GGT 79 H AST 72 H ALT 44 H Alkaline Phosphatase 120 H Ammonia Lactate Dehydrogenase 284 H Total Protein CHRISTIAN Screen Pos 1:80 or greater A October 17: Urinalysis: Normal. Chest x-ray: IMPRESSION: Moderate right upper lobe infiltrate with probable small infiltrate developing in the left upper lobe. October 16 Peritoneal fluid: Gram stain: Many polys, no organisms seen. October 15: Alpha-fetoprotein is elevated at 80 Peritoneal fluid analysis: 13% neutrophils, 21% lymphocytes, 57 macrophages. Total protein 0.8, albumin 0.4, LDH 49, glucose 110, amylase 26, lipase 21 Echocardiogram: Shows normal left ventricular systolic function with ejection fraction 55%. No wall motion abnormalities. No valvular abnormalities. October 14: Nasal MRSA screen was negative. Lactic acid #1: 5.3; lactic acid #2: 3.4 Peritoneal fluid Gram stain: Shows moderate polys, mononuclear cells, many red blood cells, no organisms. EKG at 10:13 AM: Shows A. fib with a rate of 170, with nonspecific ST-T changes. EKG at 2:39 PM: Shows probable sinus rhythm, although P waves not well visualized. Next CT of the abdomen: IMPRESSION: 1. Moderate cirrhotic changes progressing rapidly over the past two months. There is moderate ascites throughout the abdomen and pelvis. No definite evidence of portal hypertension. 2. 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 It also represent an adenoma, focal nodular hyperplasia, teratoma or even hepatocellular carcinoma. Please correlate with alpha-fetoprotein and suggest ultrasound-guided biopsy 3. Subsegmental atelectasis both lower lobes and tiny bilateral pleural effusions. 4. 16 mm low-attenuation lesion posterior cortex inferior right kidney. Suggest renal ultrasound to determine whether it is a cyst or solid lesion 5. Splenectomy changes Chest x-ray: Shows mild cardiomegaly, mild pulmonary vascular congestion consistent with mild CHF. Small right pleural effusion. Meds: Medications Acetaminophen (Tylenol) 500 mg PO Q6HP PRN PRN Reason: PAIN/FEVER > 101 Albuterol Sulfate (Ventolin) 2.5 mg NEB Q4HRT PRN PRN Reason: Shortness Of Breath Or Wheezing Amiloride HCl (Amiloride) 20 mg PO BID [facility] Last Admin: 10/20/17 09:14 Dose: 20 mg Ciprofloxacin (Cipro) 500 mg PO DAILY [facility] Last Admin: 10/20/17 09:15 Dose: 500 mg Clonidine HCl (Catapres) 0.1 mg PO Q4HP PRN PRN Reason: Alcohol Withdrawal Folic Acid (Folic Acid) 1 mg PO DAILY [facility] Last Admin: 10/20/17 09:15 Dose: 1 mg Furosemide (Lasix) 40 mg PO DAILY [facility] Last Admin: 10/20/17 09:15 Dose: 40 mg Heparin Sodium (Porcine) (Heparin) 5,000 unit SQ Q12 [facility] Last Admin: 10/20/17 09:16 Dose: 5,000 unit Piperacillin Sod/Tazobactam (Sod 3.375 gm/ Dextrose) 50 mls @ 100 mls/hr IV Q6H [facility] Last Infusion: 10/20/17 05:57 Dose: Infused Vancomycin HCl 1,500 mg/ (Sodium Chloride) 500 mls @ 333.3 mls/hr IV Q12H [facility] Last Admin: 10/20/17 09:10 Dose: 333.3 mls/hr Iron Carb/Multivit/[place]/Folic Acid (Multivitamin W/Minerals) 1 tab PO DAILY [facility] Last Admin: 10/20/17 09:15 Dose: 1 tab Lactulose (Cephulac) 10 gm PO DAILY [facility] Last Admin: 10/20/17 09:13 Dose: 10 gm Lidocaine (Lidoderm) 1 patch TOPICAL DAILY@1000 [facility] Last Admin: 10/20/17 09:49 Dose: 1 patch Lorazepam (Ativan) 0.5 mg PO Q4HP PRN PRN Reason: ANXIETY/SEDATION Magnesium Hydroxide (Milk Of Magnesia) 30 ml PO DAILYP PRN PRN Reason: Constipation Last Admin: 10/19/17 20:56 Dose: 30 ml Morphine Sulfate (Morphine) 2 mg IV Q2HP PRN PRN Reason: PAIN LEVEL > 6 Naloxone HCl (Narcan) 0.1 mg IV Q2MIN PRN PRN Reason: Opiate Reversal Nicotine (Nicoderm) 14 mg TOPICAL DAILY@1000 [facility] Last Admin: 10/20/17 09:54 Dose: 14 mg Ondansetron HCl (Zofran) 4 mg IV Q4-6HP PRN PRN Reason: Nausea And Vomiting Oxycodone HCl (Roxicodone) 5 mg PO Q4HP PRN PRN Reason: Pain Last Admin: 10/20/17 09:49 Dose: 5 mg Pantoprazole Sodium (Protonix) 40 mg PO QAMAC [facility] Last Admin: 10/20/17 06:43 Dose: 40 mg Budesonide/Formoterol Fumarate [Symbicort] 80-4.5 Mcg Inhaler 1 dose INH BID [facility] Last Admin: 10/20/17 09:24 Dose: Not Given Sodium Chloride (Saline Flush) 10 ml IV Q8 [facility] Last Admin: 10/20/17 05:27 Dose: 10 ml Thiamine HCl (Vitamin B1) 100 mg IM DAILY [facility] Last Admin: 10/20/17 09:16 Dose: 100 mg Vancomycin HCl (Vancomycin Per Pharmacy) 1 order IV UD [facility] Medical - PN: A/P - Time Spent With Patient Total time spent is greater than 50% in coordination of care (as documented) at patient's floor/unit and/or counseling patient: 25 - 35 minutes (1) Elevated troponin Status: Acute Current Visit: No (2) CHF (congestive heart failure) Status: Acute Current Visit: No (3) Atrial fibrillation Status: Acute Current Visit: No (4) Cirrhosis of liver with ascites Status: Acute Current Visit: No (5) Lactic acid acidosis Status: Acute Current Visit: No (6) SBP (spontaneous bacterial peritonitis) Status: Acute Current Visit: No (7) Sepsis Status: Acute Current Visit: No - Narrative A/P Narrative: #1. Infectious disease/sepsis. Patient presents appearing very ill, with leukocytosis, tachycardia, lactic acidosis. Initial peritoneal fluid analysis was consistent with likely spontaneous bacterial peritonitis, but cultures have not been positive.. - Chest x-ray shows right upper lobe and possible left upper lobe infiltrates. Patient is now on vancomycin to the [facility], for possible healthcare associated pneumonia. Patient denies symptoms. -White blood cell count is higher today, for uncertain reasons. This was reviewed with GI, and they recommended he go back on the suppressive ciprofloxacin to prevent SBP. We will continue to monitor. -Today, leukocytosis is somewhat improved, and absolute neutrophil count is back to normal. Again the cause of this is not entirely clear. Because he had recent back surgery and has ongoing significant pain there, I touch base with Dr. Monge of orthopedics, and he did recommend MRI. #2. Cardiac. Patient presents with dyspnea, and atrial fibrillation with rapid ventricular response, apparently of new onset. Atrial fibrillation resolved. Echocardiogram does not indicate any significant abnormalities. A. fib was likely due to acute illness. -Troponin bumped slightly on admission, but is back to normal .. 3. CODE STATUS: Full code. Patient would not want long-term life support. His will act as his POA. 4. DVT prophylaxis: Use low-dose subcu heparin for now, to keep an eye on his platelets, which are borderline low. 5. History of alcohol abuse. Monitor with CIWA protocol. GI suggested if patient has encephalopathy he is at lower risk for alcohol withdrawal. We will continue to monitor. -Ammonia level is a bit higher today. Scheduled lactulose was added. 6. Tobacco abuse. -NicoDerm patch. Nurses feel he is having more nicotine cravings, so patch was increased to 14 mg. 7. GI. Patient presents with apparent lliver cirrhosis due to chronic alcohol abuse and hepatitis C, with associated ascites, which apparently has been getting quite a bit worse lately. CT scan also shows a liver mass, which could be benign, but may also be malignant. - Alpha-fetoprotein level is elevated, which is worrisome. GI recommends following radiologically. -Peptic ulcer disease prophylaxis with Protonix. -He will likely need to be discharged on a combination of Lasix and spironolactone or amiloride to help manage his ascites. He is status post paracentesis 2. Weight is down about 18 pounds since admission. -Patient has reported history of hepatitis C. Serologies were ordered by GI . 8. Renal. Patient also has a tiny lesion in the right kidney, which might require ultrasound to follow-up further to see if it is a cyst. 9. 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 --be sure he is up-to-date on flu vaccine and Pneumovax. 10. Chronic pain. He apparently has chronic disc issues. Patient continues to complain of fairly severe low back pain, at the site of his recent disc surgery. The site itself looks okay to me, without signs of inflammation or discharge. Continue oral oxycodone, try to limit IV pain medications, regarding mental status. Disposition: The patient's mentions they might be considering moving to the [facility] so that he can be connected with the [facility] for his care. Approximately 30 minutes was spent today, reviewing patient's test results, interviewing and examining him, reviewing plan of care with the patient , as well as staff, and writing orders. Medical - PN: Qual - VTE Deep Vein Thrombosis/Pulmonary Embolism Present on Admission: No
--- NOTE | 2017-10-20 15:39 | Magnetic Resonance Report ---
History: Worsening low back pain, 2 1/2 weeks following discectomy. Technique: Multiplanar imaging was performed using multiple pulse sequences. Gadolinium contrast was injected and sagittal and axial T1-weighted views were repeated. Findings: There is replacement of the bone marrow throughout the lumbar spine and sacrum. This is a chronic stable finding. Patient has a transitional vertebra with partial sacralization of L5. L5-S1 disc space is normal. Postoperative changes are present at L4-5 following recent left side laminotomy. There is enhancement of the epidural tissues along the anterior posterior left lateral margin of the thecal sac. There is also enhancement along the surgical track along the left side of the spinous process. No abscess is seen. The large herniated discs which extended to the left of midline on the preoperative MRI done on 08/07/17 has been resected. However, there is a residual large broad-based bulge which contains an annular tear. There is no evidence of discitis or osteomyelitis. There is moderately severe stenosis the right-sided neural foramen due to bulging disc and spurs. There is moderate stenosis left-sided foramen. This is unchanged from the preoperative study. The remainder of the disc spaces are normal.. No paraspinal mass or abnormal fluid collection are present. Impression: Postoperative changes following recent laminotomy and disc resection at L4-5. There is a persistent or recurrent large broad-based bulge at this level. Interpreted and Authenticated by: David Mathews 10/20/17
[2017-10-20] MEDS: LACTULOSE 20 GM/30 ML ORAL.SOL PO SCH (21:10)
[2017-10-21] MEDS: oxyCODONE HCL 5 MG TABLET PO PRN ×3 (05:07→12:40)
[2017-10-21] MEDS: 0.9 % SODIUM CHLORIDE 10 ML SYRINGE IV SCH ×2 (05:07→13:06)
[2017-10-21] MEDS: PIPERACILLIN SODIUM/TAZOBACTAM 3.375 GM in DEXTROSE 5% IN WATER 50 ML IV SCH ×2 (05:07→12:38)
[2017-10-21 07:15] LABS: ALT/SGPT 67 U/l (0-40); Albumin 3.6 gm/dL (3.2-5.2); Albumin/Globulin Ratio 1.3 (1.0-2.3); Alkaline Phosphatase 134 U/L (39-117); Bilirubin,Direct 1.8 mg/dL (0.0-0.3); Blood Urea Nitrogen 12 mg/dl (6-20); Gamma Glutamyl Transpeptidase 82 U/L (8-61); Uric Acid 4.3 mg/dL (2.5-8.0)
[2017-10-21] MEDS: PANTOPRAZOLE 40 MG PACKET PO SCH (07:29)
[2017-10-21 08:00] LABS: Basophils # (Auto) 0.1 K/mcL (0.0-0.3); Basophils % (Auto) 0.6 % (0.0-2.0); Eosinophils # (Auto) 1.4 K/mcL (0.0-0.7); Eosinophils % (Auto) 11.8 % (0.0-7.0); Granulocytes % (Auto) 31.4 % (38.0-78.0); Lymphocytes % (Auto) 33.3 % (15.5-49.0); Mean Cell Volume 109.9 fL (80.0-100.0); Mean Corpuscular HGB Conc 33.4 g/dL (31.0-36.0); Mean Corpuscular Hemoglobin 36.7 pg (26.0-34.0); Monocytes # (Auto) 2.8 K/mcL (0.1-0.9); Monocytes % (Auto) 22.9 % (1.0-12.0); Platelet Count 126 K/mcL (140-440); RBC 3.56 M/mcL (4.50-5.90); Red Cell Distribution Width 16.2 % (11.5-14.5)
--- NOTE | 2017-10-21 08:34 | XRay Report ---
HISTORY: Reason for Exam:f/u pna , atrial fibrillation, sepsis and spontaneous bacterial peritonitis findings FINDINGS: the bilateral upper lobe infiltrates seen on - have resolved. There is no underlying mass or evidence of adenopathy.. No pleural effusion is present. The heart size and pulmonary vasculature are normal. . IMPRESSION: Resolved pneumonia. Interpreted and Authenticated by: David Mathews 10/21/17
[2017-10-21] MEDS: aMILoride 5 MG TABLET PO SCH (08:49)
[2017-10-21] MEDS: FUROSEMIDE 40 MG TABLET PO SCH (08:51)
[2017-10-21] MEDS: FOLIC ACID 1 MG TABLET PO SCH (08:53)
[2017-10-21] MEDS: CIPROFLOXACIN 500 MG TABLET PO SCH (08:54)
[2017-10-21] MEDS: MULTIVIT,THER IRON,CA,FA & MIN 1 TABLET PO SCH (08:54)
[2017-10-21] MEDS: THIAMINE 100 MG/ML VIAL IM SCH (08:56)
[2017-10-21] MEDS: HEPARIN 5,000 UNIT/ML VIAL SQ SCH (08:56)
[2017-10-21] MEDS: LACTULOSE 20 GM/30 ML ORAL.SOL PO SCH (08:58)
[2017-10-21] MEDS: Budesonide/Formoterol Fumarate [Symbicort] 80-4.5 mcg Inhaler INH SCH (10:30)
[2017-10-21] MEDS: LIDOCAINE PATCH TOPICAL SCH (10:36)
[2017-10-21] MEDS: NICOTINE 14 MG PATCH TOPICAL SCH (10:36)
[2017-10-21] MEDS: VANCOMYCIN 1,500 MG in 0.9 % SODIUM CHLORIDE 500 ML IV SCH (10:41)
[2017-10-21 11:50] LABS: Hepatitis B Core Antibody NON-REACTIVE (NON-REACTIVE)
--- NOTE | 2017-10-21 12:06 | Discharge Summary ---
Medical - DS: Prov Patient information: Note initiated : 10/21/17 at 12:06 pm Service Date, if different from initiated Date: [] Patient: Neal Bolaños 62 y/o M admitted on 10/14/17 for AFib, Sepsis, Spontaneous Bacterial Peritonitis. Chief Complaint: [] Date of admission: 10/14/17 16:15 Discharge date: 10/21/17 Primary care physician: Vitaliy Chen Admitting clinician: Betzaida Garcia Consults: 10/15/17 20:21 Consult to Physician [CONS] Routine Comment: Consulting Provider: Hilario Talbert Reason For Exam: Physician to Consult 10/20/17 07:55 Consult to Physician [CONS] Routine Comment: ongoing lbp after surgery Consulting Provider: Israel Monge Reason For Exam: Physician to Consult Attending physician on discharge: Betzaida Garcia Medical - DS: Meds - Discharge Medications Prescriptions: aMILoride [Amiloride] 20 mg PO BID #60 tab Ciprofloxacin [Cipro] 500 mg PO DAILY #30 tab Cyanocobalamin/FA/Pyridoxine [B Complex-Folic Acid Tablet] 1 each PO DAILY #30 tab Furosemide [Lasix] 40 mg PO DAILY #30 tab Lactulose [Cephulac] 10 gm PO BID #1000 oral.wes Lidocaine [Lidoderm] 1 patch TOPICAL DAILY@1000 #30 patch Multivit,Ther Iron,Ca,FA & Min [Multivitamin W/Minerals] 1 tab PO DAILY #30 tab Nicotine [Nicoderm] 14 mg TD DAILY@1000 #30 patch Pantoprazole [Protonix] 40 mg PO QAMAC #30 tab Active and Home Medications: Discharge medications: Amiloride 20 mg p.o. twice daily Symbicort inhaler (budesonide/formoterol) 1 puff twice daily Ciprofloxacin 500 mg once daily to prevent abdominal infection Multivitamin, one a day, for improved nutrition B complex supplement, 1 a day, to support bone marrow Lasix 40 mg every morning, for abdominal fluid Lactulose 10 g (15 mL) twice a day, order to achieve 2-3 bowel movements per day , for hepatic encephalopathy Lidoderm patch apply 1 to your low back every morning, as needed for ongoing pain. Remove in the evening. Neck is 14 mg a day, to help you with quitting smoking Oxycodone 5 mg every 4 hours as needed uncontrolled back pain Protonix 40 mg each a.m. to help prevent stomach ulcers Please stop your valsartan (Diovan) 80 mg. No longer need this for blood pressure control. Previous home Medications: Valsartan [Diovan] 80 mg PO DAILY 07/12/17 [History Confirmed 10/14/17 Last Taken Unknown] budesonide-formoterol HFA 80 mcg-4.5 mcg/actuation aerosol inhaler 2 puff INHALATION BID 08/12/17 [History Confirmed 10/14/17 Last Taken Unknown] Symbicort 80-4.5 Mcg Inhaler 1 puff PO BID 10/14/17 [History Confirmed 10/14/17 Last Taken Unknown] oxyCODONE HCL [Oxycodone HCl] 5 mg PO Q4HP PRN 10/14/17 [History Confirmed 10/14 Last Taken Unknown] Medical - DS: Hosp Hospital course: Mr. Bolaños is a 62 year old M October 14, 2017: History of present illness: Mr. Bolaños is a 62 year old with a past history of alcohol and tobacco abuse and hepatitis C. He also has chronic back pain, and underwent back surgery for what sounds like a discectomy about 2-1/2 weeks ago. When he saw his surgeon in follow-up, he complained that his abdomen was getting more and more distended , and that he was having abdominal pain that was radiating into his back. His surgeon strongly recommended that he see his PCP today, which he did. He was then referred to the emergency room for further evaluation. The patient had somewhat altered mental status on arrival. He was also found to be in A. fib with a rate of 170. Extremities were a bit mottled. Paracentesis was performed and showed turbid fluid, consistent with probable spontaneous bacterial peritonitis, cirrhosis with ascites. Elevated lactic acid was consistent with sepsis. The patient is now admitted for further workup and management. He and his deny that he has had recent fever or chills. He believes he has had abdominal swelling for about 1 month now. He was told of hepatitis C 10 years or so ago and told that he had liver damage, but does not have any follow-up for his liver health. He denies headaches or dizziness new eye or ear changes, sore throat or cough. He describes lower sternal chest pain in addition to epigastric pain today, which seems to be radiating towards his back between his shoulder blades. He has had increased shortness of breath since yesterday and worse today. He denies diaphoresis. He says he did vomit once in the emergency room today, and that was just clear fluid. He has diffuse abdominal pain. The pain did seem to improve after they took off about a liter of fluid in the emergency room. He denies palpitations, orthopnea, hematemesis, nausea. He does say that he is been struggling with some constipation which he blames on his pain medications. He denies dysuria. October 15: The patient thinks she is feeling a bit better today. However he still having moderate abdominal discomfort related to abdominal distention. Unfortunately, he appears to have gained about 5 pounds since admission. He denies fever chills, chest pain or palpitations. He does not have shortness of breath, but notes his abdomen seems to create a lot of pressure in his chest area as well. He had declined Chamberlain catheter last night, but had great difficulty emptying his bladder, so Chamberlain catheter was placed. He is continuing to have significant mid back pain. He says he thinks oral oxycodone works better for him than IV morphine. He is concerned that he may have constipation. He was up with physical therapy today, and continues to need moderate assistance for all mobility. Occupational Therapy also notes the patient has decreased cognition and coordination. He is requiring 5 L of oxygen to keep his O2 saturations above 90%. ................... October 20: Today, the patient says overall he feels improved, and is pleased with his fluid and weight loss, but is continuing to have quite significant low back pain at the site of his previous surgery. He says it feels puffy and sore. He is frequently asking for pain medications. He is not sure that the Lidoderm patch helped at all. I did touch base with Dr. Monge, and he recommended an MRI of his spine. White blood cell count is improved today. It is not certain if it was because we added back the oral Cipro for his SBP prophylaxis. He thinks he is still mildly constipated. October 21: Hospital course: -The patient was evaluated by Dr. Antonio and Felecia Aguilar of gastroenterology. He was diagnosed with decompensated liver cirrhosis due to alcohol abuse and hepatitis C. He had paracentesis 2. Fluid analysis was not really consistent with spontaneous bacterial peritonitis, but given that he is at high risk for this, he was started on oral ciprofloxacin. He was also started on an aggressive regimen of amiloride plus Lasix, and has diuresed quite a bit. Admission weight was 182 pounds, and today's weight is 156 pounds. This is probably much closer to his ideal weight. -The patient has been feeling quite a bit better over the last couple of days, and has been asking to go home. However he did develop an increased white blood cell count, and chest x-ray showed bilateral upper lobe infiltrates, so he was started on Zosyn and vancomycin. Follow-up chest x-ray this morning showed resolution of his infiltrates. He has continued to deny any symptoms of pneumonia. -He was placed on a CIWA protocol for his alcoholism. He did not have severe symptoms of alcohol withdrawal, and is no longer requiring Ativan. -He was given a NicoDerm patch to help deal with his nicotine dependence. -He presented with atrial fibrillation with rapid ventricular response, but this resolved after treatment in the emergency room. Echocardiogram did not show any significant abnormalities. His troponin was borderline abnormal, but follow-up was normal. Today, he reports he is feeling pretty well. He continues to struggle with low back pain, related to chronic pain and recent disc surgery. He did have a follow-up MRI of his spine yesterday, and this still shows a bulging disc, but does not show signs of infection. He denies fever chills, chest pain or cough or shortness of breath, abdominal pain, nausea or vomiting, diarrhea or constipation or dysuria. Exam He seems fairly alert. Intake and output since admission show that he is negative about 2125 mL. Weight on arrival was 187 pounds, went up to 192, and since has dropped to 158pounds Neck is supple without obvious JVD. Cardiac exam shows regular rate and rhythm. Lungs have decreased breath sounds at the bases, but are otherwise clear. Abdomen is quite protuberant and distended. Abdomen is less tender. Examination of his lumbar area shows a fairly well-healed scar. It is a little puffy and tender, but not red or warm and there is no obvious drainage Extremities show trace pitting edema. Neurologic exam: The patient seems a little more alert this morning. Assessment and plan: #1. Infectious disease/sepsis. Patient presents appearing very ill, with leukocytosis, tachycardia, lactic acidosis. Initial peritoneal fluid analysis was consistent with likely spontaneous bacterial peritonitis, but cultures have not been positive.. - Chest x-ray shows right upper lobe and possible left upper lobe infiltrates. Patient is status post treatment with vancomycin and Zosyn, as well as oral Cipro for SBP prophylaxis. Overall he is much improved. Because he had recent back surgery and has ongoing significant pain there, Idid touch base with Dr. Monge of orthopedics, and he did recommend MRI. This did not show any signs of infection. #2. Cardiac. Patient presents with dyspnea, and atrial fibrillation with rapid ventricular response, apparently of new onset. Atrial fibrillation resolved. Echocardiogram does not indicate any significant abnormalities. A. fib was likely due to acute illness. -Troponin bumped slightly on admission, but is back to normal .. 3. CODE STATUS: Full code. Patient would not want long-term life support. His will act as his POA. 4. DVT prophylaxis: Use low-dose subcu heparin for now, to keep an eye on his platelets, which are borderline low. 5. History of alcohol abuse. Monitored with CIWA protocol. GI suggested if patient has encephalopathy he is at lower risk for alcohol withdrawal. . Scheduled lactulose was added. 6. Tobacco abuse. -NicoDerm patch. Nurses feel he is having more nicotine cravings, so patch was increased to 14 mg. 7. GI. Patient presents with apparent lliver cirrhosis due to chronic alcohol abuse and hepatitis C, with associated ascites, which apparently has been getting quite a bit worse lately. CT scan also shows a liver mass, which could be benign, but may also be malignant. - Alpha-fetoprotein level is elevated, which is worrisome. GI recommends following radiologically. -Peptic ulcer disease prophylaxis with Protonix. -He will be discharged on a combination of Lasix and amiloride to help manage his ascites. He is status post paracentesis 2. Weight is down about 18 pounds since admission. -Patient has reported history of hepatitis C. Serologies were ordered by GI . 8. Renal. Patient also has a tiny lesion in the right kidney, which might require ultrasound to follow-up further to see if it is a cyst. 9. 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 --be sure he is up-to-date on flu vaccine and Pneumovax. 10. Chronic pain. He apparently has chronic disc issues. Patient continues to complain of fairly severe low back pain, at the site of his recent disc surgery. The site itself looks okay to me, without signs of inflammation or discharge. Continue oral oxycodone, try to limit IV pain medications, regarding mental status. Disposition: The patient's mentions they might be considering moving to the [facility] so that he can be connected with the [facility] for his care. Approximately 40 minutes was spent today, reviewing patient's test results, interviewing and examining him, reviewing plan of care with the patient , as well as staff, and writing orders. Discharge diagnosis: Decompensated cirrhosis with ascites. Ammonia. Alcohol dependence. - Time Spent with Patient Total time spent providing and/or coordinating discharge services: Greater than 30 minutes Medical - DS: Exam - Constitutional Vitals: Vital Signs Temp Pulse Pulse Resp BP Pulse Ox 10/21/17 12:02 97.5 F 12 104/60 97 10/21/17 07:44 97.8 F 86 18 132/76 98 10/21/17 07:20 98 10/21/17 07:08 86 18 10/21/17 05:10 97.5 F 85 16 123/76 95 10/20/17 23:20 97.6 F 89 16 144/87 97 10/20/17 20:00 97.9 F 82 12 117/75 99 10/20/17 16:00 98.4 F 14 125/72 95 Intake and Output 10/20/17 10/21/17 10/21/17 21:59 05:59 13:59 Intake Total 50 / 50 1050 / 1050 Output Total 925 / 925 Balance 50 / 50 125 / 125 Intake: IV 50 / 50 600 / 600 Zosyn 3.375 gm In Dextrose 5% 50 / 50 100 / 100 in Water 50 ml @ 100 mls/hr IV Q6H ANNELIESE Rx#:[id number] Vancomycin 1,500 mg In Sodium 500 / 500 Chloride 0.9% 500 ml @ 333.3 mls/hr IV Q12H ANNELIESE Rx#: [id number] Oral 450 / 450 Output: Void Amount 925 / 925 Other: Meal Breakfast Percent of Meal Consumed 100% Feeding Ability Independent # Voids 1 Weight 156 lb 8 oz Medical - DS: Data Labs on day of discharge: Labs from last 24 hours 10/21/17 10/21/17 10/21/17 08:04 05:58 05:58 WBC RBC Hgb Hct MCV MCH MCHC RDW Plt Count MPV Gran % Lymph % (Auto) [place] % (Auto) Eos % (Auto) Baso % (Auto) Gran # Lymph # (Auto) [place] # (Auto) Eos # (Auto) Baso # (Auto) Sodium 138 Potassium 4.5 Chloride 104 Carbon Dioxide 23 Anion Gap 11.0 BUN 12 Creatinine 0.9 GFR Calculation 93 Glucose 86 Uric Acid 4.3 Calcium 9.1 Phosphorus 3.9 Magnesium 2.0 Total Bilirubin 3.7 H Direct Bilirubin 1.8 H GGT 82 H AST 101 H ALT 67 H Alkaline Phosphatase 134 H Ammonia 38 Lactate Dehydrogenase 278 H Total Protein 6.3 Albumin 3.6 Globulin 2.7 Albumin/Globulin Ratio 1.3 Triglycerides 61 Vancomycin Trough 15.0 Hep B Core Total Ab 10/21/17 10/17/17 05:58 03:35 WBC 12.0 H RBC 3.56 L Hgb 13.1 L Hct 39.1 L MCV 109.9 H MCH 36.7 H MCHC 33.4 RDW 16.2 H Plt Count 126 L MPV 11.0 H Gran % 31.4 L Lymph % (Auto) 33.3 [place] % (Auto) 22.9 H Eos % (Auto) 11.8 H Baso % (Auto) 0.6 Gran # 3.8 Lymph # (Auto) 4.0 [place] # (Auto) 2.8 H Eos # (Auto) 1.4 H Baso # (Auto) 0.1 Sodium Potassium Chloride Carbon Dioxide Anion Gap BUN Creatinine GFR Calculation Glucose Uric Acid Calcium Phosphorus Magnesium Total Bilirubin Direct Bilirubin GGT AST ALT Alkaline Phosphatase Ammonia Lactate Dehydrogenase Total Protein Albumin Globulin Albumin/Globulin Ratio Triglycerides Vancomycin Trough Hep B Core Total Ab Non-reactive October 17: Urinalysis: Normal. Chest x-ray: IMPRESSION: Moderate right upper lobe infiltrate with probable small infiltrate developing in the left upper lobe. October 16 Peritoneal fluid: Gram stain: Many polys, no organisms seen. October 15: Alpha-fetoprotein is elevated at 80 Peritoneal fluid analysis: 13% neutrophils, 21% lymphocytes, 57 macrophages. Total protein 0.8, albumin 0.4, LDH 49, glucose 110, amylase 26, lipase 21 Echocardiogram: Shows normal left ventricular systolic function with ejection fraction 55%. No wall motion abnormalities. No valvular abnormalities. October 14: Nasal MRSA screen was negative. Lactic acid #1: 5.3; lactic acid #2: 3.4 Peritoneal fluid Gram stain: Shows moderate polys, mononuclear cells, many red blood cells, no organisms. EKG at 10:13 AM: Shows A. fib with a rate of 170, with nonspecific ST-T changes. EKG at 2:39 PM: Shows probable sinus rhythm, although P waves not well visualized. Next CT of the abdomen: IMPRESSION: 1. Moderate cirrhotic changes progressing rapidly over the past two months. There is moderate ascites throughout the abdomen and pelvis. No definite evidence of portal hypertension. 2. 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 It also represent an adenoma, focal nodular hyperplasia, teratoma or even hepatocellular carcinoma. Please correlate with alpha-fetoprotein and suggest ultrasound-guided biopsy 3. Subsegmental atelectasis both lower lobes and tiny bilateral pleural effusions. 4. 16 mm low-attenuation lesion posterior cortex inferior right kidney. Suggest renal ultrasound to determine whether it is a cyst or solid lesion 5. Splenectomy changes Chest x-ray: Shows mild cardiomegaly, mild pulmonary vascular congestion consistent with mild CHF. Small right pleural effusion. Medical - DS: A/P - Patient/Caregiver Discharge Instructions Activity: increase activity as tolerated Diet: Low Sodium (2gm) Additional Instructions: 1. Liver cirrhosis with spontaneous bacterial peritonitis. -Your cirrhosis is causing fluid to leak into your abdomen. We have started you on new medications, amiloride and Lasix, to help remove this fluid. Please take these medications as prescribed. -Please weigh yourself every morning, and if you see your weight creeping up, please notify your doctors right away. -Please follow-up with Dr. Antonio/Felecia Aguilar of gastroenterology as directed. -You have also been started on ciprofloxacin, once a day, to prevent recurrent infection of your abdominal fluid. -Please abstain from all alcohol use from now on, as more alcohol will only damage or liver further. -You also had mild hepatic encephalopathy (confusion). You have been started on lactulose syrup. You should take 1-3 doses a day, to cause 2-3 bowel movements per day. This will help remove ammonia from your system. It will also prevent constipation. -You also have a spot on your liver, which the GI doctors will be following, to be sure that it is not a tumor. -You have also been started on a medicine to help prevent stomach ulcers, as a bleeding ulcer in the setting of liver failure could be catastrophic. 2. Your chest x-ray had indicated early pneumonia. Today's chest x-ray shows this has resolved. 3. Cardiac. On arrival to the emergency room, you had an arrhythmia called atrial fibrillation. This resolved, and your echocardiogram does not show significant heart abnormalities. 4. Health maintenance. -You need to review with your regular doctor that you are up-to-date on both types of pneumonia vaccines, since you do not have a spleen. 5. Tobacco dependence. Please consider continuing the nicotine patch, to help you quit smoking. 6. Renal. You have a tiny spot on your right kidney. You may want to have your regular doctor order a sonogram to get a better look at this. 7. Persistent back pain. Follow-up MRI did not show signs of infection at the site of your recent surgery. Please follow-up with Dr. Monge regarding ongoing pain. Discharge medications: Amiloride 20 mg p.o. twice daily Symbicort inhaler (budesonide/formoterol) 1 puff twice daily Ciprofloxacin 500 mg once daily to prevent abdominal infection Multivitamin, one a day, for improved nutrition B complex supplement, 1 a day, to support bone marrow Lasix 40 mg every morning, for abdominal fluid Lactulose 10 g (15 mL) twice a day, order to achieve 2-3 bowel movements per day , for hepatic encephalopathy Lidoderm patch apply 1 to your low back every morning, as needed for ongoing pain. Remove in the evening. Neck is 14 mg a day, to help you with quitting smoking Oxycodone 5 mg every 4 hours as needed uncontrolled back pain Protonix 40 mg each a.m. to help prevent stomach ulcers Please stop your valsartan (Diovan) 80 mg. No longer need this for blood pressure control. Previous home Medications: Valsartan [Diovan] 80 mg PO DAILY 07/12/17 [History Confirmed 10/14/17 Last Taken Unknown] budesonide-formoterol HFA 80 mcg-4.5 mcg/actuation aerosol inhaler 2 puff INHALATION BID 08/12/17 [History Confirmed 10/14/17 Last Taken Unknown] Symbicort 80-4.5 Mcg Inhaler 1 puff PO BID 10/14/17 [History Confirmed 10/14/17 Last Taken Unknown] oxyCODONE HCL [Oxycodone HCl] 5 mg PO Q4HP PRN 10/14/17 [History Confirmed 10/14 Last Taken Unknown] Prescriptions: aMILoride [Amiloride] 20 mg PO BID #60 tab Ciprofloxacin [Cipro] 500 mg PO DAILY #30 tab Cyanocobalamin/FA/Pyridoxine [B Complex-Folic Acid Tablet] 1 each PO DAILY #30 tab Furosemide [Lasix] 40 mg PO DAILY #30 tab Lactulose [Cephulac] 10 gm PO BID #1000 oral.wes Lidocaine [Lidoderm] 1 patch TOPICAL DAILY@1000 #30 patch Multivit,Ther Iron,Ca,FA & Min [Multivitamin W/Minerals] 1 tab PO DAILY #30 tab Nicotine [Nicoderm] 14 mg TD DAILY@1000 #30 patch Pantoprazole [Protonix] 40 mg PO QAMAC #30 tab - Problem Maintenance (1) Elevated troponin Status: Acute (2) CHF (congestive heart failure) Status: Acute (3) Atrial fibrillation Status: Acute Qualifiers: Atrial fibrillation type: unspecified Qualified Code(s): I48.91 - Unspecified atrial fibrillation (4) Cirrhosis of liver with ascites Status: Acute Qualifiers: Hepatic cirrhosis type: alcoholic cirrhosis Qualified Code(s): K70.31 - Alcoholic cirrhosis of liver with ascites (5) Lactic acid acidosis Status: Acute (6) SBP (spontaneous bacterial peritonitis) Status: Acute (7) Sepsis Status: Acute Qualifiers: Sepsis type: sepsis due to unspecified organism Qualified Code(s): A41.9 - Sepsis, unspecified organism - Follow up Plan Follow up with: Israel Monge MD [Physician] - 12/08/17 8:00 pm (Continue with your previous scheduled appointment. ) Felecia Aguilar ARNP [Nurse Practitioner] - 10/27/17 8:30 am Vitaliy Chen PA-C [Primary Care Provider] - Disposition: Home, Self-Care Prognosis: Good Rehab Potential: Fair I certify that the patient requires SNF services: No Overall status at discharge: patient is progressing back to baseline Medical - DS: Qual - VTE Deep Vein Thrombosis/Pulmonary Embolism Present on Admission: No
== END 2017-10-21 15:34 | disposition home or self-care (01) | DRG 871 ==
LOC: ED 10:20 → ICU 16:15 → MEDSUR 10-19 14:35
PROVIDERS: ADMIT Internal Medicine; ATTEND Internal Medicine

== ENCOUNTER 2020-07-03 08:49 | Observation (INO) ==
[2020-07-03] MEDS ORDERED: IOPAMIDOL 100 ML BOTTLE IV ONE (08:50)
[2020-07-03 09:13] LABS: POC Blood Urea Nitrogen 8 mg/dl (8-23); POC CO2 25 mmol/L (22-30); POC Chloride 104 mmol/L (96-108); POC Creatinine 0.8 mg/dl (0.7-1.2); POC Glucose, Random 112 mg/dL (70-105); POC Potassium 5.1 mmol/L (3.3-5.1); POC Sodium 138 mmol/L (133-145)
--- NOTE | 2020-07-03 09:21 | Cat Scan Report ---
INDICATION: Facial droop, left-sided weakness. History of hepatocellular carcinoma COMPARISON: None. TECHNIQUE: Axial noncontrast-enhanced images through the brain. Sagittally and coronally reformatted images. FINDINGS: Cerebral hemispheres:Negative. No intra-axial abnormality. No intra-axial hematoma. No localized mass effect. Brain volume is within normal limits. No hydrocephalus Brainstem and cerebellum:No intra-axial abnormality Extra-axial:No acute hemorrhage. No subdural or epidural hematoma. No subarachnoid hemorrhage. Basilar cisterns are normal Calvarial:No calvarial fracture. No lytic lesion Temporal bones are negative. No destructive lesions Soft tissue, orbits, sinuses:Orbits and visualized facial soft tissues are grossly normal. IMPRESSION: Negative noncontrast enhanced brain CT scan The exam was performed using radiation dose optimization techniques including, but not limited to, automated exposure control, adjustment of the mA and/or kV according to patient size and use of iterative reconstruction technique. Interpreted and Authenticated by: Cristian Suarez 07/03/20
[2020-07-03 09:37] LABS: Basophils # (Auto) 0.09 K/mcL (0.00-0.30); Basophils % (Auto) 1.3 % (0.0-2.0); Eosinophils # (Auto) 0.18 K/mcL (0.00-0.70); Eosinophils % (Auto) 2.7 % (0.0-7.0); Granulocytes % (Auto) 56.2 % (38.0-78.0); Hematocrit 47.2 % (40.1-51.0); Hemoglobin 16.4 g/dL (13.7-17.5); Lymphocytes # (Auto) 1.53 K/mcL (1.50-4.80); Lymphocytes % (Auto) 22.8 % (15.5-49.0); Mean Corpuscular HGB Conc 34.7 g/dL (31.0-36.0); Mean Platelet Volume 11.6 fL (7.4-10.4); Monocytes # (Auto) 1.14 K/mcL (0.10-0.90); Platelet Count 283 K/mcL (140-440); RBC 4.97 M/mcL (4.63-6.08); Red Cell Distribution Width 14.6 % (11.5-14.5); WBC 6.7 K/mcL (4.50-11.00)
--- NOTE | 2020-07-03 09:43 | Emergency Department Note ---
Neuro HPI General Chief Complaint: Stroke Symptoms Stated Complaint: left arm weakness, left facial droop, speech diffi Time Seen by Provider: 07/03/20 09:37 Source: patient Mode of arrival: ambulatory Limitations: no limitations History of Present Illness HPI Narrative: Narrative: This patient has had a couple of day history of symptoms that made the think he might be having a stroke. She says that occasionally his speech is impaired and she is noticed a left facial droop. The patient describes some shaking of his left arm but not actual weakness. He may have slight occasional numbness to the left cheek. Patient is completely asymptomatic at this time. He does have a history of liver cancer over the last 2 years and did receive chemotherapy for that. He had a 30-year history of hepatitis C and was cured of that with treatment. He is actually planning to have an MRI of his abdomen on Thursday for follow-up of his liver cancer. He has been having increasing pain recently in the abdomen and start a fentanyl patch yesterday. He seems to think a lot of his symptoms are just due to the pain that he has been having. He has not had any symptoms in his legs and no trouble walking. Onset (ago): day(s) Timing confirmed by: spouse Location: speech, left face, dysarthria and left arm History of same: No Severity: moderate Quality: weak, numb and intermittent Improves with: none Worsens with: none Context: sudden onset On Anticoagulants: No Associated symptoms: Reports denies other symptoms Treatments Prior to Arrival: none Related Data Previous Rx's Medication Instructions Recorded albuterol sulfate 90 mcg/actuation 2 puff INHALATION Q6H #18 g 04/19/20 aerosol inhaler amiloride 5 mg tablet 5 mg PO QDAY #90 tab 04/19/20 furosemide 20 mg tablet 20 mg PO QAM #90 tab 04/19/20 tramadol 50 mg tablet 50 mg PO TID PRN #90 tab 05/28/20 oxycodone 10 mg tablet 10 mg PO .COMPLEX 28 Days #196 tab 06/14/20 lactulose 20 g PO BID #1200 ml 06/23/20 fentanyl 50 mcg/hr transdermal 1 patch TRANSDERMA Q72H #5 each 06/29/20 patch Allergies Allergy/AdvReac Type Severity Reaction Status Date / Time adhesive tape AdvReac Intermediate skin Verified 06/23/20 10:29 sores, irritation Review of Systems ROS ROS Narrative: Narrative: All systems ED: reviewed and negative except as stated. [facility] Narrative Patient History Narrative: Narrative: Medical/Surgical/Family History All Active Problems (Updated 07/03/20 @ 13:25 by Karan Higignbotham MD) Constipation (Acute) Abdominal pain (Acute) Colitis (Acute) Liver malignancy (Acute) Acute CVA (cerebrovascular accident) (Acute) Tobacco dependence due to cigarettes (Chronic) Atrial fibrillation (Acute) SBP (spontaneous bacterial peritonitis) (Acute) Lactic acid acidosis (Acute) Sepsis (Acute) Cirrhosis of liver with ascites (Acute) Post-splenectomy (Chronic) Elevated troponin (Acute) CHF (congestive heart failure) (Acute) Ascites due to alcoholic cirrhosis (Acute) Hepatitis C (Chronic) Encephalopathy (Acute) Liver mass, left lobe (Acute) Reactive airway disease with acute exacerbation (Chronic) Sciatica (Acute) Medical History (Updated 07/03/20 @ 13:25 by Karan Higginbotham MD) Chronic back pain (Chronic) Hepatitis C (Chronic) History of liver cancer (Chronic) Hypertension (Chronic) Tobacco dependence due to cigarettes (Chronic) Surgical History (Updated 07/27/19 @ 14:11 by Vitaliy Chen PA-C) History of splenectomy (Resolved) Post-splenectomy (Chronic) Social History Smoking Status: Current every day smoker Exam Narrative Narrative: Narrative: General Limitations: no limitations Head Head: atraumatic, normocephalic and normal inspection Eye Eye: Present normal appearance, PERRL and EOMI; Absent scleral icterus, conjunctival injection and nystagmus ENT ENT: Present normal exam and normal oropharynx Neck Neck: Present normal inspection and full ROM; Absent tenderness Chest Chest: Present normal inspection and symmetric chest wall rise Respiratory Respiratory: Present normal lung sounds bilaterally and rales/crackles; Absent respiratory distress, wheezes and stridor Cardiovascular Cardiovascular: Present regular rate, normal rhythm and normal heart sounds Adbominal Abdominal: Present soft; Absent distention and tenderness Extremities Extremities: Present normal inspection; Absent pedal edema and pretibial edema Neurological Neurological: Present alert and oriented X3 Expanded Neurological Speech: Present fluid speech CRANIAL NERVES: facial sensation (V): Normal and facial palsy (VII): Normal Motor strength - LUE: 5/5 Motor strength - RUE: 5/5 Motor strength - LLE: 5/5 Motor strength - RLE: 5/5 Psychiatric Psychiatric: Present normal affect Skin Skin: Present warm and dry; Absent diaphoresis Course Vital Signs Vital signs: Vital Signs Temperature 97.2 F 07/03/20 08:54 Pulse Rate 86 07/03/20 08:54 Respiratory Rate 18 07/03/20 08:54 Blood Pressure 130/76 07/03/20 08:54 Pulse Oximetry (%) 95 07/03/20 08:54 Temperature 97.2 F 07/03/20 08:54 Pulse Rate 64 07/03/20 12:00 Respiratory Rate 17 07/03/20 12:00 Blood Pressure 136/74 07/03/20 12:00 Pulse Oximetry (%) 97 07/03/20 12:00 MDM MDM Narrative Medical decision making narrative: Narrative: This patient has a left internal carotid occlusion is 60% which does not correlate with his symptoms. He has 2 acute lacunar infarcts about 5 mm each in the right posterior capsule. I did consult with the hospital stroke neurologist Dr. Mcknight who felt that admission here and usual standard work-up and treatment was fine. Consulted with Dr. Sullivan who will admit the patient to the hospital. Lab Data Lab results reviewed: Yes I reviewed the patient's lab results. Result diagrams: 07/03/20 09:01 07/03/20 10:01 Labs: Lab Results 07/03/20 07/03/20 07/03/20 Range/Units 09:01 09:01 10:01 WBC 6.7 (4.50-11.00) K/mcL RBC 4.97 (4.63-6.08) M/mcL Hgb 16.4 (13.7-17.5) g/dL Hct 47.2 (40.1-51.0) % POC Hct 52.0 (41.0-55.0) % MCV 95.0 (80.0-100.0) fL MCH 33.0 (26.0-34.0) pg MCHC 34.7 (31.0-36.0) g/dL RDW 14.6 H (11.5-14.5) % Plt Count 283 (140-440) K/mcL MPV 11.6 H (7.4-10.4) fL Gran % 56.2 (38.0-78.0) % Lymph % (Auto) 22.8 (15.5-49.0) % [place] % (Auto) 17.0 H (1.0-12.0) % Eos % (Auto) 2.7 (0.0-7.0) % Baso % (Auto) 1.3 (0.0-2.0) % Gran # 3.78 (1.80-8.00) K/mcL Lymph # (Auto) 1.53 (1.50-4.80) K/mcL [place] # (Auto) 1.14 H (0.10-0.90) K/mcL Eos # (Auto) 0.18 (0.00-0.70) K/mcL Baso # (Auto) 0.09 (0.00-0.30) K/mcL POC Sodium 138 (133-145) mmol/L Sodium TNP 142 POC Potassium 5.1 (3.3-5.1) mmol/L Potassium TNP 4.2 POC Chloride 104 (96-108) mmol/L Chloride TNP 103 Carbon Dioxide TNP 26 POC Total CO2 25 (22-30) mmol/L Anion Gap TNP 13.0 POC BUN 8 (8-23) mg/dl BUN TNP 8 Creatinine TNP 0.7 POC Creatinine 0.8 (0.7-1.2) mg/dl GFR Calculation TNP 101 Glucose TNP 92 POC Glucose 112 H (70-105) mg/dL Calcium TNP 8.6 POC WB Ioniz Calcium 1.00 L (1.16-1.32) mmol/L Total Bilirubin TNP 0.7 AST TNP 35 ALT TNP 19 Alkaline Phosphatase TNP 116 Total Protein TNP 5.9 Albumin TNP 3.6 Globulin TNP 2.3 Albumin/Globulin Ratio TNP 1.6 Urine Color Urine Appearance Urine pH (5.0-9.0) Ur Specific [place] (1.000-1.035) Urine Protein (NEG) mg/dL Urine Glucose (UA) (NEG) mg/dL Urine Ketones (NEG) mg/dL Urine Occult Blood (<0.03) mg/dL Urine Nitrate (NEG) Urine Bilirubin (NEG) mg/dL Urine Urobilinogen (NEG) mg/dL Ur Leukocyte Esterase (NEG) /uL Ur Culture Indicated? 07/03/20 Range/Units 10:25 WBC (4.50-11.00) K/mcL RBC (4.63-6.08) M/mcL Hgb (13.7-17.5) g/dL Hct (40.1-51.0) % POC Hct (41.0-55.0) % MCV (80.0-100.0) fL MCH (26.0-34.0) pg MCHC (31.0-36.0) g/dL RDW (11.5-14.5) % Plt Count (140-440) K/mcL MPV (7.4-10.4) fL Gran % (38.0-78.0) % Lymph % (Auto) (15.5-49.0) % [place] % (Auto) (1.0-12.0) % Eos % (Auto) (0.0-7.0) % Baso % (Auto) (0.0-2.0) % Gran # (1.80-8.00) K/mcL Lymph # (Auto) (1.50-4.80) K/mcL [place] # (Auto) (0.10-0.90) K/mcL Eos # (Auto) (0.00-0.70) K/mcL Baso # (Auto) (0.00-0.30) K/mcL POC Sodium (133-145) mmol/L Sodium POC Potassium (3.3-5.1) mmol/L Potassium POC Chloride (96-108) mmol/L Chloride Carbon Dioxide POC Total CO2 (22-30) mmol/L Anion Gap POC BUN (8-23) mg/dl BUN Creatinine POC Creatinine (0.7-1.2) mg/dl GFR Calculation Glucose POC Glucose (70-105) mg/dL Calcium POC WB Ioniz Calcium (1.16-1.32) mmol/L Total Bilirubin AST ALT Alkaline Phosphatase Total Protein Albumin Globulin Albumin/Globulin Ratio Urine Color [place] Urine Appearance Clear Urine pH 6.0 (5.0-9.0) Ur Specific [place] 1.025 (1.000-1.035) Urine Protein Neg (NEG) mg/dL Urine Glucose (UA) Negative (NEG) mg/dL Urine Ketones Neg (NEG) mg/dL Urine Occult Blood Neg (<0.03) mg/dL Urine Nitrate Neg (NEG) Urine Bilirubin Neg (NEG) mg/dL Urine Urobilinogen 2.0 A (NEG) mg/dL Ur Leukocyte Esterase Neg (NEG) /uL Ur Culture Indicated? No Radiology Data Radiology results reviewed: Yes I reviewed the patient's radiology results. CC TIME Critical Care Time Critical Care Time: Yes Total Critical Care Time: 40 Attestation: This patient required about 40 minutes of bedside evaluation and consultation with neurologist and hospitalist. Also consultation with the radiologist. Discharge Plan Patient/Caregiver Discharge Instructions Pt seen by PLATE WORKER HELPER/PA only: No Clinical Impression: Acute CVA (cerebrovascular accident) Patient Disposition: Xfer As Inpt ([facility]) Condition: Fair Follow up with: Vitaliy Chen PA-C [Primary Care Provider] - Prescriptions: No Action albuterol sulfate [Proventil HFA] 90 mcg/actuation HFA aerosol inhaler 2 puff INHALATION Q6H Qty: 18 RF: 1 amiloride 5 mg tablet 5 mg PO QDAY Qty: 90 RF: 1 furosemide 20 mg tablet 20 mg PO QAM Qty: 90 RF: 1 tramadol 50 mg tablet 50 mg PO TID PRN (Reason: pain) Qty: 90 RF: 0 oxycodone 10 mg tablet 10 mg PO .COMPLEX 28 Days Qty: 196 RF: 0 Hold Instructions: Doctor's Order fentanyl 50 mcg/hr patch 72 hour 1 patch TRANSDERMA Q72H Qty: 5 RF: 0 lactulose 20 gram/30 mL solution 20 g PO BID Qty: 1200 RF: 0
[2020-07-03 11:16] LABS: Appearance,Urine CLEAR; Bilirubin,Urine NEG (NEG); Color,Urine AMBER; Culture Indicated,Urine NO; Glucose,Urine (UA) NEGATIVE (NEG); Ketones,Urine NEG (NEG); Leukocyte Esterase,Urine NEG /uL (NEG); Nitrate,Urine NEG (NEG); Protein,Urine NEG (NEG); Specific Gravity,Urine 1.025 (1.000-1.035); Urine Blood NEG mg/dL (<0.03)
--- NOTE | 2020-07-03 11:19 | Cat Scan Report ---
INDICATION: left sided weakness COMPARISON: None. TECHNIQUE: Axial images were obtained through the upper chest, neck, and head during arterial phase. MIP and CPR reformatted images. 80ml Isovue 370 injected intravenously. FINDINGS: AORTIC ARCH:Calcified atherosclerotic plaque in the aortic arch. Circumferential calcified and noncalcified plaque in the left subclavian artery. No hemodynamically significant stenosis or dissection. Origins of the left subclavian artery, left vertebral artery, left common carotid artery, innominate artery, right common carotid artery, right subclavian artery, right vertebral artery are negative. No origin stenosis. CAROTID ARTERIES:Right: Calcified plaque in the distal right common carotid artery and proximal right internal carotid artery. No noncalcified plaque. No evidence for ulceration. No hemodynamically significant stenosis Calcified plaque at the origin of the right internal carotid artery. No significant stenosis or evidence for ulceration. Right internal carotid artery is otherwise negative. No stenosis or occlusion. No fibromuscular dysplasia or dissection. Left: Left common carotid artery is negative. No stenosis or occlusion Prominent calcified plaque at the origin of left internal carotid artery. No noncalcified plaque or evidence for ulceration. There is approximately 60% stenosis at the origin of the left internal carotid artery. Left internal carotid artery is otherwise negative. There is no stenosis or occlusion. No dissection or evidence for fibromuscular dysplasia VERTEBRAL ARTERIES:Vertebral arteries are patent without stenosis or occlusion [place]:[Calcified plaque in the cavernous segments of both internal carotid arteries. There is calcified plaque in supraclinoid internal carotid arteries. No significant stenosis or occlusion. M1 segments of the middle cerebral arteries and A1 segments of the anterior cerebral arteries are negative. Intracranial vertebral arteries and basilar artery are negative. Posterior cerebral arteries and superior cerebellar arteries are negative] INTRACRANIAL CIRCULATION:No intracranial branch occlusion. No arteriovenous malformation or aneurysm No dural sinus occlusion UPPER CHEST:No pulmonary parenchymal mass or focal infiltrate. Superior mediastinum is negative. There is centrilobular emphysema suggesting smoking history. NECK:No solid or cystic soft tissue mass. No pathologic lymphadenopathy. There is degenerative disc disease at C5-6 BRAIN:No acute intracranial hemorrhage. No focal attenuation abnormalities or pathologic contrast enhancement. IMPRESSION: 1. Calcified atherosclerotic plaque in the aortic arch. There is calcified plaque in the distal common carotid artery and proximal internal carotid artery bilaterally. There is calcified plaque in the cavernous and supraclinoid segments of the internal carotid arteries 2. Approximately 60% diameter stenosis in the proximal left internal carotid artery 3. No intracranial branch occlusion. The exam was performed using radiation dose optimization techniques including, but not limited to, automated exposure control, adjustment of the mA and/or kV according to patient size and use of iterative reconstruction technique. Interpreted and Authenticated by: Cristian Suarez 07/03/20
[2020-07-03 11:31] LABS: ALT/SGPT 19 U/l (0-40); AST/SGOT 35 U/l (0-37); Albumin 3.6 gm/dL (3.2-5.2); Albumin/Globulin Ratio 1.6 (1.0-2.3); Alkaline Phosphatase 116 U/L (39-117); Bilirubin,Total 0.7 mg/dL (0.0-1.0); Blood Urea Nitrogen 8 mg/dl (8-23); Calcium 8.6 mg/dl (8.6-10.4); Chloride 103 mmol/L (96-108); Globulin 2.3 gm/dL (2.2-3.7); Glomerular Filtration Rate 101; Glucose 92 mg/dL (70-105)
[2020-07-03 11:36] LABS: Carbon Dioxide 26 mmol/L (22-30)
--- NOTE | 2020-07-03 12:47 | Magnetic Resonance Report ---
INDICATION: stroke symptoms TECHNIQUE: Limited brain MRI scan. Sagittal and axial images obtained COMPARISON: Previous brain CT scan dated 07/03/2020 FINDINGS: Two small foci of restricted diffusion and associated ADC abnormality. These both measure 5 mm and are most contiguous. Abnormality is within the inferior right thalamus or posterior limb of the internal capsule. No significant mass effect. No midline shift. Cerebral hemispheres are otherwise negative. No other focal areas of restricted diffusion. No focal signal abnormality. Volume is within normal limits. Brainstem and cerebellum are negative. IMPRESSION: 1. Two small foci of restricted diffusion in the posterior limb of the right internal capsule or inferior thalamus 2. Otherwise negative examination Interpreted and Authenticated by: Cristian Suarez 07/03/20
[2020-07-03] MEDS ORDERED: traMADol 50 MG TABLET PO PRN ×2 (14:08→14:58)
[2020-07-03] MEDS ORDERED: ALBUTEROL SULFATE 200 PUFF INHALER INH SCH (14:15)
[2020-07-03] MEDS ORDERED: NON FORMULARY MEDICATION 1 DOSE MISCELL (Oxycodone 10 MG) PO SCH ×2 (14:15→14:58)
[2020-07-03] MEDS ORDERED: fentaNYL 50 MCG PATCH TOPICAL SCH (14:15)
[2020-07-03] MEDS ORDERED: 0.9 % SODIUM CHLORIDE 1,000 ML IV SCH (14:15)
--- NOTE | 2020-07-03 14:38 | Internal Med History&Physical ---
HPI History of Present Illness Patient information: Note initiated : 07/03/20 at 2:23 pm Service Date, if different from initiated Date: [] Patient: Neal Bolaños a 64 y/o M admitted on for left arm weakness, left facial droop, speech diffi. Chief Complaint: [] History of present illness: Mr. Bolaños is a 64 year old M with a history of tobacco dependence, atrial fibrillation, hepatitis C, liver cirrhosis, CHF, and high blood pressure who was brought to the ER due to left facial droop. At per patient and , patient was noted to have left facial droop and left arm shaking movements yesterday morning. But these symptoms and signs seems to be improving. Patient denies headache, dizziness, chest pain, shortness of breath, dysuria, or change in vision. In the ER, CT of head without contrast negative. MRI brain - Two small foci of restricted diffusion in the posterior limb of the right internal capsule or inferior thalamus. When I saw this patient in the ER, no focal neurological deficits seemed to be identified. Review of Systems All systems: reviewed and no additional remarkable complaints except as stated PFSH PFS Medical History Chronic back pain (Chronic) Hepatitis C (Chronic) History of liver cancer (Chronic) Hypertension (Chronic) Tobacco dependence due to cigarettes (Chronic) Surgical History History of splenectomy (Resolved) Post-splenectomy (Chronic) Social History smoking status: Current every day smoker MEDS/ALLERGIES Home Medications and Allergies Home Medications Medication Instructions Recorded Confirmed Type albuterol sulfate 90 mcg/actuation 2 puff INHALATION Q6H #18 g 04/19/20 07/03/20 Rx aerosol inhaler amiloride 5 mg tablet 5 mg PO QDAY #90 tab 04/19/20 07/03/20 Rx furosemide 20 mg tablet 20 mg PO QAM #90 tab 04/19/20 07/03/20 Rx tramadol 50 mg tablet 50 mg PO TID PRN #90 tab 05/28/20 07/03/20 Rx oxycodone 10 mg tablet 10 mg PO .COMPLEX 28 Days #196 tab 06/14/20 07/03/20 Rx lactulose 20 g PO BID #1200 ml 06/23/20 07/03/20 Rx fentanyl 50 mcg/hr transdermal 1 patch TRANSDERMA Q72H #5 each 06/29/20 07/03/20 Rx patch Allergies Allergy/AdvReac Type Severity Reaction Status Date / Time adhesive tape AdvReac Intermediate skin Verified 06/23/20 10:29 sores, irritation EXAM Constitutional Vitals: Temp Pulse Resp BP Pulse Ox 97.2 F 69 19 155/127 94 07/03/20 08:54 07/03/20 14:00 07/03/20 14:00 07/03/20 14:00 07/03/20 14:00 Additional findings Additional findings: General - No acute distress Eyes - PERRLA, EOM intact ENT no rhinorrhea, no noticeable or palpable swelling, no redness or rash around throat or on face Neck supple, no JVD, no thyromegaly Respiratory: Lungs -clear, no wheezing or crackles. Cardiovascular - RRR no m/r/g, GI - Normal bowel sounds, no distended, soft. Extremeties - No edema, cyanosis or clubbing Hemo/lymphatic/immune no lymphadenopathy Neurological Alert and oriented x 3, no focal neurological deficits. Psychiatry flat affect DATA Data Completed and Pending Labs on day of discharge: Labs from last 24 hours 07/03/20 07/03/20 07/03/20 10:25 10:01 09:01 WBC RBC Hgb Hct POC Hct MCV MCH MCHC RDW Plt Count MPV Gran % Lymph % (Auto) [place] % (Auto) Eos % (Auto) Baso % (Auto) Gran # Lymph # (Auto) [place] # (Auto) Eos # (Auto) Baso # (Auto) POC Sodium Sodium 142 POC Potassium Potassium 4.2 POC Chloride Chloride 103 Carbon Dioxide 26 POC Total CO2 Anion Gap 13.0 POC BUN BUN 8 Creatinine 0.7 POC Creatinine GFR Calculation 101 Glucose 92 POC Glucose Hemoglobin A1c Pending Estim Average Glucose Pending Calcium 8.6 POC WB Ioniz Calcium Total Bilirubin 0.7 AST 35 ALT 19 Alkaline Phosphatase 116 Total Protein 5.9 Albumin 3.6 Globulin 2.3 Albumin/Globulin Ratio 1.6 Triglycerides Pending Cholesterol Pending LDL Cholesterol, Calc Pending Non-HDL Cholesterol Pending HDL Cholesterol Pending Urine Color Kellie Urine Appearance Clear Urine pH 6.0 Ur Specific [place] 1.025 Urine Protein Neg Urine Glucose (UA) Negative Urine Ketones Neg Urine Occult Blood Neg Urine Nitrate Neg Urine Bilirubin Neg Urine Urobilinogen 2.0 A Ur Leukocyte Esterase Neg Ur Culture Indicated? No 07/03/20 07/03/20 09:01 09:01 WBC 6.7 RBC 4.97 Hgb 16.4 Hct 47.2 POC Hct 52.0 MCV 95.0 MCH 33.0 MCHC 34.7 RDW 14.6 H Plt Count 283 MPV 11.6 H Gran % 56.2 Lymph % (Auto) 22.8 [place] % (Auto) 17.0 H Eos % (Auto) 2.7 Baso % (Auto) 1.3 Gran # 3.78 Lymph # (Auto) 1.53 [place] # (Auto) 1.14 H Eos # (Auto) 0.18 Baso # (Auto) 0.09 POC Sodium 138 Sodium TNP POC Potassium 5.1 Potassium TNP POC Chloride 104 Chloride TNP Carbon Dioxide TNP POC Total CO2 25 Anion Gap TNP POC BUN 8 BUN TNP Creatinine TNP POC Creatinine 0.8 GFR Calculation TNP Glucose TNP POC Glucose 112 H Hemoglobin A1c Estim Average Glucose Calcium TNP POC WB Ioniz Calcium 1.00 L Total Bilirubin TNP AST TNP ALT TNP Alkaline Phosphatase TNP Total Protein TNP Albumin TNP Globulin TNP Albumin/Globulin Ratio TNP Triglycerides Cholesterol LDL Cholesterol, Calc Non-HDL Cholesterol HDL Cholesterol Urine Color Urine Appearance Urine pH Ur Specific [place] Urine Protein Urine Glucose (UA) Urine Ketones Urine Occult Blood Urine Nitrate Urine Bilirubin Urine Urobilinogen Ur Leukocyte Esterase Ur Culture Indicated? A/P Narrative A/P Narrative: 1. CVA/TIA No focal neurological defects in the ER CT of head without contrast negative. MRI brain - Two small foci of restricted diffusion in the posterior limb of the right internal capsule or inferior thalamus. CTA head and neck - Approximately 60% diameter stenosis in the proximal left internal carotid artery. No intracranial branch occlusion. ER physician Dr. Higginbotham consulted with the hospital stroke neurologist Dr. Mcknight who felt that admission here and usual standard work-up and treatment was fine. Cardia monitor Pulse ox Neuro check every 4 hours Home blood pressure medication amibride 5mg daily is on hold for permissive HTN. Lipid profile TSH Hemoglobin A1c Aspirin and Lipitor N.p.o. until passing swallow eval PT OT ST 2. Tobacco dependence Smoking cessation counseling 3. Liver malignancy Was diagnosed 2 years ago and received chemotherapy by his own oncologist Pain management with a home medication fentanyl patch and oxycodone Follow with the his own oncologist 4. Atrial fibrillation Heart rate is controlled Not on anticoagulation 5. Hepatitis C 6. Liver cirrhosis with ascites Follow with GI and oncologist at outpatient 7. CHF Seems to be stable. Intake and output Continue home Lasix 20 mg daily 8. HTN Permissive hypertension 9. DVT prophylaxis: Lovenox 10. CODE STATUS: DNR/DNI Discussed with the patient and who declined CPR and intubation. Time Spent With Patient Time: Total time spent is greater than 50% in coordination of care (as documented) at patient's floor/unit and/or counseling patient:
[2020-07-03 14:57] LABS: Hemoglobin A1C 5.5 % HGB (4.0-6.0)
[2020-07-03] MEDS: ALBUTEROL SULFATE 200 PUFF INHALER INH SCH (16:23)
[2020-07-03] MEDS: 0.9 % SODIUM CHLORIDE 1,000 ML IV SCH (16:33)
[2020-07-03] MEDS: LORazepam 2 MG/ML VIAL IV PRN (16:33)
[2020-07-03] MEDS ORDERED: DOCUSATE SODIUM 100 MG CAPSULE PO SCH (21:00)
[2020-07-03] MEDS ORDERED: LACTULOSE 20 GM/30 ML ORAL.SOL PO SCH (21:00)
[2020-07-03] MEDS: LACTULOSE 20 GM/30 ML ORAL.SOL PO SCH (21:39)
[2020-07-04] MEDS: LORazepam 2 MG/ML VIAL IV PRN (02:44)
[2020-07-04] MEDS: ALBUTEROL SULFATE 200 PUFF INHALER INH SCH ×2 (02:45→05:08)
[2020-07-04] MEDS: 0.9 % SODIUM CHLORIDE 1,000 ML IV SCH (05:08)
[2020-07-04 06:14] LABS: Basophils % (Auto) 1.7 % (0.0-2.0); Eosinophils # (Auto) 0.31 K/mcL (0.00-0.70); Eosinophils % (Auto) 5.2 % (0.0-7.0); Granulocytes % (Auto) 47.2 % (38.0-78.0); Hematocrit 39.8 % (40.1-51.0); Hemoglobin 13.8 g/dL (13.7-17.5); Lymphocytes # (Auto) 1.48 K/mcL (1.50-4.80); Lymphocytes % (Auto) 24.7 % (15.5-49.0); Mean Cell Volume 94.8 fL (80.0-100.0); Mean Corpuscular HGB Conc 34.7 g/dL (31.0-36.0); Mean Platelet Volume 11.6 fL (7.4-10.4); Monocytes # (Auto) 1.27 K/mcL (0.10-0.90); Monocytes % (Auto) 21.2 % (1.0-12.0); Platelet Count 260 K/mcL (140-440); Red Cell Distribution Width 14.6 % (11.5-14.5)
[2020-07-04 06:26] LABS: INR 1.1 (0.9-1.1); Prothrombin Time 15.1 sec (11.9-14.5)
[2020-07-04 06:47] LABS: proBNP 90.5 pg/ml (0-125)
[2020-07-04 06:59] LABS: ALT/SGPT 17 U/l (0-40); AST/SGOT 33 U/l (0-37); Albumin 2.9 gm/dL (3.2-5.2); Albumin/Globulin Ratio 1.3 (1.0-2.3); Alkaline Phosphatase 94 U/L (39-117); Bilirubin,Total 0.6 mg/dL (0.0-1.0); Blood Urea Nitrogen 8 mg/dl (8-23); Calcium 8.3 mg/dl (8.6-10.4); Carbon Dioxide 23 mmol/L (22-30); Chloride 105 mmol/L (96-108); Globulin 2.3 gm/dL (2.2-3.7); Glomerular Filtration Rate 96; Glucose 88 mg/dL (70-105)
[2020-07-04] MEDS: LACTULOSE 20 GM/30 ML ORAL.SOL PO SCH (08:32)
[2020-07-04] MEDS ORDERED: ASPIRIN 81 MG TAB.CHEW CHEWED SCH ×2 (09:00)
[2020-07-04] MEDS ORDERED: ENOXAPARIN 40 MG/0.4 ML SYRINGE SQ SCH ×2 (09:00)
[2020-07-04] MEDS ORDERED: FUROSEMIDE 20 MG TABLET PO SCH ×2 (09:00)
[2020-07-04] MEDS ORDERED: ATORVASTATIN 40 MG TABLET PO SCH ×2 (09:00)
--- NOTE | 2020-07-04 10:46 | Discharge Summary ---
Discharge Provider Provider Patient information: Note initiated : 07/04/20 at 10:35 am Service Date, if different from initiated Date: [] Patient: Neal Bolaños 64 y/o M admitted on 07/03/20 for left arm weakness, left facial droop, speech diffi. Chief Complaint: [] Date of admission: 07/03/20 14:50 Discharge date: 07/04/20 Primary care physician: Vitaliy Chen Consults: 07/03/20 Consult to Physician [CONS] Stat Comment: Consulting Provider: Ange Sullivan Reason For Exam: Physician to Consult Discharge Meds Discharge Medications Home Medications amiloride 5 mg tablet 5 mg PO QDAY #90 tab 04/19/20 [Rx Confirmed 07/03/20 Last Taken 06/19/20 07:00] furosemide 20 mg tablet 20 mg PO QAM #90 tab 04/19/20 [Rx Confirmed 07/03/20 Last Taken 06/19/20 08:00] tramadol 50 mg tablet 50 mg PO TID PRN #90 tab 05/28/20 [Rx Confirmed 07/03/20 Last Taken 07/01/20 22:00] lactulose 20 g PO BID #1200 ml 06/23/20 [Rx Confirmed 07/03/20 Last Taken 07/02/20 21:00] fentanyl 50 mcg/hr transdermal patch 1 patch TRANSDERMA Q72H #5 each 06/29/20 [Rx Confirmed 07/03/20 Last Taken 07/02/20 13:00] folic acid 1 mg PO DAILY 07/03/20 [History Confirmed 07/03/20 Last Taken 06/19/20 08:00] aspirin 81 mg CHEWED DAILY #30 tab 07/04/20 [Rx Last Taken Unknown] atorvastatin 40 mg PO DAILY #30 tab 07/04/20 [Rx Last Taken Unknown] clopidogrel [Plavix] 75 mg PO QDAY #30 tab 07/04/20 [Rx Last Taken Unknown] COURSE Hospital Course Hospital course: 1. CVA/TIA No focal neurological defects in the ER when I saw pt. CT of head without contrast negative. MRI brain - Two small foci of restricted diffusion in the posterior limb of the right internal capsule or inferior thalamus. CTA head and neck - Approximately 60% diameter stenosis in the proximal left internal carotid artery. No intracranial branch occlusion. ER physician Dr. Higginbotham consulted with the hospital stroke neurologist Dr. Mcknight who felt that admission here and usual standard work-up and treatment was fine. Cardia monitor Pulse ox Neuro check every 4 hours Lipid profile TSH Hemoglobin A1c Aspirin and Lipitor N.p.o. until passing swallow eval PT OT ST 2. Tobacco dependence Smoking cessation counseling 3. Liver malignancy Was diagnosed 2 years ago and received chemotherapy by his own oncologist Pain management with a home medication fentanyl patch and oxycodone Follow with the his own oncologist 4. Atrial fibrillation Heart rate is controlled Not on anticoagulation 5. Hepatitis C 6. Liver cirrhosis with ascites Follow with GI and oncologist at outpatient 7. CHF Seems to be stable. Intake and output Continue home Lasix 20 mg daily 8. HTN Continue home BP meds. Today patient does not have any complaints. Denies headache, dizziness, nausea, vomiting, chest pain, shortness of breath, abdominal pain, changes in vision or urinary habits. Patient has atrial fibrillation and is not taking anticoagulation. Patient told me that he is easily to bleed. 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 He does not want to start anticoagulation now. So I advised him to take aspirin, Plavix and Lipitor. He needs to see nephrology and PCP to discuss with them for long-term treatment. PT okay to discharge patient to home. Patient can have a good support from her . Stop smoking. Echocardiogram was performed and results are still pending. Do not drive or operate machine until approval from MD. Call PCP for medical issues. Discharge diagnosis: CVA/TIA Time Spent with Patient Time attestation: Total time spent providing and/or coordinating discharge services: EXAM Constitutional Vitals: Temp Pulse Resp BP Pulse Ox 99.0 F 80 18 121/85 94 07/04/20 10:10 07/04/20 08:00 07/04/20 10:10 07/04/20 10:10 07/04/20 10:10 Additional findings Additional findings: General - No acute distress Eyes - PERRLA, EOM intact ENT no rhinorrhea, no noticeable or palpable swelling, no redness or rash around throat or on face Neck supple, no JVD, no thyromegaly Respiratory: Lungs -clear, no wheezing or crackles. Cardiovascular - RRR no m/r/g, GI - Normal bowel sounds, no distended, soft. Extremeties - No edema, cyanosis or clubbing Hemo/lymphatic/immune no lymphadenopathy Neurological Alert and oriented x 3, no focal neurological deficits. Psychiatry flat affect Discharge Data Data Completed and Pending Labs on day of discharge: Labs from last 24 hours 07/04/20 07/04/20 07/04/20 05:00 05:00 05:00 WBC 6.0 RBC 4.20 L Hgb 13.8 Hct 39.8 L MCV 94.8 MCH 32.9 MCHC 34.7 RDW 14.6 H Plt Count 260 MPV 11.6 H Gran % 47.2 Lymph % (Auto) 24.7 [place] % (Auto) 21.2 H Eos % (Auto) 5.2 Baso % (Auto) 1.7 Gran # 2.83 Lymph # (Auto) 1.48 L [place] # (Auto) 1.27 H Eos # (Auto) 0.31 Baso # (Auto) 0.10 PT 15.1 H INR 1.1 Sodium 138 Potassium 4.0 Chloride 105 Carbon Dioxide 23 Anion Gap 10.0 BUN 8 Creatinine 0.8 GFR Calculation 96 Glucose 88 Hemoglobin A1c Estim Average Glucose Calcium 8.3 L Total Bilirubin 0.6 AST 33 ALT 17 Alkaline Phosphatase 94 NT-Pro-B Natriuret Pep 90.5 Total Protein 5.2 L Albumin 2.9 L Globulin 2.3 Albumin/Globulin Ratio 1.3 Triglycerides Cholesterol LDL Cholesterol, Calc Non-HDL Cholesterol HDL Cholesterol TSH 1.80 Urine Color Urine Appearance Urine pH Ur Specific [place] Urine Protein Urine Glucose (UA) Urine Ketones Urine Occult Blood Urine Nitrate Urine Bilirubin Urine Urobilinogen Ur Leukocyte Esterase Ur Culture Indicated? 07/03/20 07/03/20 07/03/20 10:25 10:01 09:01 WBC RBC Hgb Hct MCV MCH MCHC RDW Plt Count MPV Gran % Lymph % (Auto) [place] % (Auto) Eos % (Auto) Baso % (Auto) Gran # Lymph # (Auto) [place] # (Auto) Eos # (Auto) Baso # (Auto) PT TNP INR TNP Sodium 142 Potassium 4.2 Chloride 103 Carbon Dioxide 26 Anion Gap 13.0 BUN 8 Creatinine 0.7 GFR Calculation 101 Glucose 92 Hemoglobin A1c Estim Average Glucose Calcium 8.6 Total Bilirubin 0.7 AST 35 ALT 19 Alkaline Phosphatase 116 NT-Pro-B Natriuret Pep Total Protein 5.9 Albumin 3.6 Globulin 2.3 Albumin/Globulin Ratio 1.6 Triglycerides Cholesterol LDL Cholesterol, Calc Non-HDL Cholesterol HDL Cholesterol TSH Urine Color [place] Urine Appearance Clear Urine pH 6.0 Ur Specific [place] 1.025 Urine Protein Neg Urine Glucose (UA) Negative Urine Ketones Neg Urine Occult Blood Neg Urine Nitrate Neg Urine Bilirubin Neg Urine Urobilinogen 2.0 A Ur Leukocyte Esterase Neg Ur Culture Indicated? No 07/03/20 09:01 WBC RBC Hgb Hct MCV MCH MCHC RDW Plt Count MPV Gran % Lymph % (Auto) [place] % (Auto) Eos % (Auto) Baso % (Auto) Gran # Lymph # (Auto) [place] # (Auto) Eos # (Auto) Baso # (Auto) PT INR Sodium Potassium Chloride Carbon Dioxide Anion Gap BUN Creatinine GFR Calculation Glucose Hemoglobin A1c 5.5 Estim Average Glucose 111 Calcium Total Bilirubin AST ALT Alkaline Phosphatase NT-Pro-B Natriuret Pep Total Protein Albumin Globulin Albumin/Globulin Ratio Triglycerides 102 Cholesterol 92 LDL Cholesterol, Calc 38 Non-HDL Cholesterol 58 HDL Cholesterol 34 L TSH Urine Color Urine Appearance Urine pH Ur Specific [place] Urine Protein Urine Glucose (UA) Urine Ketones Urine Occult Blood Urine Nitrate Urine Bilirubin Urine Urobilinogen Ur Leukocyte Esterase Ur Culture Indicated? Discharge Plan Patient/Caregiver Discharge Instructions Activity: increase activity as tolerated Diet: Low Sodium (2gm), Cardiac and Low Fat Instructions: Transient Ischemic Attack (DC) Activity Restrictions/Additional Instructions: This discharge packet is provided to you to help keep you informed about your care. We want to ensure you get everything you need when you go home. You will also be receiving a call from us in a few days to follow up with you and see how you are doing since your discharge. This gives us a chance to listen to any concerns you maybe experiencing since you were discharged or any additional needs you may have, as well as providing us feedback on your care experience. We strive to always provide excellent care and thank you for your feedback and for choosing [facility]. Prescriptions: New atorvastatin 40 mg Tablet 40 mg PO DAILY Qty: 30 RF: 0 aspirin 81 mg Tablet,Chewable 81 mg CHEWED DAILY Qty: 30 RF: 0 clopidogrel [Plavix] 75 mg tablet 75 mg PO QDAY Qty: 30 RF: 0 Continued amiloride 5 mg tablet 5 mg PO QDAY Qty: 90 RF: 1 furosemide 20 mg tablet 20 mg PO QAM Qty: 90 RF: 1 tramadol 50 mg tablet 50 mg PO TID PRN (Reason: pain) Qty: 90 RF: 0 fentanyl 50 mcg/hr patch 72 hour 1 patch TRANSDERMA Q72H Qty: 5 RF: 0 lactulose 20 gram/30 mL solution 20 g PO BID Qty: 1200 RF: 0 folic acid 1 mg Tablet 1 mg PO DAILY RF: 0 Other Ambulatory Orders: Comprehensive Metabolic Panel (Routine) Timeframe: 1 Week Facility: [facility] - Location: Laboratory Ordered By: Ange Sullivan Magnesium (Routine) Timeframe: 1 Week Facility: [facility] - Location: Laboratory Ordered By: Ange Sullivan Follow Up Plan Follow up with: Felecia Aguilar ARNP [Nurse Practitioner] - 07/10/20 3:15 pm Vitaliy Chen PA-C [Primary Care Provider] - 07/18/20 9:30 am (Please check in at 9:15 am for this appointment.) Unknown [Outside] (f/u with pcp in 3 days, cardiology and neurology in one week. ) Patient Disposition: Home, Self-Care Prognosis: Fair Discharge Orders: Discharge Order (Routine); Ordered 07/04/20 Ordered By: Ange Sullivan
[2020-07-05] MEDS ORDERED: fentaNYL 50 MCG PATCH TOPICAL SCH (10:00)
== END 2020-07-04 11:30 | disposition home or self-care (01) ==
LOC: ED 08:49 → ICU 08:49
PROVIDERS: ADMIT Internal Medicine; ATTEND Internal Medicine

== ENCOUNTER 2021-01-23 14:58 | Inpatient (IN) ==
[2021-01-23] MEDS ORDERED: IOPAMIDOL 100 ML BOTTLE IV ONE (14:59)
[2021-01-23 16:01] LABS: POC Creatinine 0.9 mg/dL (0.6-1.2)
--- NOTE | 2021-01-23 16:02 | Emergency Department Note ---
Weakness HPI General Chief complaint: Weakness Stated complaint: leg and abdomen swelling Time Seen by Provider: 01/23/21 15:16 Source: patient Mode of arrival: ambulatory Limitations: no limitations History of Present Illness HPI Narrative: Narrative: 65-year-old male currently being treated for liver cancer for the past 4 years presents emergency department after he went to the oncologist to get a transfusion and they were concerned that he needed to be seen by the emergency department. The states that over the past 4 days he seems to be getting more confused and weak and today it is a much worse. The denies the patient having a cough or complaining of shortness of breath or chest pain and has not noticed any fever at home. Patient last had a paracentesis 2 weeks ago and it usually gets it once a week. Patient is unable to follow any commands or answer any questions. Related Data Home Medications Medication Instructions Recorded Confirmed folic acid 1 mg PO DAILY 07/03/20 01/13/21 Previous Rx's Medication Instructions Recorded lactulose 20 gram/30 mL oral 20 g PO BID #3000 ml 07/19/20 solution baclofen 5 mg tablet 5 mg PO TID #90 tab 09/10/20 duloxetine 30 mg capsule,delayed See Rx Instructions PO .COMPLEX 11/29/20 release #90 cap tramadol 50 mg tablet 50 mg PO TID PRN #90 tab 11/29/20 spironolactone 100 mg tablet 100 mg PO QAM #30 tab 12/10/20 oxycodone 10 mg tablet 10 mg PO QID #120 tab 01/18/21 Allergies Allergy/AdvReac Type Severity Reaction Status Date / Time levofloxacin [From Levaquin] Allergy Intermediate Redness of Verified 01/23/21 15:03 Skin adhesive tape AdvReac Intermediate skin Verified 01/23/21 15:03 sores, irritation Review of Systems ROS ROS Narrative: Narrative: I was able to obtain some review of systems from the of the patient and she denied the patient complaining of fever, headache, changes in vision, chest pain, shortness of breath. No history of vomiting. 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) Cirrhosis (Acute) Small bowel obstruction, partial (Acute) Acute hepatic encephalopathy (Acute) Hematochezia (Acute) custodial (current) use of antithrombotics/antiplatelets (Acute) Fall (Acute) Depression (Acute) Constipation (Acute) Abdominal pain (Acute) Colitis (Acute) Liver malignancy (Acute) Acute CVA (cerebrovascular accident) (Acute) Tobacco dependence due to cigarettes (Chronic) Atrial fibrillation (Acute) SBP (spontaneous bacterial peritonitis) (Acute) Lactic acid acidosis (Acute) Sepsis (Acute) Cirrhosis of liver with ascites (Acute) Post-splenectomy (Chronic) Elevated troponin (Acute) CHF (congestive heart failure) (Acute) Ascites due to alcoholic cirrhosis (Acute) Hepatitis C (Chronic) Encephalopathy (Acute) Liver mass, left lobe (Acute) Reactive airway disease with acute exacerbation (Chronic) Sciatica (Acute) Medical History (Updated 01/23/21 @ 20:01 by Jose Carlos Rodriguez PA-C) Chronic back pain Depression Hepatitis C History of liver cancer Hypertension Tobacco dependence due to cigarettes Surgical History History of splenectomy Post-splenectomy Social History Smoking Status: Current every day smoker Exam Narrative Narrative: Narrative: Patient does seem a bit anxious in bed. He was unable to follow any of my commands including sticking out his tongue or raising his arms. He was able to move all his extremities and sit up in bed on his own. Abdomen: Abdomen is distended. Tender, Tight. But no signs of peritonitis. General Limitations: no limitations Head Head: Present atraumatic and normocephalic Eye Eye: Present other (slow pupillary reaction.) Respiratory Respiratory: Present normal lung sounds bilaterally and respiratory distress Adbominal Abdominal: Present other Neurological Neurological: Present alert and other (I asked him if he knew what year was and he said yes but was unable to tell me any specifics. This continued on location and month.) Psychiatric Psychiatric: Present agitated Skin Skin: Present warm (WNL) and cool Course Vital Signs Vital signs: Vital Signs Temperature 97.0 F 01/23/21 14:59 Pulse Rate 96 H 01/23/21 14:59 Respiratory Rate 16 01/23/21 14:59 Blood Pressure 137/62 01/23/21 14:59 Pulse Oximetry (%) 98 01/23/21 14:59 Temperature 97.0 F 01/23/21 14:59 Pulse Rate 93 H 01/23/21 19:15 Respiratory Rate 14 01/23/21 19:15 Blood Pressure 119/71 01/23/21 19:15 Pulse Oximetry (%) 95 01/23/21 19:15 [facility] MDM Narrative Medical decision making narrative: Narrative: Chest x-ray shows no acute abnormalities CT of the brain without contrast is negative for acute abnormality CT abdomen pelvis with contrast shows ascites but no other acute changes. Labs reviewed normal white count there is low anion gap but I think this is most likely due to the low albumin. Bilirubin is slightly elevated to 3.5 and ammonia is 130. Patient has not not been taking his lactulose for at least the last 3 days which I believe is contributing to his altered mental status leading to hepatic encephalopathy. He will be admitted to Dr. Hall for further evaluation and treatment. This patient was seen in conjunction with Dr. Frank. Please see physician addendum. Lab Data Result diagrams: 01/23/21 15:50 01/23/21 15:49 Labs: Lab Results 01/23/21 01/23/21 01/23/21 Range/Units 15:49 15:49 15:49 WBC (4.5-11.0) K/mcL RBC (4.50-5.90) M/mcL Hgb (13.5-16.5) g/dL Hct (41.0-55.0) % MCV (80.0-100.0) fL MCH (26.0-34.0) pg MCHC (31.0-36.0) g/dL RDW (11.5-14.5) % Plt Count (140-440) K/mcL MPV (7.4-10.4) fL Neut % (Auto) (38.0-78.0) % Lymph % (Auto) (15.0-49.0) % [place] % (Auto) (1.0-12.0) % Eos % (Auto) (0.0-7.0) % Baso % (Auto) (0.0-2.0) % Lymph # (Auto) (1.50-4.80) K/mcL [place] # (Auto) (0.10-0.90) K/mcL Eos # (Auto) (0.00-0.70) K/mcL Baso # (Auto) (0.00-0.20) K/mcL Absolute Neutrophils (1.80-8.00) K/mcL Sodium 136 (133-145) mmol/L Potassium 5.0 (3.3-5.1) mmol/L Chloride 102 (96-108) mmol/L Carbon Dioxide 31 H (22-30) mmol/L Anion Gap 3.0 L (8.0-16.0) BUN 17 (8-23) mg/dL Creatinine 0.8 (0.7-1.2) mg/dL POC Creatinine 0.9 (0.6-1.2) mg/dL GFR Calculation 95 Glucose 103 (70-105) mg/dL Calcium 8.7 (8.6-10.4) mg/dL Total Bilirubin 3.5 H (0.1-1.0) mg/dL AST 77 H (<40) U/L ALT 34 (<40) U/L Alkaline Phosphatase 239 H (39-117) U/L Ammonia 130 H (16-60) umol/L Total Protein 5.8 L (5.9-8.4) gm/dL Albumin 2.6 L (3.2-5.2) gm/dL Globulin 3.2 (2.2-3.7) gm/dL Albumin/Globulin Ratio 0.8 L (1.0-2.3) Lipase 31 (7-60) U/L Ethyl Alcohol < 0.010 (<0.010) gm/dL 01/23/21 Range/Units 15:50 WBC 10.4 (4.5-11.0) K/mcL RBC 3.48 L (4.50-5.90) M/mcL Hgb 9.3 L (13.5-16.5) g/dL Hct 27.1 L (41.0-55.0) % MCV 77.9 L (80.0-100.0) fL MCH 26.7 (26.0-34.0) pg MCHC 34.3 (31.0-36.0) g/dL RDW 26.3 H (11.5-14.5) % Plt Count 192 (140-440) K/mcL MPV 11.0 H (7.4-10.4) fL Neut % (Auto) 63.8 (38.0-78.0) % Lymph % (Auto) 8.8 L (15.0-49.0) % [place] % (Auto) 22.3 H (1.0-12.0) % Eos % (Auto) 4.4 (0.0-7.0) % Baso % (Auto) 0.7 (0.0-2.0) % Lymph # (Auto) 0.91 L (1.50-4.80) K/mcL [place] # (Auto) 2.31 H (0.10-0.90) K/mcL Eos # (Auto) 0.46 (0.00-0.70) K/mcL Baso # (Auto) 0.07 (0.00-0.20) K/mcL Absolute Neutrophils 6.61 (1.80-8.00) K/mcL Sodium (133-145) mmol/L Potassium (3.3-5.1) mmol/L Chloride (96-108) mmol/L Carbon Dioxide (22-30) mmol/L Anion Gap (8.0-16.0) BUN (8-23) mg/dL Creatinine (0.7-1.2) mg/dL POC Creatinine (0.6-1.2) mg/dL GFR Calculation Glucose (70-105) mg/dL Calcium (8.6-10.4) mg/dL Total Bilirubin (0.1-1.0) mg/dL AST (<40) U/L ALT (<40) U/L Alkaline Phosphatase (39-117) U/L Ammonia (16-60) umol/L Total Protein (5.9-8.4) gm/dL Albumin (3.2-5.2) gm/dL Globulin (2.2-3.7) gm/dL Albumin/Globulin Ratio (1.0-2.3) Lipase (7-60) U/L Ethyl Alcohol (<0.010) gm/dL EKG Data EKG #1: EKG results narrative: EKG shows a sinus rhythm at 95 beats a minute. Normal axis, normal parable narrow QRS normal QTC. There are no signs of Brugada, Bnmsk-[id number] or HOCM. There is no hyperacute T waves or ST segment deviations. Compared to previous the ECG it is unchanged. There is a positive beginning of the rhythm strip but this pattern does not continue. My interpretation is normal sinus rhythm. Discharge Plan Patient/Caregiver Discharge Instructions Pt seen by [employer]/PA only: No Clinical Impression: Acute hepatic encephalopathy Patient Disposition: Xfer As Inpt ([facility]) Follow up with: Vitaliy Chen PA-C [Primary Care Provider] - Prescriptions: No Action lactulose 20 gram/30 mL solution 20 g PO BID Qty: 3000 RF: 2 oxycodone 10 mg tablet 10 mg PO QID Qty: 120 RF: 0 baclofen 5 mg tablet 5 mg PO TID Qty: 90 RF: 0 tramadol 50 mg tablet 50 mg PO TID PRN (Reason: pain) Qty: 90 RF: 0 Hold Instructions: Doctor's Order duloxetine 30 mg capsule,delayed release(DR/EC) See Rx Instructions PO .COMPLEX Qty: 90 RF: 5 spironolactone 100 mg tablet 100 mg PO QAM Qty: 30 RF: 0 folic acid 1 mg Tablet 1 mg PO DAILY RF: 0
--- NOTE | 2021-01-23 16:13 | XRay Report ---
CLINICAL INFORMATION: AMS COMPARISON: 07/28/2019 FINDINGS: Heart size, mediastinum and pulmonary vessels are normal. Lung volumes are elevated and there is wall thickening of the bronchi compatible chronic bronchitis or asthma as previously seen. Mild interstitial disease is seen throughout both lungs on today's exam effusions IMPRESSION: Mild chronic bronchitis or asthma. Mild interstitial disease throughout both lungs has developed. This may be infectious or inflammatory. Interpreted and Authenticated by: Cristian Ozuna 01/23/21
[2021-01-23 16:39] LABS: Basophils # (Auto) 0.07 K/mcL (0.00-0.20); Basophils % (Auto) 0.7 % (0.0-2.0); Eosinophils # (Auto) 0.46 K/mcL (0.00-0.70); Eosinophils % (Auto) 4.4 % (0.0-7.0); Hematocrit 27.1 % (41.0-55.0); Hemoglobin 9.3 g/dL (13.5-16.5); Lymphocytes # (Auto) 0.91 K/mcL (1.50-4.80); Lymphocytes % (Auto) 8.8 % (15.0-49.0); Mean Cell Volume 77.9 fL (80.0-100.0); Mean Corpuscular HGB Conc 34.3 g/dL (31.0-36.0); Monocytes # (Auto) 2.31 K/mcL (0.10-0.90); Monocytes % (Auto) 22.3 % (1.0-12.0); Neutrophils % (Auto) 63.8 % (38.0-78.0); Platelet Count 192 K/mcL (140-440); RBC 3.48 M/mcL (4.50-5.90); Red Cell Distribution Width 26.3 % (11.5-14.5); WBC 10.4 K/mcL (4.5-11.0)
--- NOTE | 2021-01-23 16:51 | Cat Scan Report ---
CLINICAL INFORMATION: Diffuse abdominal pain. Liver failure COMPARISON: Abdomen and pelvic CT 01/05/2021 TECHNIQUE: Following enteric contrast, 80 cc of Isovue-370 were injected intravenously, and 60 seconds later, 0.625 mm helical slices were obtained from the mid heart through the subtrochanteric regions. Following reconstruction, 2.5 mm sagittal, coronal and axial reformatted images were processed and reviewed at bone, lung and soft tissue windows. Five minutes later, 0.625 mm helical slices were obtained from the mid heart through the kidneys and viewed at soft tissue windows.The exam was performed using radiation dose optimization techniques including, but not limited to, automated exposure control, adjustment of the mA and/or kV according to patient size and use of iterative reconstruction technique. FINDINGS: Lung bases show COPD and scattered scarring. The left pleural effusion, seen on CT over one week prior, has resolved. The heart is mildly enlarged but unchanged. Wall thickening of the distal thoracic esophagus appreciated with may indicate peptic disease Abdominal images show severe cirrhotic changes featuring diminutive liver with irregular cortex and marked attenuation heterogeneity. Multiple low-attenuation lesions, ranging up to 3.9 cm in the left hepatic lobe, are unchanged from most recent study. They're thought to represent multifocal hepatoma. The portal vein and tributaries are mildly enlarged with mild varices and perigastric and splenic regions. In addition, there is mild recanalization of the umbilical vein. Large amount of ascites, distributed throughout the abdomen and pelvis, has increased. Both kidneys, adrenal glands, pancreas and aorta are normal in size and attenuation. Splenectomy changes noted. There is no free air or adenopathy. Pelvic images show prostate and seminal vesicles be normal. The urinary bladder is mildly distended. Stomach, small large bowel are symmetrically dilated compatible with ileus. There is mild thickening of the wall and rugal folds of the stomach. There is also thickening of the wall and plicae muscularis folds of the small bowel likely reflecting edema related to cirrhosis. Bone windows show no osseous abnormality. IMPRESSION: 1. Severe cirrhosis with portal hypertension with enlarged portal veins and varices in the tributaries including the perigastric region. There is recanalization of the umbilical vein. Large amount of ascites, throughout the abdomen and pelvis, has increased from the comparison exam over one week prior. 2. Mild gastric wall thickening and thickening of the wall and plicae circulares folds of the small bowel. This likely reflects edema related to cirrhosis. 3. Multiple low-attenuation lesions within the liver, ranging up to 4 cm left hepatic lobe, thought to represent multifocal hepatoma with associated satellite lesions. Interpreted and Authenticated by: Cristian Ozuna 01/23/21
--- NOTE | 2021-01-23 16:52 | Cat Scan Report ---
CLINICAL INFORMATION: Decreased mental status COMPARISON: PET/CT 11/18/2020 TECHNIQUE: 2.5 mm helical slices were obtained in the skull base to vertex. Following reconstruction, axial reformatted images were reviewed at bone and parenchymal windows. The exam was performed using radiation dose optimization techniques including, but not limited to, automated exposure control, adjustment of the mA and/or kV according to patient size and use of iterative reconstruction technique. FINDINGS: The ventricles, sulci, fissures, and cisterns are normal in size and configuration. No extra-axial fluid collections are identified. The cerebrum, brainstem and cerebellum are unremarkable. There is no evidence of hemorrhage, mass effect, or edema. Bone windows show no osseous abnormality. IMPRESSION: Normal head CT without contrast. Interpreted and Authenticated by: Cristian Ozuna 01/23/21
[2021-01-23 17:00] LABS: ALT/SGPT 34 U/L (<40); AST/SGOT 77 U/L (<40); Albumin 2.6 gm/dL (3.2-5.2); Albumin/Globulin Ratio 0.8 (1.0-2.3); Alkaline Phosphatase 239 U/L (39-117); Bilirubin,Total 3.5 mg/dL (0.1-1.0); Blood Urea Nitrogen 17 mg/dL (8-23); Calcium 8.7 mg/dL (8.6-10.4); Carbon Dioxide 31 mmol/L (22-30); Chloride 102 mmol/L (96-108); Globulin 3.2 gm/dL (2.2-3.7); Glomerular Filtration Rate 95; Glucose 103 mg/dL (70-105)
[2021-01-23 17:03] LABS: Alcohol, Blood < 10.0 mg/dL; Alcohol,Blood < 0.010 gm/dL (<0.010)
--- NOTE | 2021-01-23 19:14 | Emergency Department Note ---
HPI General Chief complaint: Weakness Stated complaint: leg and abdomen swelling Time Seen by Provider: 01/23/21 15:16 Source: patient Mode of arrival: ambulatory Limitations: no limitations History of Present Illness HPI Narrative: Narrative: Patient is a 65-year-old male with history of terminal liver disease who 3 days ago stopped taking his lactulose. His today noticed him to be with difficulties in communication and overall altered mental status. Patient is seen by Jose Carlos Rodriguez. I personally interviewed and evaluate the patient and agree with the evaluation diagnosis and treatment plan as discussed with Mr. Rodriguez. I have spoken with patient's who is able to openly discuss potential thoughts of simply putting him on hospice care but at the current time is desirous of evaluating for any potential improvement on reinitiation of the lactulose. She further goes on to note he is with planned peritoneal drain placement for next week as well as palliative chemotherapy although it sounds as though they are still a bit ambivalent as far as receiving chemotherapy and the current status. At the current time, patient is with planned admission for further lactulose therapy. Related Data Home Medications Medication Instructions Recorded Confirmed folic acid 1 mg PO DAILY 07/03/20 01/23/21 Previous Rx's Medication Instructions Recorded lactulose 20 gram/30 mL oral 20 g PO BID #3000 ml 07/19/20 solution baclofen 5 mg tablet 5 mg PO TID #90 tab 09/10/20 duloxetine 30 mg capsule,delayed See Rx Instructions PO .COMPLEX 11/29/20 release #90 cap tramadol 50 mg tablet 50 mg PO TID PRN #90 tab 11/29/20 spironolactone 100 mg tablet 100 mg PO QAM #30 tab 12/10/20 oxycodone 10 mg tablet 10 mg PO QID #120 tab 01/18/21 Allergies Allergy/AdvReac Type Severity Reaction Status Date / Time levofloxacin [From Levaquin] Allergy Intermediate Redness of Verified 01/23/21 15:03 Skin adhesive tape AdvReac Intermediate skin Verified 01/23/21 15:03 sores, irritation Review of Systems ROS ROS Narrative: Narrative: PFSH Narrative Patient History Narrative: Narrative: Medical/Surgical/Family History All Active Problems (Updated 01/23/21 @ 20:01 by Jose Carlos Rodriguez PA-C) Nausea (Acute) HCC (hepatocellular carcinoma) (Acute) Abdominal ascites (Acute) COPD (chronic obstructive pulmonary disease) (Acute) Ascites (Acute) HCC (hepatocellular carcinoma) (Acute) Abdominal pain, acute, left lower quadrant (Acute) Ascites (Acute) 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) Cirrhosis (Acute) Small bowel obstruction, partial (Acute) Acute hepatic encephalopathy (Acute) Hematochezia (Acute) 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) Fall (Acute) Depression (Acute) Constipation (Acute) Abdominal pain (Acute) Colitis (Acute) Liver malignancy (Acute) Acute CVA (cerebrovascular accident) (Acute) Tobacco dependence due to cigarettes (Chronic) Atrial fibrillation (Acute) SBP (spontaneous bacterial peritonitis) (Acute) Lactic acid acidosis (Acute) Sepsis (Acute) Cirrhosis of liver with ascites (Acute) Post-splenectomy (Chronic) Elevated troponin (Acute) CHF (congestive heart failure) (Acute) Ascites due to alcoholic cirrhosis (Acute) Hepatitis C (Chronic) Encephalopathy (Acute) Liver mass, left lobe (Acute) Reactive airway disease with acute exacerbation (Chronic) Sciatica (Acute) Medical History (Updated 01/23/21 @ 20:01 by Jose Carlos Rodriguez PA-C) Chronic back pain Depression Hepatitis C History of liver cancer Hypertension Tobacco dependence due to cigarettes Surgical History History of splenectomy Post-splenectomy Social History Smoking Status: Current every day smoker Exam Narrative Narrative: Narrative: General Limitations: no limitations Course Vital Signs Vital signs: Vital Signs Temperature 97.0 F 01/23/21 14:59 Pulse Rate 96 H 01/23/21 14:59 Respiratory Rate 16 01/23/21 14:59 Blood Pressure 137/62 01/23/21 14:59 Pulse Oximetry (%) 98 01/23/21 14:59 Temperature 98.1 F 01/23/21 21:32 Pulse Rate 100 H 01/23/21 21:32 Respiratory Rate 12 01/23/21 21:32 Blood Pressure 134/68 01/23/21 21:32 Pulse Oximetry (%) 97 01/23/21 21:32 MDM MDM Narrative Medical decision making narrative: Narrative: Lab Data Result diagrams: 01/23/21 15:50 01/23/21 15:49 Labs: Lab Results 01/23/21 01/23/21 01/23/21 Range/Units 15:49 15:49 15:49 WBC (4.5-11.0) K/mcL RBC (4.50-5.90) M/mcL Hgb (13.5-16.5) g/dL Hct (41.0-55.0) % MCV (80.0-100.0) fL MCH (26.0-34.0) pg MCHC (31.0-36.0) g/dL RDW (11.5-14.5) % Plt Count (140-440) K/mcL MPV (7.4-10.4) fL Neut % (Auto) (38.0-78.0) % Lymph % (Auto) (15.0-49.0) % [place] % (Auto) (1.0-12.0) % Eos % (Auto) (0.0-7.0) % Baso % (Auto) (0.0-2.0) % Lymph # (Auto) (1.50-4.80) K/mcL [place] # (Auto) (0.10-0.90) K/mcL Eos # (Auto) (0.00-0.70) K/mcL Baso # (Auto) (0.00-0.20) K/mcL Absolute Neutrophils (1.80-8.00) K/mcL Sodium 136 (133-145) mmol/L Potassium 5.0 (3.3-5.1) mmol/L Chloride 102 (96-108) mmol/L Carbon Dioxide 31 H (22-30) mmol/L Anion Gap 3.0 L (8.0-16.0) BUN 17 (8-23) mg/dL Creatinine 0.8 (0.7-1.2) mg/dL POC Creatinine 0.9 (0.6-1.2) mg/dL GFR Calculation 95 Glucose 103 (70-105) mg/dL Calcium 8.7 (8.6-10.4) mg/dL Total Bilirubin 3.5 H (0.1-1.0) mg/dL AST 77 H (<40) U/L ALT 34 (<40) U/L Alkaline Phosphatase 239 H (39-117) U/L Ammonia 130 H (16-60) umol/L Total Protein 5.8 L (5.9-8.4) gm/dL Albumin 2.6 L (3.2-5.2) gm/dL Globulin 3.2 (2.2-3.7) gm/dL Albumin/Globulin Ratio 0.8 L (1.0-2.3) Lipase 31 (7-60) U/L Urine Color Urine Appearance (Clear) Urine pH (5.0-9.0) Ur Specific [place] (1.000-1.035) Urine Protein (Negative) mg/dL Urine Glucose (UA) (Negative) mg/dL Urine Ketones (Negative) mg/dL Urine Occult Blood (Negative) mg/dL Urine Nitrate (Negative) Urine Bilirubin (Negative) mg/dL Urine Urobilinogen mg/dL Ur Leukocyte Esterase (Negative) /ug Urine RBC (0-3) /hpf Urine WBC (0-4) /hpf Ur Squamous Epith Cells (0-4) /hpf Urine Bacteria (0) /hpf Urine Mucus (None) /hpf Ur Culture Indicated? Ethyl Alcohol < 0.010 (<0.010) gm/dL 01/23/21 01/23/21 Range/Units 15:50 20:12 WBC 10.4 (4.5-11.0) K/mcL RBC 3.48 L (4.50-5.90) M/mcL Hgb 9.3 L (13.5-16.5) g/dL Hct 27.1 L (41.0-55.0) % MCV 77.9 L (80.0-100.0) fL MCH 26.7 (26.0-34.0) pg MCHC 34.3 (31.0-36.0) g/dL RDW 26.3 H (11.5-14.5) % Plt Count 192 (140-440) K/mcL MPV 11.0 H (7.4-10.4) fL Neut % (Auto) 63.8 (38.0-78.0) % Lymph % (Auto) 8.8 L (15.0-49.0) % [place] % (Auto) 22.3 H (1.0-12.0) % Eos % (Auto) 4.4 (0.0-7.0) % Baso % (Auto) 0.7 (0.0-2.0) % Lymph # (Auto) 0.91 L (1.50-4.80) K/mcL [place] # (Auto) 2.31 H (0.10-0.90) K/mcL Eos # (Auto) 0.46 (0.00-0.70) K/mcL Baso # (Auto) 0.07 (0.00-0.20) K/mcL Absolute Neutrophils 6.61 (1.80-8.00) K/mcL Sodium (133-145) mmol/L Potassium (3.3-5.1) mmol/L Chloride (96-108) mmol/L Carbon Dioxide (22-30) mmol/L Anion Gap (8.0-16.0) BUN (8-23) mg/dL Creatinine (0.7-1.2) mg/dL POC Creatinine (0.6-1.2) mg/dL GFR Calculation Glucose (70-105) mg/dL Calcium (8.6-10.4) mg/dL Total Bilirubin (0.1-1.0) mg/dL AST (<40) U/L ALT (<40) U/L Alkaline Phosphatase (39-117) U/L Ammonia (16-60) umol/L Total Protein (5.9-8.4) gm/dL Albumin (3.2-5.2) gm/dL Globulin (2.2-3.7) gm/dL Albumin/Globulin Ratio (1.0-2.3) Lipase (7-60) U/L Urine Color [place] Urine Appearance Clear (Clear) Urine pH 7.0 (5.0-9.0) Ur Specific [place] 1.040 (1.000-1.035) Urine Protein Negative (Negative) mg/dL Urine Glucose (UA) Negative (Negative) mg/dL Urine Ketones Negative (Negative) mg/dL Urine Occult Blood Negative (Negative) mg/dL Urine Nitrate Negative (Negative) Urine Bilirubin Negative (Negative) mg/dL Urine Urobilinogen 4.0 A mg/dL Ur Leukocyte Esterase Negative (Negative) /ug Urine RBC < 1 (0-3) /hpf Urine WBC 1 (0-4) /hpf Ur Squamous Epith Cells 0 (0-4) /hpf Urine Bacteria None (0) /hpf Urine Mucus Few A (None) /hpf Ur Culture Indicated? No Ethyl Alcohol (<0.010) gm/dL ED POC Tests ED POC Tests: MARCY - Influenza A Negative MARCY - Influenza B Negative MARCY - SARS Antigen Negative CC TIME Critical Care Time Attestation: I have spent 35 minutes in the evaluation, diagnosis, and treatment, exclusive of separate billable procedures in this patient with end stage liver disease and hepatic encephalopathy causing altered mental status. Discharge Plan Patient/Caregiver Discharge Instructions Pt seen by POLICY CANCELLATION CLERK/PA only: No Clinical Impression: Acute hepatic encephalopathy Patient Disposition: Xfer As Inpt ([facility]) Discharge Date/Time: 01/23/21 21:13
[2021-01-23] MEDS ORDERED: LACTULOSE 20 GM/30 ML ORAL.SOL PO ONE (20:14)
[2021-01-23] MEDS ORDERED: LORazepam 2 MG/ML VIAL IV ONE ×2 (20:15→22:02)
--- NOTE | 2021-01-23 20:22 | Internal Med History&Physical ---
HPI History of Present Illness Patient information: Note initiated : 01/23/21 at 8:19 pm Service Date, if different from initiated Date: [] Patient: Neal Bolaños a 65 y/o M admitted on for leg and abdomen swelling. Chief Complaint: Confusion/abdominal swelling History of present illness: Mr. Bolaños is a 65 year old M with a history of liver malignancy with metastasis on treatment for the last 4 years. Patient has been on palliative medicine and has been working towards hospice transition. For the last 3 days patient has become increasingly agitated confused and stopped taking his lactulose and pain medications. He was brought in by his due to significant change in mental status and agitation. Initial work-up was consistent with hepatic encephalopathy. Patient was started on lactulose and subsequently hospitalist service was consulted At the time of my evaluation patient is accompanied with his . She was able to answer most the questions. Patient is totally confused with a GCS of 6. He is unable to provide any meaningful history or participate in review of systems. He does endorses to tense swollen abdomen however no apparent respiratory distress. Per patient did not have any recent fever, diarrhea, bloody emesis or worsening abdominal pain but endorses to abdominal distention. 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) Cirrhosis (Acute) Small bowel obstruction, partial (Acute) Acute hepatic encephalopathy (Acute) Hematochezia (Acute) 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) Fall (Acute) Depression (Acute) Constipation (Acute) Abdominal pain (Acute) Colitis (Acute) Liver malignancy (Acute) Acute CVA (cerebrovascular accident) (Acute) Tobacco dependence due to cigarettes (Chronic) Atrial fibrillation (Acute) SBP (spontaneous bacterial peritonitis) (Acute) Lactic acid acidosis (Acute) Sepsis (Acute) Cirrhosis of liver with ascites (Acute) Post-splenectomy (Chronic) Elevated troponin (Acute) CHF (congestive heart failure) (Acute) Ascites due to alcoholic cirrhosis (Acute) Hepatitis C (Chronic) Encephalopathy (Acute) Liver mass, left lobe (Acute) Reactive airway disease with acute exacerbation (Chronic) Sciatica (Acute) Medical History (Updated 01/23/21 @ 20:01 by Jose Carlos Rodriguez PA-C) Chronic back pain Depression Hepatitis C History of liver cancer Hypertension Tobacco dependence due to cigarettes Surgical History History of splenectomy Post-splenectomy Social History smoking status: Unknown if ever smoked MEDS/ALLERGIES Home Medications and Allergies Home Medications Medication Instructions Recorded Confirmed Type folic acid 1 mg PO DAILY 07/03/20 01/23/21 History lactulose 20 gram/30 mL oral 20 g PO BID #3000 ml 07/19/20 01/23/21 Rx solution baclofen 5 mg tablet 5 mg PO TID #90 tab 09/10/20 01/23/21 Rx duloxetine 30 mg capsule,delayed See Rx Instructions PO .COMPLEX 11/29/20 01/23/21 Rx release #90 cap tramadol 50 mg tablet 50 mg PO TID PRN #90 tab 11/29/20 01/23/21 Rx spironolactone 100 mg tablet 100 mg PO QAM #30 tab 12/10/20 01/23/21 Rx oxycodone 10 mg tablet 10 mg PO QID #120 tab 01/18/21 01/23/21 Rx Allergies Allergy/AdvReac Type Severity Reaction Status Date / Time levofloxacin [From Levaquin] Allergy Intermediate Redness of Verified 01/23/21 15:03 Skin adhesive tape AdvReac Intermediate skin Verified 01/23/21 15:03 sores, irritation EXAM Constitutional Vitals: Temp Pulse Resp BP Pulse Ox 97.0 F 116 H 15 145/72 97 01/23/21 14:59 01/23/21 20:15 01/23/21 20:15 01/23/21 20:15 01/23/21 20:15 Confused and agitated Head normocephalic Oral cavity moist No ear nose discharge Mild scleral icterus, eye movement symmetrical Neck supple no lymphadenopathy S1-S2 tachycardia Nonlabored breathing Distended/tense but nontender abdomen Lower extremity no cyanosis clubbing or joint swelling Skin no suspicious lesion Psych anxious, agitated, GCS 5 Neuro Limited exam DATA Data Completed and Pending Labs: Labs from last 24 hours 01/23/21 01/23/21 01/23/21 20:12 15:50 15:49 WBC 10.4 RBC 3.48 L Hgb 9.3 L Hct 27.1 L MCV 77.9 L MCH 26.7 MCHC 34.3 RDW 26.3 H Plt Count 192 MPV 11.0 H Neut % (Auto) 63.8 Lymph % (Auto) 8.8 L [place] % (Auto) 22.3 H Eos % (Auto) 4.4 Baso % (Auto) 0.7 Lymph # (Auto) 0.91 L [place] # (Auto) 2.31 H Eos # (Auto) 0.46 Baso # (Auto) 0.07 Absolute Neutrophils 6.61 Sodium Potassium Chloride Carbon Dioxide Anion Gap BUN Creatinine POC Creatinine GFR Calculation Glucose Calcium Total Bilirubin AST ALT Alkaline Phosphatase Ammonia Total Protein Albumin Globulin Albumin/Globulin Ratio Lipase Urine Color Pending Urine Appearance Pending Urine pH Pending Ur Specific [place] Pending Urine Protein Pending Urine Glucose (UA) Pending Urine Ketones Pending Urine Occult Blood Pending Urine Nitrate Pending Urine Bilirubin Pending Urine Urobilinogen Pending Ur Leukocyte Esterase Pending Ethyl Alcohol < 0.010 01/23/21 01/23/21 15:49 15:49 WBC RBC Hgb Hct MCV MCH MCHC RDW Plt Count MPV Neut % (Auto) Lymph % (Auto) [place] % (Auto) Eos % (Auto) Baso % (Auto) Lymph # (Auto) [place] # (Auto) Eos # (Auto) Baso # (Auto) Absolute Neutrophils Sodium 136 Potassium 5.0 Chloride 102 Carbon Dioxide 31 H Anion Gap 3.0 L BUN 17 Creatinine 0.8 POC Creatinine 0.9 GFR Calculation 95 Glucose 103 Calcium 8.7 Total Bilirubin 3.5 H AST 77 H ALT 34 Alkaline Phosphatase 239 H Ammonia 130 H Total Protein 5.8 L Albumin 2.6 L Globulin 3.2 Albumin/Globulin Ratio 0.8 L Lipase 31 Urine Color Urine Appearance Urine pH Ur Specific [place] Urine Protein Urine Glucose (UA) Urine Ketones Urine Occult Blood Urine Nitrate Urine Bilirubin Urine Urobilinogen Ur Leukocyte Esterase Ethyl Alcohol A/P Narrative A/P Narrative: * Hepatic [id number] liver disease secondary to metastatic hepatocellular carcinoma. Start lactulose. Retention enema if unable to take p.o. * End-stage liver disease/hepatocellular carcinoma. Patient transitioning to hospice per . We will continue pain and symptom management. * Malignant ascites-no evidence of respiratory compromise or paracentesis at this time. Continue spironolactone * Anxiety disorder on duloxetine * Chronic pain on oxycodone * DNR comfort care Plan \ * Inpatient admission * Lactulose retention enema * Comfort interventions * Case management to coordinate hospice transition * Nutrition support Time Spent With Patient Time: Total time spent is greater than 50% in coordination of care (as documented) at patient's floor/unit and/or counseling patient:
[2021-01-23 21:07] LABS: Appearance,Urine CLEAR (Clear); Bilirubin,Urine Negative (Negative); Color,Urine AMBER; Culture Indicated,Urine No; Glucose,Urine (UA) Negative (Negative); Ketones,Urine Negative (Negative); Leukocyte Esterase,Urine Negative /ug (Negative); Mucus,Urine FEW /hpf; Nitrate,Urine Negative (Negative); Protein,Urine Negative (Negative); Urine Blood Negative (Negative); Urine RBC < 1 /hpf (0-3); Urine Squamous Epithelial Cell 0 /hpf (0-4); Urine WBC 1 /hpf (0-4)
[2021-01-23] MEDS ORDERED: ONDANSETRON 4 MG ODT TABLET SL PRN (21:22)
[2021-01-23] MEDS ORDERED: BISACODYL 10 MG SUPP.RECT PR PRN (21:22)
[2021-01-23] MEDS ORDERED: MELATONIN 3 MG TABLET PO PRN (21:22)
[2021-01-23] MEDS ORDERED: ONDANSETRON 4 MG/2 ML VIAL IV PRN (21:22)
[2021-01-23] MEDS ORDERED: MAGNESIUM SULFATE 2 GM/50 ML BAG IV PRN (21:22)
[2021-01-23] MEDS ORDERED: POLYETHYLENE GLYCOL 3350 17 GM PACKET PO PRN (21:22)
[2021-01-23] MEDS ORDERED: ACETAMINOPHEN 325 MG TABLET PO PRN (21:22)
[2021-01-23] MEDS ORDERED: POTASSIUM CHLORIDE 40 MEQ in DEXTROSE 5% IN WATER 500 ML IV PRN (21:22)
[2021-01-23] MEDS ORDERED: ACETAMINOPHEN 650 MG/65 ML BAG IV PRN (21:22)
[2021-01-23] MEDS ORDERED: guaiFENesin/CODEINE 10 ML UDC PO PRN (21:22)
[2021-01-23] MEDS ORDERED: LACTULOSE 20 GM/30 ML ORAL.SOL PR ONE (21:45)
[2021-01-23] MEDS: SENNOSIDES/DOCUSATE SODIUM 1 TAB TABLET PO SCH (21:51)
[2021-01-23] MEDS: DOCUSATE SODIUM 100 MG CAPSULE PO SCH (21:51)
[2021-01-23] MEDS: 0.9 % SODIUM CHLORIDE 10 ML SYRINGE IV SCH (21:52)
[2021-01-23] MEDS: LACTULOSE 20 GM/30 ML ORAL.SOL PO SCH (21:52)
[2021-01-23] MEDS: HYDROmorphone 0.5 MG/0.5 ML SYRINGE IV PRN (21:53)
[2021-01-23] MEDS ORDERED: LACTULOSE 20 GM/30 ML ORAL.SOL ONE (21:58)
[2021-01-23] MEDS: HEPARIN 5,000 UNIT/ML VIAL SQ SCH (22:08)
[2021-01-23] MEDS ORDERED: LORazepam 2 MG/ML VIAL ONE (22:14)
[2021-01-24] MEDS: 0.9 % SODIUM CHLORIDE 10 ML SYRINGE IV SCH ×3 (04:33→21:46)
[2021-01-24 06:35] LABS: Eosinophils % (Auto) 3.1 % (0.0-7.0); Hematocrit 26.7 % (41.0-55.0); Hemoglobin 9.1 g/dL (13.5-16.5); Lymphocytes # (Auto) 1.13 K/mcL (1.50-4.80); Lymphocytes % (Auto) 11.5 % (15.0-49.0); Mean Cell Volume 77.2 fL (80.0-100.0); Mean Corpuscular HGB Conc 34.1 g/dL (31.0-36.0); Mean Platelet Volume 10.8 fL (7.4-10.4); Monocytes # (Auto) 2.27 K/mcL (0.10-0.90); Monocytes % (Auto) 23.1 % (1.0-12.0); Neutrophils % (Auto) 61.3 % (38.0-78.0); Platelet Count 197 K/mcL (140-440); RBC 3.46 M/mcL (4.50-5.90); Red Cell Distribution Width 25.8 % (11.5-14.5); WBC 9.8 K/mcL (4.5-11.0)
[2021-01-24 07:07] LABS: ALT/SGPT 29 U/L (<40); AST/SGOT 70 U/L (<40); Albumin 2.3 gm/dL (3.2-5.2); Albumin/Globulin Ratio 0.8 (1.0-2.3); Alkaline Phosphatase 199 U/L (39-117); Bilirubin,Direct 2.4 mg/dL (<0.3); Bilirubin,Total 4.9 mg/dL (0.1-1.0); Blood Urea Nitrogen 16 mg/dL (8-23); Calcium 8.5 mg/dL (8.6-10.4); Carbon Dioxide 29 mmol/L (22-30); Chloride 102 mmol/L (96-108); Glomerular Filtration Rate 100; Glucose 95 mg/dL (70-105); Lactate Dehydrogenase 268 U/L (135-225); Phosphorous 3.1 mg/dL (2.5-4.5); Triglycerides 46 mg/dL (<150); Uric Acid 7.9 mg/dL (2.5-8.0)
[2021-01-24] MEDS: HEPARIN 5,000 UNIT/ML VIAL SQ SCH ×2 (09:16→21:46)
[2021-01-24] MEDS: DOCUSATE SODIUM 100 MG CAPSULE PO SCH ×2 (09:17→21:46)
[2021-01-24] MEDS: MULTIVIT,THER IRON,CA,FA & MIN 1 TABLET PO SCH (09:17)
[2021-01-24] MEDS: LACTULOSE 20 GM/30 ML ORAL.SOL PO SCH ×4 (09:17→21:20)
--- NOTE | 2021-01-24 11:26 | Internal Med Progress Note ---
SUBJECTIVE Subjective Patient information: Note initiated : 01/24/21 at 11:22 am Service Date, if different from initiated Date: [] Patient: Neal Bolaños 65 y/o M admitted on 01/23/21 for leg and abdomen swelling. Chief Complaint: [] Interval history: History of present illness: Mr. Bolaños is a 65 year old M with a history of liver malignancy with metastasis on treatment for the last 4 years. Patient has been on palliative medicine and has been working towards hospice transition. For the last 3 days patient has become increasingly agitated confused and stopped taking his lactulose and pain medications. He was brought in by his due to significant change in mental status and agitation. Initial work-up was consistent with hepatic encephalopathy. Patient was started on lactulose and subsequently hospitalist service was consulted At the time of my evaluation patient is accompanied with his . She was able to answer most the questions. Patient is totally confused with a GCS of 6. He is unable to provide any meaningful history or participate in review of systems. He does endorses to tense swollen abdomen however no apparent respiratory distress. Per patient did not have any recent fever, diarrhea, bloody emesis or worsening abdominal pain but endorses to abdominal distention. 01/24-patient remains encephalopathic. Status post tension enema. Continue further enemas. at bedside. Appears very distressed. Case discussed with patient's daughter on phone along with . They would want to continue existing treatment to improve encephalopathy. Also consulted GI for further input. expressed a desire to initiate hospice and towards that flight Case management was consulted to explore available resources. Constitutional Vitals: Vital Signs Temp Pulse Resp BP Pulse Ox 97.4 F 100 H 15 138/64 97 01/24/21 04:26 01/24/21 04:26 01/24/21 04:26 01/24/21 04:26 01/24/21 04:26 Period Temp Pulse Resp BP Sys/[place] Pulse Ox Last 24 Hr 97.0 F-98.1 F 35-116 11- 100-145/62-84 89-99 Intake and Output 01/23/21 01/24/21 01/24/21 21:59 05:59 13:59 Intake Total 0 Balance 0 Weight 68.039 kg remains unresponsive Nonlabored breathing Distended abdomen with fluid thrill. Improving lymphedema Intake & Output: Intake & Output 01/23/21 01/24/21 01/24/21 21:59 05:59 13:59 Intake Total 0 Balance 0 Weight 68.039 kg Intake: Oral 0 Other: Stool Size Moderate Stool Color Brown Stool Consistency Formed Loose # Bowel Movements 1 OBJ DATA Labs CBC & Chem 7: 01/24/21 05:48 01/24/21 05:48 Labs: Abnormal Lab Results 01/24/21 01/24/21 01/23/21 05:48 05:48 20:12 RBC 3.46 L Hgb 9.1 L Hct 26.7 L MCV 77.2 L RDW 25.8 H MPV 10.8 H Lymph % (Auto) 11.5 L [place] % (Auto) 23.1 H Lymph # (Auto) 1.13 L [place] # (Auto) 2.27 H Carbon Dioxide Anion Gap 6.0 L Calcium 8.5 L Total Bilirubin 4.9 H Direct Bilirubin 2.4 H GGT 100 H AST 70 H Alkaline Phosphatase 199 H Ammonia Lactate Dehydrogenase 268 H Total Protein 5.3 L Albumin 2.3 L Albumin/Globulin Ratio 0.8 L Urine Urobilinogen 4.0 A Urine Mucus Few A 01/23/21 01/23/21 01/23/21 15:50 15:49 15:49 RBC 3.48 L Hgb 9.3 L Hct 27.1 L MCV 77.9 L RDW 26.3 H MPV 11.0 H Lymph % (Auto) 8.8 L [place] % (Auto) 22.3 H Lymph # (Auto) 0.91 L [place] # (Auto) 2.31 H Carbon Dioxide 31 H Anion Gap 3.0 L Calcium Total Bilirubin 3.5 H Direct Bilirubin GGT AST 77 H Alkaline Phosphatase 239 H Ammonia 130 H Lactate Dehydrogenase Total Protein 5.8 L Albumin 2.6 L Albumin/Globulin Ratio 0.8 L Urine Urobilinogen Urine Mucus Meds: Medications Acetaminophen (Acetaminophen 325 Mg Tablet) 650 mg PO Q4-6HP PRN; Protocol PRN Reason: Per Pain Protocol/Fever > 101 Bisacodyl (Bisacodyl 10 Mg Supp.Rect) 10 mg AR Q2-3DAYS PRN PRN Reason: Constipation Docusate Sodium (Docusate Sodium 100 Mg Capsule) 100 mg PO BID ANNELIESE Last Admin: 01/24/21 09:17 Dose: Not Given Documented by: Guaifenesin/Codeine Phosphate (Guaifenesin/Codeine 10 Ml Udc) 10 ml PO Q4HP PRN PRN Reason: Cough Heparin Sodium (Porcine) (Heparin 5,000 Unit/Ml Vial) 5,000 unit SQ Q12 [facility] Last Admin: 01/24/21 09:16 Dose: 5,000 unit Documented by: Hydromorphone HCl (Hydromorphone 0.5 Mg/0.5 Ml Syringe) 0.25 - 0.5 mg IV Q4HP PRN; Protocol PRN Reason: Per Pain Protocol Last Admin: 01/23/21 21:53 Dose: 0.5 mg Documented by: Potassium Chloride 40 meq/ (Dextrose) 520 mls @ 130 mls/hr IV UD PRN PRN Reason: K+ = or < 3.5 Acetaminophen (Ofirmev) 650 mg in 65 mls @ 130 mls/hr IV Q6HP PRN; Protocol PRN Reason: Per Pain Protocol/Fever > 101 Magnesium Sulfate (Magnesium Sulfate) 2 gm in 50 mls @ 50 mls/hr IV UD PRN PRN Reason: MG = or < 1.7 Iron Carb/Multivit/Hayes/Folic Acid (Multivit,Ther Iron,Ca,Fa & Min 1 Tablet) 1 tab PO DAILY [facility] Last Admin: 01/24/21 09:17 Dose: Not Given Documented by: Lactulose (Lactulose 20 Gm/30 Ml Oral.Paula) 30 gm PO TID [facility] Last Admin: 01/24/21 09:17 Dose: Not Given Documented by: Lactulose (Lactulose 20 Gm/30 Ml Oral.Paula) 200 gm AR BID [facility] Lorazepam (Lorazepam 2 Mg/Ml Vial) 0.5 mg IV Q4-6HP PRN PRN Reason: ANXIETY/SEDATION Melatonin (Melatonin 3 Mg Tablet) 3 mg PO HSP PRN PRN Reason: Insomnia Ondansetron HCl (Ondansetron 4 Mg Odt Tablet) 4 mg SL Q4-6HP PRN; Protocol PRN Reason: Nausea And Vomiting Ondansetron HCl (Ondansetron 4 Mg/2 Ml Vial) 4 mg IV Q4-6HP PRN; Protocol PRN Reason: Nausea And Vomiting Polyethylene Glycol (Polyethylene Glycol 3350 17 Gm Packet) 17 gm PO DAILYP PRN PRN Reason: Constipation Senna/Docusate Sodium (Sennosides/Docusate Sodium 1 Tab Tablet) 1 tab PO HS [facility] Last Admin: 01/23/21 21:51 Dose: Not Given Documented by: Sodium Chloride (0.9 % Sodium Chloride 10 Ml Syringe) 10 ml IV Q8 [facility] Last Admin: 01/24/21 04:33 Dose: 10 ml Documented by: A/P Narrative A/P Narrative: * Hepatic encephalopathy-undergoing lactulose retention enema. No improvement over the last 12 hours. * End-stage liver disease With cirrhosis andascites . No subjective signs of SBP. Follows up with GI. * Anxiety disorder on duloxetine * Chronic pain on oxycodone * DNR comfort care Plan * Lactulose retention enema * GI consult * Possible transition to comfort care/hospice Time Spent With Patient Time: Total time spent is greater than 50% in coordination of care (as documented) at patient's floor/unit and/or counseling patient:
[2021-01-24] MEDS: LACTULOSE 20 GM/30 ML ORAL.SOL PR SCH ×2 (12:07→23:45)
--- NOTE | 2021-01-24 15:22 | Internal Medicine Consult Note ---
HPI Data of Consult Patient: known to practice within the last 3 years Consult date: 01/24/21 Primary Care Provider: Vitaliy Chen PA-C Consult Narrative Patient Information: Note initiated : 01/24/21 at 3:09 pm Service Date, if different from initiated Date: [] Patient: eNal Bolaños 65 y/o M admitted on 01/23/21 for leg and abdomen swelling. Chief Complaint: [encephalopathy] Trace is a 65 year old white male with chronic HCV/alcoholic cirrhosis complicated by portal hypertension and encephalopathy. He achieved SVR after a 12 week course of Harvoni in 2018, but unfortunately developed HCC, treated with TACE and, later, with Y90. In the last several months, he has been struggling with increasing trouble with abdominal pain, recurrent ascites and encephalopat hy. Recent MRI showed likely new recurrence of HCC. He decided not to pursue repeat interventional radiology measures but has been seeing [facility] for palliative chemo with nivolumab. He was considering TIPS with Dr. Prado and we'd recently started him on Xifaxan (in addition to his lactulose) as well as midodrine for type II hepatorenal syndrome. However, when I saw him in the office a week or two ago, he'd dramatically increased his use of hydromorphone for chronic pain and was manic. I spoke with PCP regarding this, but Trace was quite reluctant to discontinue hydromorophone. Apparently, over the last week, he has become increasingly lethargic and confused and not able to take any lactulose. It is not clear if his was able to fill his Xifaxan. He was brought to the ER with ammonia level 130. Family is now ready to consider hospice. Roselia is at bedside and I phoned his brother, Lito. 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) Cirrhosis (Acute) Small bowel obstruction, partial (Acute) Acute hepatic encephalopathy (Acute) Hematochezia (Acute) assisted (current) use of antithrombotics/antiplatelets (Acute) Fall (Acute) Depression (Acute) Constipation (Acute) Abdominal pain (Acute) Colitis (Acute) Liver malignancy (Acute) Acute CVA (cerebrovascular accident) (Acute) Tobacco dependence due to cigarettes (Chronic) Atrial fibrillation (Acute) SBP (spontaneous bacterial peritonitis) (Acute) Lactic acid acidosis (Acute) Sepsis (Acute) Cirrhosis of liver with ascites (Acute) Post-splenectomy (Chronic) Elevated troponin (Acute) CHF (congestive heart failure) (Acute) Ascites due to alcoholic cirrhosis (Acute) Hepatitis C (Chronic) Encephalopathy (Acute) Liver mass, left lobe (Acute) Reactive airway disease with acute exacerbation (Chronic) Sciatica (Acute) Medical History Chronic back pain Depression Hepatitis C History of liver cancer Hypertension Tobacco dependence due to cigarettes Surgical History History of splenectomy Post-splenectomy Social History smoking status: Unknown if ever smoked MEDS/ALLERGIES Home Medications and Allergies Home Medications Medication Instructions Recorded Confirmed Type folic acid 1 mg PO DAILY 07/03/20 01/23/21 History lactulose 20 gram/30 mL oral 20 g PO BID #3000 ml 07/19/20 01/23/21 Rx solution baclofen 5 mg tablet 5 mg PO TID #90 tab 09/10/20 01/23/21 Rx duloxetine 30 mg capsule,delayed See Rx Instructions PO .COMPLEX 11/29/20 01/23/21 Rx release #90 cap tramadol 50 mg tablet 50 mg PO TID PRN #90 tab 11/29/20 01/23/21 Rx spironolactone 100 mg tablet 100 mg PO QAM #30 tab 12/10/20 01/23/21 Rx oxycodone 10 mg tablet 10 mg PO QID #120 tab 01/18/21 01/23/21 Rx Allergies Allergy/AdvReac Type Severity Reaction Status Date / Time levofloxacin [From Levaquin] Allergy Intermediate Redness of Verified 01/23/21 15:03 Skin adhesive tape AdvReac Intermediate skin Verified 01/23/21 15:03 sores, irritation EXAM Constitutional Vitals: Temp Pulse Resp BP Pulse Ox 97.5 F 104 H 16 137/71 97 01/24/21 12:00 01/24/21 12:00 01/24/21 12:00 01/24/21 12:00 01/24/21 12:00 Head Head exam: Present atraumatic, normal inspection and normocephalic Eye Eye exam: Present scleral icterus Pupils: Present normal accommodation ENT ENT exam: Present mucous membranes moist and normal external ear exam Neck Neck exam: Present full ROM Respiratory Respiratory exam: Present normal respiratory exam; Absent accessory muscle use GI/Abdominal GI/Abdominal exam: Present normal bowel sounds; Absent organomegaly Additional comments: passed small amount of liquid brown stool during exam. Recently had lactulose enema and lactulose PO Extremities Exam Extremities exam: Present normal inspection and Foot pink and warm; Absent pedal edema Neurological Exam Neurological exam: Present alert and altered; Absent oriented X3 Skin Skin exam: Present dry and warm DATA Data Completed and Pending Labs: Labs from last 24 hours 01/24/21 01/24/21 01/23/21 05:48 05:48 20:12 WBC 9.8 RBC 3.46 L Hgb 9.1 L Hct 26.7 L MCV 77.2 L MCH 26.3 MCHC 34.1 RDW 25.8 H Plt Count 197 MPV 10.8 H Neut % (Auto) 61.3 Lymph % (Auto) 11.5 L [place] % (Auto) 23.1 H Eos % (Auto) 3.1 Baso % (Auto) 1.0 Lymph # (Auto) 1.13 L [place] # (Auto) 2.27 H Eos # (Auto) 0.30 Baso # (Auto) 0.10 Absolute Neutrophils 6.02 Sodium 137 Potassium 4.4 Chloride 102 Carbon Dioxide 29 Anion Gap 6.0 L BUN 16 Creatinine 0.7 POC Creatinine GFR Calculation 100 Glucose 95 Uric Acid 7.9 Calcium 8.5 L Phosphorus 3.1 Magnesium 2.2 Total Bilirubin 4.9 H Direct Bilirubin 2.4 H GGT 100 H AST 70 H ALT 29 Alkaline Phosphatase 199 H Ammonia Lactate Dehydrogenase 268 H Total Protein 5.3 L Albumin 2.3 L Globulin 3.0 Albumin/Globulin Ratio 0.8 L Triglycerides 46 Lipase Urine Color Kellie Urine Appearance Clear Urine pH 7.0 Ur Specific [place] 1.040 Urine Protein Negative Urine Glucose (UA) Negative Urine Ketones Negative Urine Occult Blood Negative Urine Nitrate Negative Urine Bilirubin Negative Urine Urobilinogen 4.0 A Ur Leukocyte Esterase Negative Urine RBC < 1 Urine WBC 1 Ur Squamous Epith Cells 0 Urine Bacteria None Urine Mucus Few A Ur Culture Indicated? No Ethyl Alcohol 01/23/21 01/23/21 01/23/21 15:50 15:49 15:49 WBC 10.4 RBC 3.48 L Hgb 9.3 L Hct 27.1 L MCV 77.9 L MCH 26.7 MCHC 34.3 RDW 26.3 H Plt Count 192 MPV 11.0 H Neut % (Auto) 63.8 Lymph % (Auto) 8.8 L [place] % (Auto) 22.3 H Eos % (Auto) 4.4 Baso % (Auto) 0.7 Lymph # (Auto) 0.91 L [place] # (Auto) 2.31 H Eos # (Auto) 0.46 Baso # (Auto) 0.07 Absolute Neutrophils 6.61 Sodium Potassium Chloride Carbon Dioxide Anion Gap BUN Creatinine POC Creatinine GFR Calculation Glucose Uric Acid Calcium Phosphorus Magnesium Total Bilirubin Direct Bilirubin GGT AST ALT Alkaline Phosphatase Ammonia 130 H Lactate Dehydrogenase Total Protein Albumin Globulin Albumin/Globulin Ratio Triglycerides Lipase Urine Color Urine Appearance Urine pH Ur Specific [place] Urine Protein Urine Glucose (UA) Urine Ketones Urine Occult Blood Urine Nitrate Urine Bilirubin Urine Urobilinogen Ur Leukocyte Esterase Urine RBC Urine WBC Ur Squamous Epith Cells Urine Bacteria Urine Mucus Ur Culture Indicated? Ethyl Alcohol < 0.010 01/23/21 15:49 WBC RBC Hgb Hct MCV MCH MCHC RDW Plt Count MPV Neut % (Auto) Lymph % (Auto) [place] % (Auto) Eos % (Auto) Baso % (Auto) Lymph # (Auto) [place] # (Auto) Eos # (Auto) Baso # (Auto) Absolute Neutrophils Sodium 136 Potassium 5.0 Chloride 102 Carbon Dioxide 31 H Anion Gap 3.0 L BUN 17 Creatinine 0.8 POC Creatinine 0.9 GFR Calculation 95 Glucose 103 Uric Acid Calcium 8.7 Phosphorus Magnesium Total Bilirubin 3.5 H Direct Bilirubin GGT AST 77 H ALT 34 Alkaline Phosphatase 239 H Ammonia Lactate Dehydrogenase Total Protein 5.8 L Albumin 2.6 L Globulin 3.2 Albumin/Globulin Ratio 0.8 L Triglycerides Lipase 31 Urine Color Urine Appearance Urine pH Ur Specific [place] Urine Protein Urine Glucose (UA) Urine Ketones Urine Occult Blood Urine Nitrate Urine Bilirubin Urine Urobilinogen Ur Leukocyte Esterase Urine RBC Urine WBC Ur Squamous Epith Cells Urine Bacteria Urine Mucus Ur Culture Indicated? Ethyl Alcohol A/P Assessment and plan (1) Encephalopathy: Status: Acute Narrative A/P Narrative: In light of Trace's recurrence and worsening encephalopathy, I agree that hospice is reasonable. I have brought samples of Xifaxan 550mg twice daily to try to see if this reverses his encephalopathy. I spoke with his and brother. Time Spent With Patient Time: Total time spent is greater than 50% in coordination of care (as documented) at patient's floor/unit and/or counseling patient: Total time spent with greater than 50% in coordination of care (as documented) at patient's floor/unit and/or counseling patient:: Greater than 35 minutes
[2021-01-24] MEDS: LORazepam 2 MG/ML VIAL IV PRN (20:53)
[2021-01-24] MEDS: SENNOSIDES/DOCUSATE SODIUM 1 TAB TABLET PO SCH (21:20)
[2021-01-24] MEDS: RIFAXIMIN 550 MG TABLET PO SCH (21:20)
[2021-01-24] MEDS: HYDROmorphone 0.5 MG/0.5 ML SYRINGE IV PRN (23:09)
[2021-01-25] MEDS: LORazepam 2 MG/ML VIAL IV PRN ×3 (02:27→11:07)
[2021-01-25] MEDS: 0.9 % SODIUM CHLORIDE 10 ML SYRINGE IV SCH ×3 (06:01→20:49)
[2021-01-25 08:20] LABS: Basophils # (Auto) 0.08 K/mcL (0.00-0.20); Basophils % (Auto) 0.9 % (0.0-2.0); Eosinophils # (Auto) 0.13 K/mcL (0.00-0.70); Eosinophils % (Auto) 1.4 % (0.0-7.0); Hematocrit 30.5 % (41.0-55.0); Hemoglobin 10.6 g/dL (13.5-16.5); Lymphocytes # (Auto) 1.11 K/mcL (1.50-4.80); Lymphocytes % (Auto) 12.1 % (15.0-49.0); Mean Cell Volume 75.9 fL (80.0-100.0); Mean Corpuscular HGB Conc 34.8 g/dL (31.0-36.0); Monocytes # (Auto) 2.32 K/mcL (0.10-0.90); Monocytes % (Auto) 25.4 % (1.0-12.0); Neutrophils % (Auto) 60.2 % (38.0-78.0); Platelet Count 157 K/mcL (140-440); RBC 4.02 M/mcL (4.50-5.90); Red Cell Distribution Width 26.5 % (11.5-14.5); WBC 9.2 K/mcL (4.5-11.0)
[2021-01-25] MEDS: LACTULOSE 20 GM/30 ML ORAL.SOL PO SCH ×2 (08:42→16:21)
[2021-01-25] MEDS: DOCUSATE SODIUM 100 MG CAPSULE PO SCH (08:42)
[2021-01-25] MEDS: HEPARIN 5,000 UNIT/ML VIAL SQ SCH (08:42)
[2021-01-25] MEDS: MULTIVIT,THER IRON,CA,FA & MIN 1 TABLET PO SCH (08:42)
[2021-01-25] MEDS: RIFAXIMIN 550 MG TABLET PO SCH (08:42)
[2021-01-25] MEDS: LACTULOSE 20 GM/30 ML ORAL.SOL PR SCH (08:43)
[2021-01-25 08:59] LABS: ALT/SGPT 40 U/L (<40); AST/SGOT 112 U/L (<40); Albumin 2.8 gm/dL (3.2-5.2); Albumin/Globulin Ratio 0.9 (1.0-2.3); Alkaline Phosphatase 222 U/L (39-117); Bilirubin,Direct 2.8 mg/dL (<0.3); Bilirubin,Total 5.2 mg/dL (0.1-1.0); Blood Urea Nitrogen 13 mg/dL (8-23); Calcium 8.5 mg/dL (8.6-10.4); Carbon Dioxide 23 mmol/L (22-30); Chloride 109 mmol/L (96-108); Globulin 3.2 gm/dL (2.2-3.7); Glomerular Filtration Rate 100; Glucose 100 mg/dL (70-105); Lactate Dehydrogenase 410 U/L (135-225); Phosphorous 2.5 mg/dL (2.5-4.5); Triglycerides 46 mg/dL (<150); Uric Acid 6.4 mg/dL (2.5-8.0)
--- NOTE | 2021-01-25 10:41 | Internal Med Progress Note ---
SUBJECTIVE Subjective Patient information: Note initiated : 01/25/21 at 10:37 am Service Date, if different from initiated Date: [] Patient: Neal Bolaños a 65 y/o M admitted on 01/23/21 for leg and abdomen swelling. Chief Complaint: [] Interval history: History of present illness: Mr. Bolaños is a 65 year old M with a history of liver malignancy with metastasis on treatment for the last 4 years. Patient has been on palliative medicine and has been working towards hospice transition. For the last 3 days patient has become increasingly agitated confused and stopped taking his lactulose and pain medications. He was brought in by his due to significant change in mental status and agitation. Initial work-up was consistent with hepatic encephalopathy. Patient was started on lactulose and subsequently hospitalist service was consulted At the time of my evaluation patient is accompanied with his . She was able to answer most the questions. Patient is totally confused with a GCS of 6. He is unable to provide any meaningful history or participate in review of systems. He does endorses to tense swollen abdomen however no apparent respiratory distress. Per patient did not have any recent fever, diarrhea, bloody emesis or worsening abdominal pain but endorses to abdominal distention. 01/24-patient remains encephalopathic. Status post tension enema. Continue further enemas. at bedside. Appears very distressed. Case discussed with patient's daughter on phone along with . They would want to continue existing treatment to improve encephalopathy. Also consulted GI for further input. expressed a desire to initiate hospice and towards that flight Case management was consulted to explore available resources. 01/25-patient remains encephalopathic. Extensive agitation requiring benzodiaze pine. requested discontinuation of lactulose enemas and other medications. Extensive conversation in the presence of nursing staff/case management and health unit coordinator with patient and her daughter. Family wishes to transition to comfort care/hospice and discontinuation of all aggressive interventions including labs/vital check/all medications directed towards his prior medical health issues. Patient will be discharged to home with hospice while coordination is underway by hospice team and case management to procure hospital bed and other supplies. Constitutional Vitals: Vital Signs Temp Pulse Resp BP Pulse Ox 98.7 F 110 H 20 130/74 99 01/25/21 03:55 01/25/21 07:19 01/25/21 07:19 01/25/21 07:03 01/25/21 07:19 Period Temp Pulse Resp BP Sys/[place] Pulse Ox Last 24 Hr 97.4 F-98.7 F 101-110 16-22 130-143/58-83 97-100 Intake and Output 01/24/21 01/25/21 01/25/21 21:59 05:59 13:59 Intake Total 240 150 Output Total 150 500 Balance 90 -350 Weight 68.674 kg minimally responsive with intermittent agitation distended abdomen Nonlabored breathing Intake & Output: Intake & Output 01/24/21 01/25/21 01/25/21 21:59 05:59 13:59 Intake Total 240 150 Output Total 150 500 Balance 90 -350 Weight 68.674 kg Intake: Oral 240 150 Output: Void Amount 150 Urine/Stool Mix 500 Other: Meal Dinner apple sauce Breakfast Percent of Meal Consumed 100% 100% 50% Feeding Ability Total Assistance Total Assistance Urine Appearance Clear Clear Urine Color Dark Yellow Dark Yellow Dark Yellow Stool Size Moderate Large Large Stool Color Brown Brown Brown Stool Consistency Soft Soft Soft Formed Loose Loose Loose # Voids 1 OBJ DATA Labs CBC & Chem 7: 01/25/21 07:10 01/25/21 07:10 Labs: Abnormal Lab Results 01/25/21 01/25/21 01/24/21 07:10 07:10 05:48 RBC 4.02 L Hgb 10.6 L Hct 30.5 L MCV 75.9 L RDW 26.5 H MPV Lymph % (Auto) 12.1 L [place] % (Auto) 25.4 H Lymph # (Auto) 1.11 L [place] # (Auto) 2.32 H Chloride 109 H Carbon Dioxide Anion Gap 6.0 L Calcium 8.5 L 8.5 L Total Bilirubin 5.2 H 4.9 H Direct Bilirubin 2.8 H 2.4 H GGT 116 H 100 H AST 112 H 70 H ALT 40 H Alkaline Phosphatase 222 H 199 H Ammonia Lactate Dehydrogenase 410 H 268 H Total Protein 5.3 L Albumin 2.8 L 2.3 L Albumin/Globulin Ratio 0.9 L 0.8 L Urine Urobilinogen Urine Mucus 01/24/21 01/23/21 01/23/21 05:48 20:12 15:50 RBC 3.46 L 3.48 L Hgb 9.1 L 9.3 L Hct 26.7 L 27.1 L MCV 77.2 L 77.9 L RDW 25.8 H 26.3 H MPV 10.8 H 11.0 H Lymph % (Auto) 11.5 L 8.8 L [place] % (Auto) 23.1 H 22.3 H Lymph # (Auto) 1.13 L 0.91 L [place] # (Auto) 2.27 H 2.31 H Chloride Carbon Dioxide Anion Gap Calcium Total Bilirubin Direct Bilirubin GGT AST ALT Alkaline Phosphatase Ammonia Lactate Dehydrogenase Total Protein Albumin Albumin/Globulin Ratio Urine Urobilinogen 4.0 A Urine Mucus Few A 01/23/21 01/23/21 15:49 15:49 RBC Hgb Hct MCV RDW MPV Lymph % (Auto) [place] % (Auto) Lymph # (Auto) [place] # (Auto) Chloride Carbon Dioxide 31 H Anion Gap 3.0 L Calcium Total Bilirubin 3.5 H Direct Bilirubin GGT AST 77 H ALT Alkaline Phosphatase 239 H Ammonia 130 H Lactate Dehydrogenase Total Protein 5.8 L Albumin 2.6 L Albumin/Globulin Ratio 0.8 L Urine Urobilinogen Urine Mucus Meds: Medications Acetaminophen (Acetaminophen 325 Mg Tablet) 650 mg PO Q4-6HP PRN; Protocol PRN Reason: Per Pain Protocol/Fever > 101 Bisacodyl (Bisacodyl 10 Mg Supp.Rect) 10 mg [place] Q2-3DAYS PRN PRN Reason: Constipation Docusate Sodium (Docusate Sodium 100 Mg Capsule) 100 mg PO BID [facility] Last Admin: 01/25/21 08:42 Dose: 100 mg Documented by: Guaifenesin/Codeine Phosphate (Guaifenesin/Codeine 10 Ml Udc) 10 ml PO Q4HP PRN PRN Reason: Cough Heparin Sodium (Porcine) (Heparin 5,000 Unit/Ml Vial) 5,000 unit SQ Q12 [facility] Last Admin: 01/25/21 08:42 Dose: 5,000 unit Documented by: Hydromorphone HCl (Hydromorphone 0.5 Mg/0.5 Ml Syringe) 0.25 - 0.5 mg IV Q4HP PRN; Protocol PRN Reason: Per Pain Protocol Last Admin: 01/24/21 23:09 Dose: 0.25 mg Documented by: Potassium Chloride 40 meq/ (Dextrose) 520 mls @ 130 mls/hr IV UD PRN PRN Reason: K+ = or < 3.5 Acetaminophen (Ofirmev) 650 mg in 65 mls @ 130 mls/hr IV Q6HP PRN; Protocol PRN Reason: Per Pain Protocol/Fever > 101 Magnesium Sulfate (Magnesium Sulfate) 2 gm in 50 mls @ 50 mls/hr IV UD PRN PRN Reason: MG = or < 1.7 Iron Carb/Multivit/Screven/Folic Acid (Multivit,Ther Iron,Ca,Fa & Min 1 Tablet) 1 tab PO DAILY [facility] Last Admin: 01/25/21 08:42 Dose: 1 tab Documented by: Lactulose (Lactulose 20 Gm/30 Ml Oral.Paula) 30 gm PO TID [facility] Last Admin: 01/25/21 08:42 Dose: 30 gm Documented by: Lorazepam (Lorazepam 2 Mg/Ml Vial) 0.5 mg IV Q4-6HP PRN PRN Reason: ANXIETY/SEDATION Last Admin: 01/25/21 06:49 Dose: 0.5 mg Documented by: Melatonin (Melatonin 3 Mg Tablet) 3 mg PO HSP PRN PRN Reason: Insomnia Ondansetron HCl (Ondansetron 4 Mg Odt Tablet) 4 mg SL Q4-6HP PRN; Protocol PRN Reason: Nausea And Vomiting Ondansetron HCl (Ondansetron 4 Mg/2 Ml Vial) 4 mg IV Q4-6HP PRN; Protocol PRN Reason: Nausea And Vomiting Polyethylene Glycol (Polyethylene Glycol 3350 17 Gm Packet) 17 gm PO DAILYP PRN PRN Reason: Constipation Senna/Docusate Sodium (Sennosides/Docusate Sodium 1 Tab Tablet) 1 tab PO HS [facility] Last Admin: 01/24/21 21:20 Dose: 1 tab Documented by: Sodium Chloride (0.9 % Sodium Chloride 10 Ml Syringe) 10 ml IV Q8 [facility] Last Admin: 01/25/21 06:01 Dose: 10 ml Documented by: A/P Narrative A/P Narrative: * Hepatic encephalopathy-family desires to discontinue all aggressive interventions including lactulose/treatment for hepatic encephalopathy. Patient will transition to hospice * End-stage liver disease With cirrhosis and ascites . Transition to hospice pe r family recommendation * Anxiety disorder -continue as needed benzodiazepine * Chronic pain on as needed opioids * DNR comfort care Plan * Initiate hospice/palliation * Possible discharge 24-hour with home hospice Time Spent With Patient Time: Time spent on care coordination/discussion with GI, nursing staff/patient's family regarding care coordination and transition to hospice in excess of 85 minutes
[2021-01-25] MEDS: HYDROmorphone 0.5 MG/0.5 ML SYRINGE IV PRN (12:58)
[2021-01-25] MEDS ORDERED: ONDANSETRON 4 MG ODT TABLET SL PRN (14:09)
[2021-01-25] MEDS ORDERED: SCOPOLAMINE 1 PATCH PATCH TOPICAL SCH (14:15)
[2021-01-25] MEDS: LORazepam 1 MG TABLET SL PRN ×2 (18:33→22:43)
[2021-01-25] MEDS: morphine 20 MG/ML ORAL.CONC SL PRN (19:34)
[2021-01-25] MEDS ORDERED: 0.9 % SODIUM CHLORIDE 10 ML SYRINGE IV SCH (22:00)
[2021-01-26] MEDS: morphine 20 MG/ML ORAL.CONC SL PRN ×4 (00:19→07:53)
[2021-01-26] MEDS: LORazepam 1 MG TABLET SL PRN (03:29)
[2021-01-26] MEDS: 0.9 % SODIUM CHLORIDE 10 ML SYRINGE IV SCH (04:38)
--- NOTE | 2021-01-26 09:03 | Discharge Summary ---
Discharge Provider Provider Patient information: Note initiated : 01/26/21 at 9:00 am Service Date, if different from initiated Date: [] Patient: Neal Bolaños a 65 y/o M admitted on 01/23/21 for leg and abdomen swelling. Discharge diagnosis * End-of-life palliative care in the setting of hepatocellular carcinoma/end- stage liver disease cirrhosis-continue hospice at home. Continue as needed opioids/benzodiazepines/diet and therapies directed towards comfort * Hepatic encephalopathy * End-stage liver disease With cirrhosis and ascites * Anxiety disorder * Chronic pain Brief hospital course : History of present illness: Mr. Bolaños is a 65 year old M with a history of liver malignancy with metastasis on treatment for the last 4 years. Patient has been on palliative medicine and has been working towards hospice transition. For the last 3 days patient has become increasingly agitated confused and stopped taking his lactulose and pain medications. He was brought in by his due to significant change in mental status and agitation. Initial work-up was consistent with hepatic encephalopathy. Patient was started on lactulose and subsequently hospitalist service was consulted At the time of my evaluation patient is accompanied with his . She was able to answer most the questions. Patient is totally confused with a GCS of 6. He is unable to provide any meaningful history or participate in review of systems. He does endorses to tense swollen abdomen however no apparent respiratory distress. Per patient did not have any recent fever, diarrhea, bloody emesis or worsening abdominal pain but endorses to abdominal distention. 01/24-patient remains encephalopathic. Status post tension enema. Continue further enemas. at bedside. Appears very distressed. Case discussed with patient's daughter on phone along with . They would want to continue existing treatment to improve encephalopathy. Also consulted GI for further input. expressed a desire to initiate hospice and towards that flight Case management was consulted to explore available resources. 01/25-patient remains encephalopathic. Extensive agitation requiring benzodiazepine. requested discontinuation of lactulose enemas and other medications. Extensive conversation in the presence of nursing staff/case management and jewelry sales coordinator with patient and her daughter. Family wishes to transition to comfort care/hospice and discontinuation of all aggressive interventions including labs/vital check/all medications directed towards his prior medical health issues. Patient will be discharged to home with hospice while coordination is underway by hospice team and case management to procure hospital bed and other supplies. 01/26-patient remains on comfort care interventions. Discharging home with home hospice today. No overnight events or concerns per nursing staff. Date of admission: 01/23/21 21:13 Discharge date: 01/26/21 Primary care physician: Vitaliy Chen PA-C Consults: 01/23/21 Consult to Physician [CONS] Stat Comment: Consulting Provider: Blayne Andres Reason For Exam: Physician to Consult 01/24/21 11:12 Consult to Physician [CONS] Routine Comment: Consulting Provider: Felecia Aguilar Reason For Exam: Physician to Consult Discharge Meds Discharge Medications Home Medications baclofen 5 mg tablet 5 mg PO TID #90 tab 09/10/20 [Rx Confirmed 01/23/21 Last Taken Unknown] acetaminophen [Tylenol] 650 mg PO Q4-6HP PRN #10 tab 01/26/21 [Rx Last Taken Unknown] lorazepam 1 mg SL Q4HP PRN #10 tab 01/26/21 [Rx Last Taken Unknown] morphine concentrate 5 - 10 mg SL Q2HP PRN #10 ml 01/26/21 [Rx Last Taken Unknown] ondansetron 4 mg SL Q4HP PRN #10 tab 01/26/21 [Rx Last Taken Unknown] scopolamine base [Transderm-Scop] 1 patch TOPICAL Q72H #4 ea 01/26/21 [Rx Last Taken Unknown] COURSE Hospital Course Hospital course: . Discharge diagnosis: ES LD/hepatic encephalopathy Time Spent with Patient Time attestation: Total time spent providing and/or coordinating discharge services: EXAM Constitutional Vitals: Temp Pulse Resp BP Pulse Ox 97.6 F 93 H 20 165/89 97 01/25/21 20:36 01/25/21 20:36 01/25/21 20:36 01/25/21 20:36 01/25/21 20:36 Discharge Plan Patient/Caregiver Discharge Instructions Activity: other Diet: Regular Diet Activity Restrictions/Additional Instructions: Diet and therapies directed towards comfort Home hospice Prescriptions: New morphine concentrate 100 mg/5 mL (20 mg/mL) Solution 5 - 10 mg SL Q2HP PRN (Reason: Per Pain Protocol) Qty: 10 RF: 0 lorazepam 1 mg Tablet 1 mg SL Q4HP PRN (Reason: Agitation) Qty: 10 RF: 0 scopolamine base [Transderm-Scop] 1 mg over 3 days Patch 3 Day 1 patch topical Q72H Qty: 4 RF: 0 ondansetron 4 mg Tablet,Disintegrating 4 mg SL Q4HP PRN (Reason: Nausea And Vomiting) Qty: 10 RF: 0 acetaminophen [Tylenol] 325 mg Tablet 650 mg PO Q4-6HP PRN (Reason: Per Pain Protocol/Fever > 101) Qty: 10 RF: 0 Continued baclofen 5 mg tablet 5 mg PO TID Qty: 90 RF: 0 Discontinued lactulose 20 gram/30 mL solution 20 g PO BID Qty: 3000 RF: 2 oxycodone 10 mg tablet 10 mg PO QID Qty: 120 RF: 0 tramadol 50 mg tablet 50 mg PO TID PRN (Reason: pain) Qty: 90 RF: 0 Hold Instructions: Doctor's Order duloxetine 30 mg capsule,delayed release(DR/EC) See Rx Instructions PO .COMPLEX Qty: 90 RF: 5 spironolactone 100 mg tablet 100 mg PO QAM Qty: 30 RF: 0 folic acid 1 mg Tablet 1 mg PO DAILY RF: 0 Follow Up Plan Follow up with: Vitaliy Chen PA-C [Primary Care Provider] - Patient Disposition: Hospice - Home Rehab Potential: Serious I certify that the patient requires SNF services: No Overall status at discharge: patient is not back to baseline Discharge Orders: Discharge Order (Routine); Ordered 01/26/21 Ordered By: Blayne Andres
== END 2021-01-26 09:45 | disposition hospice, home (50) | DRG 441 ==
LOC: ED 14:58 → MEDSUR 21:13
PROVIDERS: ADMIT Internal Medicine; ATTEND Internal Medicine